=== PATIENT | female | born 1945 | race Caucasian/White ===

== ENCOUNTER → 2017-07-20 11:52 | Outpatient (CLI) | payer MEDICARE, SELFPAY ==
[2017-07-20 14:17] LABS: Absolute Lymphocyte Count 2.44 X10^3/ul (0.83-4.51); Absolute Neutrophil Count 7.2 X10^3/uL (2.0-7.7); Basophil# 0.03 X10^3/uL; Basophil% 0.3 % (0-1); Eosinophils% 1.8 % (0-5); Lymphocyte # 2.44 X10^3/ul (4.0); Lymphocyte % 22.1 % (19-41); Mean Corp Hgb Conc 33.3 g/gl (32-36); Mean Corpuscular Hgb 33.7 pg (27.0-32.0); Mean Platelet Vol. 9.3 fl (6.2-12.0); Monocyte# 1.17 X10^3/uL; Monocyte% 10.6 % (0-10); Neutrophil # 7.17 X10^3/uL (2.7-7.7); Neutrophil % 64.9 % (47-70); Platelet Count 340 K/mm3 (150-450); RBC Distribution Width CV 14.1 % (11.6-14.6); RBC Distribution Width SD 50.7 fl (35.1-43.9); Red Blood Count 4.16 M/mm3 (4.2-5.4)
[2017-07-20 14:18] LABS: POSITIVE COUNT NO; POSITIVE DIFFERENTIAL NO; POSITIVE MORPHOLOGY NO
[2017-07-20 14:22] LABS: ALB/GLOB Ratio 1.3 RATIO (0.9-2.4); AST(SGOT) 29 U/L (15-37); Alanine Aminotransfer ALT/SGPT 26 U/L (13-56); Albumin, Serum 4.5 g/dL (3.2-5.0); Alkaline Phosphatase 77 U/L (45-117); Anion Gap 8 (5-15); BUN 22 mg/dL (7-18); BUN/Creat Ratio 15.8 RATIO (10-20); Calcium,Total 9.9 mg/dL (8.5-10.1); Chloride 102 mmol/L (98-107); Creatinine, Serum 1.39 mg/dL (0.55-1.02); EST Glomerular Filtration Rate 40 mL/min (>60); Est Glom Filt Rate - Afr Amer 48 mL/min (>60); Globulin 3.5 g/dL (2.2-4.2); Glucose 67 mg/dL (74-106); Potassium 3.9 mmol/L (3.5-5.1); Sodium Level 139 mmol/L (136-145)
== END ==
PROVIDERS: Family Provider Family Medicine; PCP Family Medicine; Visit Provider Internal Medicine Rheumatology
DX: M06.032 Rheumatoid arthritis without rheumatoid factor, left wrist (principal); M79.7 Fibromyalgia; M16.0 Bilateral primary osteoarthritis of hip; M50.30 Other cervical disc degeneration, unspecified cervical region; M96.1 Postlaminectomy syndrome, not elsewhere classified; E03.9 Hypothyroidism, unspecified; Z79.899 Other long term (current) drug therapy
CPT/HCPCS: 36415; 80053; 85025

== ENCOUNTER → 2017-11-22 09:48 | Outpatient (CLI) | payer MEDICARE, SELFPAY | PROVIDERS: Family Provider Family Medicine; PCP Family Medicine; Visit Provider Family Medicine | DX: Z12.31 Encounter for screening mammogram for malignant neoplasm of breast (principal) | CPT/HCPCS: 77063; 77067 ==

== ENCOUNTER → 2017-12-19 13:14 | Outpatient (CLI) | payer MEDICARE, SELFPAY ==
--- NOTE | 2017-12-19 13:20 | CDU_ITS ---
Reason For Study: PVD Rt. Velocities/BP Lt. Velocities/BP Prox CCA 65/16 cm/sec. Prox CCA 89/23 cm/sec. Mid CCA 65/26 cm/sec. Mid CCA 83/29 cm/sec. Dist CCA 64/24 cm/sec. Dist CCA 77/29 cm/sec. Prox ICA 57/22 cm/sec. Prox ICA 41/12 cm/sec. Mid ICA 77/33 cm/sec. Mid ICA 59/23 cm/sec. Dist ICA 103/48 cm/sec. Dist ICA 138/62 cm/sec. Rt. ICA/CCA = 1.18. Lt. ICA/CCA = .7. Prox ECA 56/10 cm/sec. Prox ECA 63/19 cm/sec. Rt. Vert. 36/14 cm/sec. Lt. Vert. 57/17 cm/sec. Right Extracranial There is homogeneous, smooth atherosclerotic plaque noted in the right common carotid artery. There is heterogeneous, smooth atherosclerotic plaque noted in the right internal carotid artery. There is heterogeneous, irregular atherosclerotic plaque noted in the right external carotid artery. Antegrade flow is noted in the right vertebral artery. Left Extracranial There is homogeneous, smooth atherosclerotic plaque noted in the left common carotid artery. There is no significant atherosclerotic plaque noted in the left internal carotid artery. There is homogeneous, smooth atherosclerotic plaque noted in the left external carotid artery. Antegrade flow is noted in the left vertebral artery. Procedure Carotid Duplex 31994. Exam performed in department. Interpretation Summary Minimal smooth plague within the right internal carotid with <50% stenosis. No significant plague within the left internal carotid with <50% stenosis Normal flow bilateral external carotids Patent and antegrade vertebrals bilaterally Ordering Physician: Rex Garcia Referring Physician: TYE ODOM Performed By: Lara German, PHANI, RVT
--- NOTE | 2017-12-19 13:20 | ECHOD_ITS ---
Reason For Study: PHTN Procedure This was a 2D Doppler, Color Flow transthoracic echocardiogram. Exam performed in department. Left Ventricle Normal size and thickness. The estimated ejection fraction is 65 %. Stage 1 diastolic dysfunction. No regional wall motion abnormalities noted. Right Ventricle Normal size and thickness. A moderator band is seen in the right ventricle. Normal systolic function. Atria Normal left atrium. Normal right atrium. Normal atrial septum. Mitral Valve The mitral valve is structurally normal. No prolapse or stenosis seen. Trivial mitral valve insufficiency. Tricuspid Valve Normal tricuspid valve. Mild (1+) tricuspid valve insufficiency. Right ventricular systolic pressure estimated to be 41 mmHg. Mild pulmonary hypertension. Aortic Valve Normal aortic valve. Trisinus/trileaflet aortic valve. Pulmonic Valve Normal pulmonic valve. Great Vessels Normal aortic root. Normal arch. Normal inferior vena cava. Inferior vena cava collapse with sniff. Pericardium/Pleural No pericardial effusion. MMode/2D Measurements & Calculations LVIDd: 4.1 cm IVSd: 1.1 cm Ao root diam: 3.4 cm LVIDs: 2.5 cm LVPWd: 1.00 cm LA dimension: 3.0 cm RVDd: 3.1 cm FS: 38.9 % LAV(MOD-bp): 53.7 ml LA A4 area: 19.3 cm2 RA A4 area: 25.3 cm2 LAV(MOD-bp) Indexed: 30.6 ml/m2 LAV(MOD-sp2): 63.4 ml LAV(MOD-sp4): 46.9 ml Doppler Measurements & Calculations MV E max segun: 53.6 cm/sec Lat Peak E' Segun: 7.7 cm/sec Med Peak E' Segun: 12.8 cm/sec MV A max segun: 87.9 cm/sec E/E' lat: 6.9 E/E' med: 4.2 MV E/A: 0.61 Ao V2 max: 131.6 cm/sec LV V1 max: 98.8 cm/sec PA V2 max: 99.0 cm/sec Ao max P.9 mmHg LV V1 max P.9 mmHg TR max segun: 284.4 cm/sec TR max P.4 mmHg Interpretation Summary The estimated ejection fraction is 65 %. Stage 1 diastolic dysfunction. Trivial mitral valve insufficiency. Mild (1+) tricuspid valve insufficiency. Right ventricular systolic pressure estimated to be 41 mmHg. Mild pulmonary hypertension. Compared to echo report dated 07/06/2016, no appreciable changes noted. Ordering Physician: Rex Garcia Referring Physician: Stalin Wang Performed By: Melissa Duarte RDCS, RVT
== END ==
PROVIDERS: Family Provider Family Medicine; PCP Family Medicine; Visit Provider Internal Medicine Cardiovascular Disease
DX: I65.23 Occlusion and stenosis of bilateral carotid arteries (principal); I27.21 Secondary pulmonary arterial hypertension
CPT/HCPCS: 93306; 93880

== ENCOUNTER → 2017-12-20 12:22 | Outpatient (CLI) | payer MEDICARE, SELFPAY ==
--- NOTE | 2017-12-20 12:25 | STE_ITS ---
Reason For Study: Pre-Op Stress Results Protocol: Dobutamine Stress Echo Maximum Predicted HR: 150 bpm Target HR: 128 bpm% Maximum Pre dicted HR: 86 % DurationHeart Rate Stage (mm:ss) (bpm) BPComm ent Baseline 81 134/92 No Chest Pain DSE 10 MCG 3:13 85 143/104No Chest Pain DSE 20 MCG 3:00 10 6 144/94 No Chest Pain DSE 30 MCG 3:04 12 1 125/75 No Chest Pain DSE 40 MCG 2:55 12 9 107/68 No Chest Pain Recovery 89 123/85 No Chest Pain Stress Duration: 12:12 mm:ss Maximum Stress HR: 129 bpmME TS: 1 Baseline Echocardiogram Findings The estimated ejection fraction is 65 %. Stress Echo Wall motion Data Resting WMIntermediate WMStress WM Resting Wall Motion Wall Motion Stress No regional wall motion No regional wall motion abnormalities noted. abnormalities noted. EKG Data The baseline ECG demonstrates normal sinus rhythm with at rate of _ beats per minute. The patient was titrated from 10 mcg to a maximum of 40 mcg of dobutamine during the stress. The maximum heart rate attained was 133 beats per minute. This was 88% of maximum predicted heart rate. During dobutamine infusion, there were no ST or T wave changes noted to suggest ischemia. No clinical angina was noted. Interpretation Summary The estimated ejection fraction is 65 %. Normal, adequate, dobutamine echocardiogram. Negative for ischemia by EKG and echocardiographic criteria. No anginal symptoms noted. Rare PACs noted. Appropriate blood pressure response to dobutamine. Final LVEF is 75%. Test terminated due to the attainment of target heart rate. Ordering Physician: Rex Garcia Referring Physician: Rex Garcia Performed By: Kalyani Rossi RDCS
== END ==
PROVIDERS: Family Provider Family Medicine; PCP Family Medicine; Visit Provider Internal Medicine Cardiovascular Disease
DX: I36.1 Nonrheumatic tricuspid (valve) insufficiency (principal); R06.00 Dyspnea, unspecified; I10 Essential (primary) hypertension; I27.21 Secondary pulmonary arterial hypertension
CPT/HCPCS: 93017; 93350; J7030; A4216

== ENCOUNTER → 2018-05-17 13:10 | Outpatient (CLI) | payer MEDICARE, SELFPAY ==
[2018-03-04 13:21] VITALS: BMI 30.2
[2018-05-17 15:36] LABS: Absolute Lymphocyte Count 1.62 X10^3/ul (0.83-4.51); Absolute Neutrophil Count 2.2 X10^3/uL (2.0-7.7); Basophil# 0.02 X10^3/uL; Basophil% 0.4 % (0-1); Eosinophils% 4.3 % (0-5); Hematocrit 41.6 % (37-47); Hemoglobin 13.3 g/dl (12.0-15.0); Lymphocyte # 1.62 X10^3/ul (4.0); Lymphocyte % 35.1 % (19-41); Mean Corpuscular Hgb 31.1 pg (27.0-32.0); Mean Corpuscular Volume 97.4 fL (81-99); Mean Platelet Vol. 9.7 fl (6.2-12.0); Monocyte# 0.54 X10^3/uL; Monocyte% 11.7 % (0-10); Neutrophil # 2.22 X10^3/uL (2.7-7.7); Neutrophil % 48.3 % (47-70); Platelet Count 291 K/mm3 (150-450); RBC Distribution Width CV 12.8 % (11.6-14.6); RBC Distribution Width SD 45.3 fl (35.1-43.9); Red Blood Count 4.27 M/mm3 (4.2-5.4); White Blood Count 4.6 K/mm3 (4.4-11.0)
[2018-05-17 15:38] LABS: POSITIVE COUNT NO; POSITIVE DIFFERENTIAL NO; POSITIVE MORPHOLOGY NO
[2018-05-17 16:07] LABS: T4 Free Direct 1.01 ng/dL (0.76-1.46); Thyroid Stim Hormone (TSH) 1.22 uIU/mL (0.358-3.74)
== END ==
PROVIDERS: Family Provider Family Medicine; PCP Family Medicine; Visit Provider Family Medicine
DX: R53.83 Other fatigue (principal)
CPT/HCPCS: 36415; 84439; 84443; 85025

== ENCOUNTER → 2018-09-11 10:35 | Outpatient (CLI) | payer MEDICARE, SELFPAY ==
[2018-06-10 08:46] VITALS: BMI 29.2
[2018-09-11 12:23] LABS: Absolute Lymphocyte Count 1.01 X10^3/ul (0.83-4.51); Basophil# 0.01 X10^3/uL; Basophil% 0.2 % (0-1); Eosinophil# 0.02 X10^3/uL; Eosinophils% 0.4 % (0-5); Hematocrit 39.8 % (37-47); Hemoglobin 12.9 g/dl (12.0-15.0); Lymphocyte # 1.01 X10^3/ul (4.0); Lymphocyte % 18.7 % (19-41); Mean Corp Hgb Conc 32.4 g/gl (32-36); Mean Corpuscular Hgb 31.4 pg (27.0-32.0); Mean Corpuscular Volume 96.8 fL (81-99); Mean Platelet Vol. 9.1 fl (6.2-12.0); Monocyte# 0.41 X10^3/uL; Monocyte% 7.6 % (0-10); Neutrophil # 3.95 X10^3/uL (2.7-7.7); Neutrophil % 72.9 % (47-70); Platelet Count 329 K/mm3 (150-450); RBC Distribution Width CV 13.9 % (11.6-14.6); RBC Distribution Width SD 48.1 fl (35.1-43.9); Red Blood Count 4.11 M/mm3 (4.2-5.4); White Blood Count 5.4 K/mm3 (4.4-11.0)
[2018-09-11 12:24] LABS: POSITIVE COUNT NO; POSITIVE DIFFERENTIAL NO; POSITIVE MORPHOLOGY NO
[2018-09-11 12:57] LABS: ALB/GLOB Ratio 0.9 RATIO (0.9-2.4); AST(SGOT) 29 U/L (15-37); Alanine Aminotransfer ALT/SGPT 29 U/L (13-56); Albumin, Serum 3.6 g/dL (3.2-5.0); Alkaline Phosphatase 71 U/L (45-117); Anion Gap 10 (5-15); BUN 22 mg/dL (7-18); Calcium,Total 9.7 mg/dL (8.5-10.1); Chloride 104 mmol/L (98-107); EST Glomerular Filtration Rate 52 mL/min (>60); Est Glom Filt Rate - Afr Amer 63 mL/min (>60); Globulin 3.9 g/dL (2.2-4.2); Glucose 120 mg/dL (74-106); Potassium 4.2 mmol/L (3.5-5.1); Protein, Total 7.5 g/dL (6.4-8.2); Sodium Level 140 mmol/L (136-145); Thyroid Stim Hormone (TSH) 2.18 uIU/mL (0.358-3.74)
== END ==
PROVIDERS: Family Provider Family Medicine; PCP Family Medicine; Visit Provider Internal Medicine Rheumatology
DX: M06.00 Rheumatoid arthritis without rheumatoid factor, unspecified site (principal); M16.0 Bilateral primary osteoarthritis of hip; M50.30 Other cervical disc degeneration, unspecified cervical region; M96.1 Postlaminectomy syndrome, not elsewhere classified; M79.7 Fibromyalgia; E03.9 Hypothyroidism, unspecified; Z79.899 Other long term (current) drug therapy
CPT/HCPCS: 36415; 80053; 84439; 84443; 85025

== ENCOUNTER → 2018-11-25 11:54 | Outpatient (CLI) | payer MEDICARE, SELFPAY ==
[2018-06-10 08:46] VITALS: BMI 29.2
--- NOTE | 2018-11-25 11:56 | BI_ITS ---
MAMMOGRAPHY - BILATERAL SCREENING 3-D TOMOSYNTHESIS REASON FOR EXAM: Female, 73 years old. Bilateral Screening 3-D tomosynthesis PERTINENT HISTORY: Sister with breast cancer.. TECHNIQUE: 2-D mammograms and 3-D Tomosynthesis of the breast (s) were performed. CAD was performed. COMPARISON: 11/22/2017, 06/23/2016. FINDINGS: The breast composition is composed of scattered fibroglandular density. Small 4.5 mm smooth margined nodule along the right upper-outer quadrant, stable since prior Scattered benign calcifications are seen. No dense spiculated masses or suspicious microcalcifications are identified. No architectural distortion is identified. There is no skin thickening or retraction. There has been no significant change since the prior study. BI/SCREEN MAMM (CAD) W/YUMIKO BILAT IMPRESSION: No mammographic signs of malignancy. Routine yearly mammograms recommended. ASSESSMENT CATEGORY: BIRADS Category 2: Benign. A letter regarding these results will be sent to the patient by the facility within 30 days. FOLLOW UP RECOMMENDATION: Yearly follow up mammogram recommended. (A) Approximately 10% of breast cancers are not detected by mammography. A normal mammogram should not delay biopsy of a clinically suspicious abnormality. Electronically Signed: Jaspal Ramirez MD at 10:55 EDT Tel [phone], Service support ,
== END ==
PROVIDERS: Family Provider Family Medicine; PCP Family Medicine; Referring Provider Family Medicine; Visit Provider Family Medicine
DX: Z12.31 Encounter for screening mammogram for malignant neoplasm of breast (principal)
CPT/HCPCS: 77063; 77067

== ENCOUNTER → 2019-01-07 09:17 | Outpatient (CLI) | payer MEDICARE, SELFPAY ==
[2018-06-10 08:46] VITALS: BMI 29.2
[2019-01-07 12:34] LABS: Absolute Lymphocyte Count 1.97 X10^3/uL (0.83-4.51); Absolute Neutrophil Count 4.3 X10^3/uL (2.0-7.7); Basophil# 0.02 X10^3/uL; Basophil% 0.3 % (0-1); Eosinophil# 0.12 X10^3/uL; Eosinophils% 1.7 % (0-5); Hematocrit 44.4 % (37-47); Hemoglobin 14.1 g/dL (12.0-15.0); Lymphocyte # 1.97 X10^3/ul (4.0); Lymphocyte % 27.5 % (19-41); Mean Corp Hgb Conc 31.8 g/dL (32-36); Mean Corpuscular Hgb 30.9 pg (27.0-32.0); Mean Corpuscular Volume 97.4 fL (81-99); Mean Platelet Vol. 9.7 fl (6.2-12.0); Monocyte# 0.72 X10^3/uL; Monocyte% 10.1 % (0-10); NRBC Flagged by Analyzer 0 % (0-5); Platelet Count 295 K/mm3 (150-450); RBC Distribution Width CV 12.9 % (11.6-14.6); RBC Distribution Width SD 46.3 fl (35.1-43.9); Red Blood Count 4.56 M/mm3 (4.2-5.4); White Blood Count 7.2 K/mm3 (4.4-11.0)
[2019-01-07 13:06] LABS: Anion Gap 9 (5-15); BUN 27 mg/dL (7-18); BUN/Creat Ratio 22.9 RATIO (10-20); Calcium,Total 8.9 mg/dL (8.5-10.1); Chloride 103 mmol/L (98-107); Creatinine, Serum 1.18 mg/dL (0.55-1.02); EST Glomerular Filtration Rate 48 mL/min (>60); Est Glom Filt Rate - Afr Amer 58 mL/min (>60); Glucose 96 mg/dL (74-106); Sodium Level 142 mmol/L (136-145); Thyroid Stim Hormone (TSH) 0.39 uIU/mL (0.358-3.74)
== END ==
PROVIDERS: Family Provider Family Medicine; PCP Family Medicine; Visit Provider Family Medicine
DX: R53.83 Other fatigue (principal); R42 Dizziness and giddiness; E03.9 Hypothyroidism, unspecified
CPT/HCPCS: 36415; 80048; 84439; 84443; 85025

== ENCOUNTER → 2019-01-25 10:14 | Outpatient (CLI) | payer MEDICARE, SELFPAY ==
[2019-01-23 11:24] VITALS: BMI 29.8
[2019-01-25 11:22] LABS: AST(SGOT) 32 U/L (15-37); Alanine Aminotransfer ALT/SGPT 21 U/L (13-56); Alkaline Phosphatase 82 U/L (45-117); Bilirubin, Direct 0.11 mg/dL (0.00-0.30); Cholesterol 179 mg/dL (200); Globulin 3.8 g/dL (2.2-4.2); High Density Lipoprotein 70 mg/dL; Protein, Total 7.8 g/dL (6.4-8.2); Triglycerides 59 mg/dL; Very Low Density Lipoprotein 12 mg/dL (5-40)
== END ==
PROVIDERS: Family Provider Family Medicine; PCP Family Medicine; Referring Provider Internal Medicine Cardiovascular Disease; Visit Provider Internal Medicine Cardiovascular Disease
DX: E78.00 Pure hypercholesterolemia, unspecified (principal)
CPT/HCPCS: 36415; 80061; 80076

== ENCOUNTER → 2019-02-06 09:15 | Outpatient (CLI) | payer MEDICARE, SELFPAY ==
[2019-01-23 11:24] VITALS: BMI 29.8
--- NOTE | 2019-02-06 09:17 | ECHOD_ITS ---
Reason For Study: PRE OP EXAM Procedure This was a 2D Doppler, Color Flow transthoracic echocardiogram. Exam performed in department. Left Ventricle Normal size and thickness. The estimated ejection fraction is 65 %. Stage 1 diastolic dysfunction. No regional wall motion abnormalities noted. Right Ventricle Normal size and thickness. A moderator band is seen in the right ventricle. Normal systolic function. Atria Normal left atrium. The right atrium is moderately enlarged. Normal atrial septum. Bubble contrast study negative for right to left interatrial shunt. Mitral Valve The mitral valve is structurally normal. No prolapse or stenosis seen. Trivial mitral valve insufficiency. Tricuspid Valve Normal tricuspid valve. Mild to moderate (1-2+) tricuspid valve insufficiency. Right ventricular systolic pressure estimated to be 31 mmHg. Aortic Valve Normal aortic valve. Trisinus/trileaflet aortic valve. Pulmonic Valve Normal pulmonic valve. Trivial pulmonic valve insufficiency. Great Vessels Normal aortic root. Normal arch. Normal inferior vena cava. Inferior vena cava collapse with sniff. Pericardium/Pleural No pericardial effusion. MMode/2D Measurements & Calculations LVIDd: 4.9 cm IVSd: 0.99 cm Ao root diam: 3.2 cm LVIDs: 2.9 cm LVPWd: 0.89 cm RVDd: 3.5 cm FS: 41.9 % LAV(MOD-bp): 45.0 ml LA A4 area: 17.6 cm2 LA dimension(2D): 3.5 cm LAV(MOD-bp) Indexed: 25.6 ml/m2 LAV(MOD-sp2): 47.5 ml LAV(MOD-sp4): 42.4 ml RA A4 area: 27.6 cm2 Time Measurements MV dec time: 0.22 sec Doppler Measurements & Calculations MV E max segun: 52.9 cm/sec Lat Peak E' Segun: 6.9 cm/sec Med Peak E' Segun: 9.0 cm/sec MV A max segun: 83.3 cm/sec E/E' lat: 7.7 E/E' med: 5.9 MV E/A: 0.64 Ao V2 max: 146.7 cm/sec LV V1 max: 88.8 cm/sec PA V2 max: 94.5 cm/sec Ao max P.6 mmHg LV V1 max P.2 mmHg TR max segun: 252.0 cm/sec TR max P.4 mmHg Interpretation Summary The estimated ejection fraction is 65 %. Stage 1 diastolic dysfunction. The right atrium is moderately enlarged. Bubble contrast study negative for right to left interatrial shunt. Trivial mitral valve insufficiency. Mild to moderate (1-2+) tricuspid valve insufficiency. Right ventricular systolic pressure estimated to be 31 mmHg. Compared to echo report dated 12/19/2017, LV Function has remained the same and RVSP has improved from 41 to 31 mm Hg. Ordering Physician: Rex Garcia Referring Physician: Stalin Wang Performed By: Melissa Duarte, PHANI, RVT
== END ==
PROVIDERS: Family Provider Family Medicine; PCP Family Medicine; Referring Provider Internal Medicine Cardiovascular Disease; Visit Provider Internal Medicine Cardiovascular Disease
DX: Z01.810 Encounter for preprocedural cardiovascular examination (principal)
CPT/HCPCS: 93306; A4216

== ENCOUNTER → 2019-02-13 12:34 | Outpatient (CLI) | payer MEDICARE, SELFPAY ==
[2019-01-23 11:24] VITALS: BMI 29.8
[2019-02-06 09:44] VITALS: BMI 29.8
--- NOTE | 2019-02-13 12:35 | STE_ITS ---
Reason For Study: PRE-OP, HTN Stress Results Protocol: Dobutatmine Stress Echo Maximum Predicted HR: 149 bpm Target HR: 127 bpm % Maximum Predicted HR: 87 % DurationHeart Rate Stage (mm:ss) (bpm) BP Dose Comment BASELINE 83 157/92 DSE- 10 MCG 3:54 86 171/61427.00NO SX DSE- 20 MCG 3:15 118 151/9020.00NO SX DSE- 30 MCG 2:29 129 130/9030.00NO SX RECOVERY 96 129/86 DENIES COMPLAINT Stress Duration: 9:38 mm:ss Maximum Stress HR: 129 bpm Baseline Echocardiogram Findings The estimated ejection fraction is 65 %. Stress Echo Wall motion Data Resting WM Intermediate WM Stress WM Resting Wall Motion Wall Motion Stress No regional wall motion No regional wall motion abnormalities noted. abnormalities noted. EKG Data Normal intervals are noted. The patient was titrated from 10 mcg to a maximun of 30 mcg of dobutamine during the stress. The maximum heart rate attained was 142 beats per minute. This was 95% of maximum predicted heart rate. During dobutamine infusion, there were no ST or T wave changes noted to suggest ischemia. No clinical angina was noted. No arrhythmias noted. Interpretation Summary The estimated ejection fraction is 65 %. Normal, adequate, dobutamine echocardiogram. Negative for ischemia by EKG and echocardiographic criteria. No anginal symptoms noted. No arrhythmias noted. Hypertensive blood pressure response to dobutamine. Final LVEF is 75%. Test terminated due to target heart rate achieved. No complications. Ordering Physician: Rex Garcia Referring Physician: Rex Garcia Performed By: Kalyani Rossi RDCS
== END ==
PROVIDERS: Family Provider Family Medicine; PCP Family Medicine; Referring Provider Internal Medicine Cardiovascular Disease; Visit Provider Internal Medicine Cardiovascular Disease
DX: Z01.810 Encounter for preprocedural cardiovascular examination (principal); I10 Essential (primary) hypertension; I27.21 Secondary pulmonary arterial hypertension; I36.1 Nonrheumatic tricuspid (valve) insufficiency; Z79.899 Other long term (current) drug therapy
CPT/HCPCS: 93017; 93350; J7040; A4216

== ENCOUNTER 2019-03-26 08:28 | Inpatient (IN) | payer MEDICARE, SELFPAY ==
[2018-06-10 08:46] VITALS: BMI 29.2
[2019-02-06 09:44] VITALS: BMI 29.8
[2019-03-12 11:17] VITALS: BP 139/93; PULSE 67; RESP 17; TEMP 37.2; O2SAT 99; BMI 31.6
[2019-03-12 12:54] LABS: Absolute Lymphocyte Count 2.35 X10^3/uL (0.83-4.51); Absolute Neutrophil Count 4.2 X10^3/uL (2.0-7.7); Basophil# 0.02 X10^3/uL; Basophil% 0.3 % (0-1); Eosinophil# 0.07 X10^3/uL; Hematocrit 41.4 % (37-47); Hemoglobin 13.5 g/dL (12.0-15.0); Lymphocyte # 2.35 X10^3/ul (4.0); Lymphocyte % 32.3 % (19-41); Mean Corp Hgb Conc 32.6 g/dL (32-36); Mean Corpuscular Hgb 31.2 pg (27.0-32.0); Mean Corpuscular Volume 95.6 fL (81-99); Mean Platelet Vol. 9.1 fl (6.2-12.0); Monocyte% 8.2 % (0-10); NRBC Flagged by Analyzer 0 % (0-5); Neutrophil # 4.23 X10^3/uL (2.7-7.7); Neutrophil % 58.1 % (47-70); Platelet Count 280 K/mm3 (150-450); RBC Distribution Width CV 13.6 % (11.6-14.6); RBC Distribution Width SD 47.8 fl (35.1-43.9); Red Blood Count 4.33 M/mm3 (4.2-5.4); White Blood Count 7.3 K/mm3 (4.4-11.0)
[2019-03-12 13:07] LABS: International Normalized Ratio 1.1; Prothrombin Time (Protime)PT. 13.6 SECONDS (11.7-14.9)
[2019-03-12 13:08] LABS: Partial Thromboplast Time 35.2 Seconds (24.1-36.2)
[2019-03-12 13:16] LABS: ALB/GLOB Ratio 1.1 RATIO (0.9-2.4); AST(SGOT) 32 U/L (15-37); Alanine Aminotransfer ALT/SGPT 25 U/L (13-56); Albumin, Serum 4.2 g/dL (3.2-5.0); Alkaline Phosphatase 76 U/L (45-117); Anion Gap 6 (5-15); BUN 18 mg/dL (7-18); BUN/Creat Ratio 16.5 RATIO (10-20); Bilirubin, Direct 0.13 mg/dL (0.00-0.30); Calcium,Total 9.8 mg/dL (8.5-10.1); Chloride 102 mmol/L (98-107); Creatinine, Serum 1.09 mg/dL (0.55-1.02); EST Glomerular Filtration Rate 53 mL/min (>60); Est Glom Filt Rate - Afr Amer 64 mL/min (>60); Estimated Creatinine Clearance 37.44 ml/min; Globulin 3.8 g/dL (2.2-4.2); Glucose 71 mg/dL (74-106); Potassium 3.8 mmol/L (3.5-5.1); Sodium Level 139 mmol/L (136-145)
--- NOTE | 2019-03-13 10:54 | PCM.HP.BLA ---
History and Physical History and Physical Patient Name: Meredith Nogueira : 1945 From: ZACHARY RAMIREZ PA-C DATE OF SURGERY: 03/26/2019 SCHEDULED PROCEDURE: revision right total knee arthroplasty HISTORY OF PRESENT ILLNESS: Preoperative history and physical exam was performed on March 12, 2019. This is a 73-year-old female who is been having ongoing pain in her right knee. Patient has had a previous right total knee arthroplasty by Dr. Jad Her on March 27, 2011. Patient has been having increased pain as well as instability in her right knee. She has required the use of her brace. She also has been using a cane for ambulatory assistance. Patient canceled her previous surgery due to her passing away. Patient states her pain is intermittent. She has increased pain going up and down stairs and sitting. She has difficult time with activities of daily living including housework and cleaning as well as leisure activities such as hiking. She has had falls as well as tripped/stumbled due to the right knee pain. Patient has tried rest, ice, heat, elevation with minimal relief. She has been through formal physical therapy without relief. She has continued to work on home exercises. Patient's pain can reach as high as a 5/10. Patient has a medical history of hypertension, intermittent palpitations, secondary pulmonary arterial hypertension, tricuspid valve insufficiency, fibromyalgia, gastroesophageal reflux disease, and rheumatoid arthritis. Patient currently takes Humira, prednisone, plaquenil, and methotrexate. She is also on gabapentin and Zanaflex. Patient does see a cot assembler. Patient has already stopped her Humira anticipating surgery. She denies any current fevers, chills, recent infections. There's been no chest pain or shortness of breath. We have obtain surgical clearance from patient's animal pathology teacher Dr. Garcia. After failing conservative measures and discussing treatment options of Dr. Samson Pink, the patient would like to proceed with a revision right total knee arthroplasty. REVIEW OF SYSTEMS: ROS: Const: Denies anorexia, anxiety, change in appetite, fever, difficulty sleeping and weight change. CV: Reports heart murmur, but denies chest pain, irregular heartbeat and peripheral vascular disease. Resp: Denies asthma, cough, pneumonia, sleep apnea, shortness of breath, tuberculosis and wheezing. GI: Reports constipation, but denies diarrhea, heartburn, nausea, rectal itching, bloody stools and vomiting. : Denies incontinence. Musculo: Reports leg swelling, pain and trouble walking, but denies weakness. Skin: Denies Raynaud's, history of shingles and tattoo. Neuro: Denies ambulatory dysfunction, dizziness, numbness/tingling and tremor. Psych: Denies anxiety, depression, insomnia, mental illness and stress. Thomas/Lymph: Denies anemia, bleeding/bruising tendency and past transfusion. Reviewed, no changes. PAST MEDICAL HISTORY: Advance Care Plan: No Advance Directives Effective Date: 02/13/2017 PMH: Medical Problems: Arthritis, Thyroid Disease, Fibromyalgia, Lupus Accidents: Fracture - L Elbow 2001 RT Shoulder Injury - (10/19/2014) FALL Surgical Hx: Hernia Repair - 2007 [facility] Hysterectomy - 1984 [facility] Tonsillectomy - 1956 [place], [place] Tubal Ligation - 1981 [facility] Arthroscopy - Torn Meniscus 2001 [facility] C Section 79,82 Knee Replacement - L TKR 02/13/08 [facility] Carpal Tunnel Release LT - [facility] 01/2010 Carpal Tunnel Release RT - [facility] 08/2010 RT Foot Surgery - 2009 Back Surgery - 03/14/2010-DR GAMBOA L2-3-4-5 FUSION RT TKR - 03/27/11 MARCELO @ [facility] LT Index Finger Synovectomy Of Metacarpophalangeal - (09/07/2011) MELO @ [facility] Julio Eye Lens Replacements RT Reverse Shoulder Replacement - (2015) [facility] RT Wrist - (2015) [facility] LT Hammer Toe - (2016) Anesthesia Complications: None Assistive Devices: Glasses, Dentures, Brace, Cane Reviewed and updated. 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 Personal Habits: Smoking: Patient has never smoked.Cigarette Use: Never.Alcohol: Denies use.Drug Use: Denies Use.Enjoy Exercising: Daily. Reviewed and updated. VITALS: Ht: 62 Wt: 173lb Wt k.473 BMI: 31.6 BP: 148/92 Pulse: 76 Resp: 14 T: 97.8 T: 36.6C ALLERGIES: PCN - Rash Pain Killers Unknown - (Prescription Only)Nausea Aspirin MEDICATIONS: Folic Acid 1 mg 2 po qdAY, Selenium 200 mcg 1po qday, Iron 65 mg 1po qday, Levothyroxine Sodium 112 mcg 1 by mouth every day, Pantoprazole Sodium 40 mg 1 by mouth every day, Venlafaxine HCL 75 mg one PO daily, Hydroxychloroquine Sulfate 200 mg 2 by mouth every day, Gabapentin 300 mg 1 by mouth three times a day, Tizanidine HCL 4 mg 1 by mouth at three times a day, Excedrin Migraine 250-250-65 mg prn for migraines, Humira Pen 40 mg/0.4ml uad, Prednisone 10 mg tad prn, Flonase Allergy Relief 50 mcg/Act 2 sprays each nostril daily, Mucinex D 60-600 mg 1 tab PO bid, Multi Vitamin Daily 1 tab PO daily, Vitamin C 500 mg 2 tabs PO daily, Magnesium 250 mg 2 tabs PO daily, Potassium Gluconate 595 (99 k) mg 1 tab PO daily, Vitamin B12 500 mcg 2 tabs PO daily, Calcium 1 tab PO daily, Vitamin D3 50 mcg (2000 Ut) 1 by mouth every day, Ensure Max Protein 1 drink daily PRE-OP EXAM: General appearance:NORMAL Other: Eyes: Conjunctivae and lids: NORMAL Pupils: ERR Ears, Nose, Mouth, and Throat: NORMAL Other: Inspection of lips, teeth and gums: NORMAL Other: Neck: Examination of neck: no masses noted. Respiratory: Assessment of respiratory effort: NORMAL Other: Auscultation of lungs: clear to auscultation no wheezes, rhonchi or rales. Cardiovascular: Auscultation of heart: regular rate and rhythm, no murmurs, gallops or rubs. Gastrointestinal: Exam of abdomen: soft, nontender, nondistended bowel sounds present. PHYSICAL EXAMINATION: Patient does walk without any antalgic gait. She does use a cane. Right knee previous incision is well healed without erythema or signs of infection. Patient has tenderness to palpation along the pes anserine. Range of motion: Right knee 5 hyperextension to 130 flexion. Patient has 4 anterior translation with anterior drawer exam, 7 valgus. At 30 correctable valgus alignment with 3 mm opening laterally, 2 mm medially. Sensation intact to light touch. Neurovascularly intact. IMAGING STUDIES: Previous x-rays of the right knee show progressive valgus alignment of the knee. It appears metal on metal contact consistent with fracturing of the polyethylene component. IMPRESSION: 1. Painful right total knee arthroplasty with instability 2. Hypertension 3. Secondary pulmonary arterial hypertension 4. Tricuspid valve insufficiency 5. Intermittent palpitations 6. Fibromyalgia 7. Gastroesophageal reflux disease 8. Rheumatoid arthritis PLAN: Dr. Samson Pink did discuss and review with the patient all treatment options including surgical versus nonsurgical options. Patient does wish to proceed with the above-stated procedure. Potential risks, benefits, and complications of the procedure were discussed in detail including but not limited to , infection, nerve and blood vessel damage, persistent pain, numbness, tingling, paresthesias, blood clot, pulmonary embolism, and requirement for possible further surgery. The patient expressed full understanding and has no further questions for the doctor. Patient does agree to proceed with the above-stated procedure and has signed the surgery consent form. This dictation was created using voice recognition software. Phonetic and/or grammatical errors may exist. ___ I have re-examined the patient. There are no clinical changes since date of exam. ___ See progress notes for changes. ___ Dictated on admission Date: Time: Signature:
[2019-03-26] VITALS (13 sets, daily range): BP systolic 103–138; BP diastolic 61–95; PULSE 75–102; RESP 16–18; TEMP 36.2–37.2; O2SAT 92–100; BMI 31.6
[2019-03-26] MEDS: Magnesium Sulfate 4gm/100mL 4 GM/100 ML IV.SOLN. IV (07:00)
[2019-03-26 09:21] LABS: Bedside Glucose 107 mg/dL (70-110)
[2019-03-26] MEDS: Gabapentin 600 MG Tablet PO (09:42)
[2019-03-26] MEDS: Acetaminophen 500 MG Tablet 1000 MG PO ×2 (09:43→22:09)
[2019-03-26] MEDS: Lactated Ringers 1,000 ML 125 ML IV ×3 (10:00→22:10)
[2019-03-26] MEDS: Cefazolin 2 GM in 0.9% Normal Saline 100 ML IV (10:40)
--- NOTE | 2019-03-26 12:22 | PCM.OPRPT ---
Report of Operation Date of Procedure: 03/26/19 Pre-Operative Diagnosis: Failed right total knee replacement, gross instability Post-Operative Diagnosis: Failed right total knee replacement, gross instability. Posterior lateral polyethylene fracture Surgery/Procedure Performed:: Complete revision right total knee replacement, entire femur and tibia Description of Surgical Findings:: Patient was grossly unstable intraoperatively with posterior lateral polyethylene fracture. Due to her previous cruciate retaining total knee replacement associated instability we needed to revise to a constrained implant. flatwork finisher: Nyla Salazar Type of Anesthesia:: Spinal Anesthesiologist: Kirby Steel Special Medications: 2 g Ancef, 1 g TXA at incision, 1 g TXA closure, 10 mg Decadron, joint cocktail (5 mg Duramorph, 30 mL of 0.5% Ropivicaine, 1000 units of epinephrine, 30 mg of Toradol) Estimated Blood Loss (mL): 75 Fluids Replaced: 1100 mL crystalloid Description of Procedure: Implants used: Femur: 4 TS Irish femur with 10 mm distal medial and lateral and lateral augments, 15 x 100 mm cemented stem Tibia: 5 universal tibial baseplate with 15 x 50 mm cemented stem. Size C tibial cone Poly: Size 5, 16 mm TS X3 polyethylene Brief history operative indications: 73-year-old female with total knee replacement in 2010. Patient demonstrated gross instability in the office with posterior lateral catching. After ruling out infection we agreed to proceed with revision total knee replacement which had risks which include but not limited to blood loss, DVTs, PEs, nervous damage, infection, the risk of anesthesia. Patient demonstrate understanding was able to sign informed consent. Medical clearance was obtained. Procedure: On the date of procedure patient's right lower extremity was marked in the preoperative area. The patient was then taken back to the operating room where the patient was placed on the table in the supine position. All bony prominences were identified a well-padded. Anesthesia assumed control of the C-spine and airway and remained controlled throughout the remainder of the procedure. A tourniquet was placed on the right upper thigh and the leg was prepped in a sterile fashion. The surgeon then scrubbed at this time. Upon reentering the room right lower extremity was draped in a standard orthopedic fashion. A timeout was then called and everyone agreed upon the side, the site, the procedure to be performed, patient's identity and antibiotics given. An Esmarch bandage was used to exsanguinate the extremity and the tourniquet was placed up to 250 mmHg with the knee in flexion. A midline skin incision was made using the previous incision and extending it proximally and distally to identify normal tissue planes. Medial and lateral flaps were developed appropriate releases. The standard medial parapatellar arthrotomy was made and the patella was subluxed laterally. At this time an aggressive synovectomy was performed re-creating the medial gutter first, then the suprapatellar pouch than the lateral gutter. Once this was completed the knee was flexed up an osteotome was used to remove the tibial polyethylene. The remainder of the synovium was debrided. The standard deep MCL release was done and the patella scar pad was resected and lateral releases were performed. Next our attention was directed to the femur. Wear flexible osteotomes and TPS saw were used to break up the implant cement interface. This was done both medially and laterally. After this is adequately lucent bone tamp was used to remove the femur component from the end of the bone. This was done with minimal bone loss. At this time attention was now directed towards the proximal tibia. Possible osteotome and TPS saw were then used to break up the proximal tibia implant interface and stacked osteotomes were used to remove the tibial implant. This was done with minimal bone loss. Our attention was then turned to the tibia where the intramedullary canal was reamed to 16 and a size C tibial cone was reamed. We then made a cleanup cut on the tibia, A drop kinza was then used to verify the cut. A size 5 tibial base plate was selected. the knee was flexed and the tibial component was pinned into place and the boss reamer was used to ream the proximal medullary canal. The trial implant was impacted in its prepared position. Our attention was then turned back to the femur or the femur intramedullary canal was reamed to 18 mm using the previous implants a size 4 TC G cutting guide with a 18 x 100 mm stem was put into place. The medial epicondyle was used to set the joint line. With this TC G cutting guide we used a 16 mm polyethylene trial in order to help balance the gaps. Once the gaps were appropriately balanced the guide was firmly pinned into place. Distal cuts were made with 10 mm augments medially and laterally. Posterior cuts were made with 0 augments medially and laterally. Using the guide the box cut was made using a reciprocating saw. The appropriate trials were then placed on the femur and tibia. A trial polyethylene was trialed to ensure proper balancing and stability of the knee. Patella tracking, was then verified and corrected appropriately as needed. Our attention was then directed to the patella. Patella remained intact and appropriate. Based on x-rays it was firmly fixed. Patellar tracking was again checked and deemed appropriate. Final components were verified and opened, 6 liters of normal saline were irrigated throughout the joint under low-pressure lavage. Then the cement was mixed in a vacuum. [employer] Simplex cement with tobramycin was used. The wound was copiously irrigated with normal saline. When the cement was ready cement plugs were placed in the tibial cone was placed the components were cemented into place starting with the tibia, femur. The trial poly component was placed and the knee was placed in full extension. All excess cement was removed in the process. Once the cement had cured the tracking, alignment and balance were verified and a size 16 TS polyethylene component was placed. Once the final components were placed a chlorhexidine lavage was used and the wound was copiously irrigated with normal saline solution and the remainder of the periarticular injection was given. The wound was closed in a layer starr fashion using #1 vicryl interrupted sutures for the arthrotomy, 2-0 interrupted Vicryl for the subcuticular layer and opal for final skin closure. A sterile compressive dressing was then placed. The patient was then awakened from anesthesia, transferred to the [facility] and transferred to the PACU for recovery. Post op plan DVT ppx: ASA 81mg BID, thigh high compression stockings Follow up: in office in 2 weeks for wound check PT: to start POD #0 at hospital, outpatient PT should be arranged. My physician professional nursing assistant was a vital part of this case. He was important in appropriate retraction during the case, and protection of soft tissues during bony cuts. His intimate knowledge of the case and my steps aided in safe and expedient completion of the procedure as well as appropriate position of the leg during the case. He was also vital in assisting with closure under my direct supervision. - Complications No intraoperative complications - Admit VTE Documentation VTE Present on Admission: No VTE Mechan Device Prophylaxis: SCD's, Thigh High PRIYA Hose VTE Pharm Prophylaxis ordered?: Yes
--- NOTE | 2019-03-26 13:28 | RAD_ITS ---
STUDY: X-RAY - RIGHT KNEE REASON FOR EXAM: Female, 73 years old. A 4 and a TECHNIQUE: 2 view(s) of the knee. COMPARISON: None. FINDINGS: Status post total knee arthroplasty. Alignment is anatomic. Hardware intact. Postsurgical changes within the soft tissues. RAD/Knee 1 or 2 Views IMPRESSION: Status post total right knee arthroplasty. Electronically Signed: Robe Delcid, at 17:47 EST Tel , Service support ,
[2019-03-26] MEDS: Senna/Docusate Sodium 1 Tablet 2 TABLET PO ×2 (15:58→22:09)
[2019-03-26] MEDS: Ensure Surgery 237 ML LIQUID PO ×2 (15:58→17:53)
[2019-03-26] MEDS: Pantoprazole Sodium 40 MG Tablet PO (15:59)
[2019-03-26] MEDS: Aspirin 81 MG TAB.CHEW PO (16:00)
[2019-03-26] MEDS: Hydroxychloroquine 200 MG Tablet PO (16:03)
--- NOTE | 2019-03-26 16:48 | PN_ITS ---
<Buck Multani - Last Filed: 03/26/19 16:48> Reason for Visit: right total knee revision Subjective: This is a 73 year old female with pmhx of RA/Lupus, pulmonary htn, HTN, fibromyalgia, tricuspic insufficiency, who underwent a right total knee revision today with Dr. Pink. Post op she is doing well. She has no pain in the knee at rest. She ambulated after surgery with mild knee right distal thigh pain near the knee. No nausea or vomiting. Tolerating PO intake. No SOB/cough. No fevers/chills. With regards to her RA - she states she has RA with evidence of also having lupus tho it is not definitive. She take humira every 2 weeks, and has been instructed by Dr. Albarado (rheumatology) to not take it for 6 weeks. She also uses prednisone PRN when she has flares of pain. When she has a flare she will take 3-5 days then stop. She uses plaquenil daily. She was on MTX however was taken off of it this year because she states it was not doing anything to help. Currently no flare. Vitals/I&O's: Vital Signs Temp Pulse Resp BP Pulse Ox 98.3 F 84 16 138/81 H 92 03/26/19 15:19 03/26/19 15:19 03/26/19 15:19 03/26/19 15:19 03/26/19 15:19 Oxygen Flow Rate (L/min) 6 Oxygen Delivery Method Room Air Weight: 173 lb 1.006 oz Body Mass Index (BMI) 31.6 Intake and Output for Last 24 Hours 03/24/19 03/25/19 03/26/19 23:59 23:59 23:59 Intake Total 1330 / 1330 Balance 1330 / 1330 General: Alert, Oriented x3, Cooperative HEENT: Atraumatic, PERRLA, EOMI, Normocephalic Neck: Supple, No JVD, Negative Carotid Bruits Lungs: Clear to auscultation, Normal air movement Cardiovascular: Regular rate, Murmur - 3/6 sytolic murmur best at RSB position 1 Abdomen: Bowel Sounds Present, Soft, Non Tender Extremities: No edema, Capillary Refill Less than 3 Seconds Skin: No rashes, No breakdown Musculoskeletal: No Tenderness to Palpation of Joints or Extremities Neurological: Cranial nerves II-XII grossly intact Psych/Mental Status: Normal Affect, Appropriate, Alert and oriented to time, place, person, mood and affect Laboratory Results 03/26/19 09:16: POC Glucose 107 Current Medications Acetaminophen (Tylenol) 1,000 mg PO Q8 [facility] Ascorbic Acid (Vitamin C) [facility] Aspirin (Aspirin, Baby) [facility] Last Admin: 03/26/19 16:00 Dose: 81 mg Documented by: Calcium Carbonate (Tums) 1,[facility] Carvedilol (Coreg) 3.125 mg PO BID [facility] Cholecalciferol (Vitamin D) 2,000 [facility] Doxycycline Monohydrate (Doxycycline) 100 mg PO BID [facility] Stop: 04/02/19 22:01 Enteral Nutritional Formula (Ensure Surgery) 237 ml PO TIDCM [facility] Last Admin: 03/26/19 15:58 Dose: 237 ml Documented by: Famotidine (Pepcid) 20 mg PO DAILY [facility] Folic Acid (Folic Acid) 1 mg PO DAILY@0800 [facility] Gabapentin (Neurontin) 300 mg PO Q8H [facility] Hydroxychloroquine Sulfate (Plaquenil) [facility] Last Admin: 03/26/19 16:03 Dose: 200 mg Documented by: Lactated Ringer's () 1,000 mls @ 125 mls/hr IV .Q8H [facility] Last Admin: 03/26/19 12:15 Dose: 125 mls/hr Documented by: Cefazolin Sodium () 1 gm in 50 mls @ 150 mls/hr IV Q8H [facility] Stop: 03/27/19 03:19 Insulin Human Lispro (Humalog Kwikpen (Bkc)) 1 - 6 unit SC Q4H PRN PRN; Protocol PRN Reason: BG>/= 180, SEE PROTOCOL Ketorolac Tromethamine (Toradol) 15 mg IV Q6H PRN PRN PRN Reason: Pain Score 1-5/10 Stop: 03/28/19 07:00 Levothyroxine Sodium (Synthroid) 112 mcg PO DAILY@0600 [facility] Meloxicam (Mobic) 7.5 mg PO BID [facility] Morphine Sulfate () 2 - 4 mg IV Q2H PRN PRN PRN Reason: Pain Score 6-10/10 Morphine Sulfate () 2 - 4 mg IV Q2H PRN PRN PRN Reason: Pain Score 6-10/10 Ondansetron HCl (Zofran) 4 mg IV Q8H PRN PRN PRN Reason: NAUSEA Oxycodone HCl (Oxyir) 5 - 10 mg PO Q4H PRN PRN PRN Reason: Pain Score 4-10/10 Pantoprazole Sodium (Protonix) 40 mg PO DAILY [facility] Last Admin: 03/26/19 15:59 Dose: 40 mg Documented by: Prednisone () 10 mg PO DAILY PRN PRN Reason: flare ups RA Promethazine HCl (Phenergan) 12.5 mg IM Q6H PRN PRN; Protocol PRN Reason: NAUSEA/VOMITING Senna/Docusate Sodium (Senokot-S, Fern-Colace) 2 tablet PO BID [facility] Last Admin: 03/26/19 15:58 Dose: 2 tablet Documented by: Sodium Chloride () 10 - 40 ml IV UD PRN PRN Reason: SALINE FLUSH Venlafaxine HCl (Effexor Xr) 75 mg PO QHS [facility] STROKE Vital Signs/Narrative: Vital Signs Temp Pulse Resp BP Pulse Ox 03/26/19 15:19 98.3 F 84 16 138/81 H 92 03/26/19 14:47 97.2 F L 80 16 131/72 H 100 03/26/19 14:45 80 18 111/61 100 03/26/19 14:30 80 18 125/75 H 100 03/26/19 14:15 79 18 126/67 H 100 03/26/19 14:00 79 18 124/76 H 100 03/26/19 13:45 78 18 130/65 H 100 03/26/19 13:30 75 18 129/70 H 100 03/26/19 13:21 97.3 F L 81 18 111/95 H 94 Medical Necessity - Tobacco Use Smoking Status: Never smoker Tobacco Use: Non-smoker Assessment/Plan All Active Problems (Last Reviewed 01/23/19 @ 11:36 by Sharon Briceno) Preop cardiovascular exam (Acute) 1. Right total knee revision POD#0 - doing well. Care per ortho. Already ambulating. Minimal pain. Compliant with spirometer so far. Received fern op cefazolin and now on PO doxy - as below high infection risk with RA/lupus and associated prednisone and humira. 2. RA/Lupus - prn prednisone - advised pt to use with caution and have close and open dialogue with both her surgeon and senior mechanical engineer when to use this as it raises her infection risk. She also states she is supposed to be off humira for six weeks due to infection risk. She is at high risk of infection with both of these medications. Continue daily plaquenil. 3. Pulmonary HTN, Tricuspid insufficiency, HTN - follows Dr. Garcia. Currently no SOB. Continue IS. Continue Coreg 4. GERD - PPI 5. Fibromyalgia - venlafaxine qhs, gabapentin 6. hypothyroidism - continue synthroid. DVT ppx: per ortho. on asa 81 bid. Thank you for the opportunity to participate in the care of this patient This patient was seen by Buck Multani PA-C under the supervision of Dr. Chong. <Servando Chong - Last Filed: 03/26/19 20:55> Subjective: 72-year-old female with multiple comorbidities including lupus, RA, fibromyalgia, hypertension is admitted after elective right total knee revision by Dr. Pink on 03/26/2019. She denies any chest pain, shortness of breath, respiratory distress. As per the patient, she had some mild staining on the dressing but no major bleeding. Currently ice pack and dressing is intact. Vitals/I&O's: Vital Signs Temp Pulse Resp BP Pulse Ox 98.2 F 79 18 132/74 H 95 03/26/19 20:37 03/26/19 20:37 03/26/19 20:37 03/26/19 20:37 03/26/19 20:37 Oxygen Flow Rate (L/min) 6 Oxygen Delivery Method Room Air Weight: 173 lb 1.006 oz Body Mass Index (BMI) 31.6 Intake and Output for Last 24 Hours 03/24/19 03/25/19 03/26/19 23:59 23:59 23:59 Intake Total 2571.67 / 2571.67 Balance 2571.67 / 2571.67 General: Alert, Oriented x3, Cooperative HEENT: Atraumatic, PERRLA, EOMI, Normocephalic Neck: Supple, No JVD, Negative Carotid Bruits Lungs: Clear to auscultation, Normal air movement, No rhonchi, No wheeze, No rales Cardiovascular: Regular rate, Regular Rhythm, Normal S1, Normal S2, Murmur - 3/6 sytolic murmur best at RSB position 1 Systolic murmur grade 3/6 at left lower sternal border. Abdomen: Bowel Sounds Present, Soft, Non Tender, Non-Distended Extremities: No edema, Capillary Refill Less than 3 Seconds Skin: No rashes, No breakdown Musculoskeletal: No Tenderness to Palpation of Joints or Extremities, Arthritic Changes, - - Right TKR. Neurological: Cranial nerves II-XII grossly intact Psych/Mental Status: Normal Affect, Appropriate Laboratory Results 03/26/19 09:16: POC Glucose 107 Current Medications Acetaminophen (Tylenol) 1,000 mg PO Q8 [facility] Ascorbic Acid (Vitamin C) 500 [facility] Aspirin (Aspirin, Baby) 81 [facility] Last Admin: 03/26/19 16:00 Dose: 81 mg Documented by: Calcium Carbonate (Tums) 1,000 mg PO [facility] Carvedilol (Coreg) 3.125 mg PO BID [facility] Cholecalciferol (Vitamin D) 2,000 unit [facility] Doxycycline Monohydrate (Doxycycline) 100 mg PO BID [facility] Stop: 04/02/19 22:01 Enteral Nutritional Formula (Ensure Surgery) 237 ml PO TIDCM [facility] Last Admin: 03/26/19 17:53 Dose: 237 ml Documented by: Famotidine (Pepcid) 20 mg PO DAILY [facility] Folic Acid (Folic Acid) 1 mg PO DAILY@0800 [facility] Gabapentin (Neurontin) 300 mg PO Q8H [facility] Hydroxychloroquine Sulfate (Plaquenil) [facility] Last Admin: 03/26/19 16:03 Dose: 200 mg Documented by: Lactated Ringer's () 1,000 mls @ 125 mls/hr IV .Q8H [facility] Last Infusion: 03/26/19 18:55 Dose: 125 mls/hr Documented by: Cefazolin Sodium () 1 gm in 50 mls @ 150 mls/hr IV Q8H [facility] Stop: 03/27/19 03:19 Last Infusion: 03/26/19 18:55 Dose: Infused Documented by: Insulin Human Lispro (Humalog Kwikpen (Bkc)) 1 - 6 unit SC Q4H PRN PRN; Protocol PRN Reason: BG>/= 180, SEE PROTOCOL Ketorolac Tromethamine (Toradol) 15 mg IV Q6H PRN PRN PRN Reason: Pain Score 1-5/10 Stop: 03/28/19 07:00 Levothyroxine Sodium (Synthroid) 112 mcg PO DAILY@0600 [facility] Meloxicam (Mobic) 7.5 mg PO BID [facility] Morphine Sulfate () 2 - 4 mg IV Q2H PRN PRN PRN Reason: Pain Score 6-10/10 Morphine Sulfate () 2 - 4 mg IV Q2H PRN PRN PRN Reason: Pain Score 6-10/10 Ondansetron HCl (Zofran) 4 mg IV Q8H PRN PRN PRN Reason: NAUSEA Oxycodone HCl (Oxyir) 5 - 10 mg PO Q4H PRN PRN PRN Reason: Pain Score 4-10/10 Pantoprazole Sodium (Protonix) 40 mg PO DAILY [facility] Last Admin: 03/26/19 15:59 Dose: 40 mg Documented by: Prednisone () 10 mg PO DAILY PRN PRN Reason: flare ups RA Promethazine HCl (Phenergan) 12.5 mg IM Q6H PRN PRN; Protocol PRN Reason: NAUSEA/VOMITING Senna/Docusate Sodium (Senokot-S, Fern-Colace) 2 tablet PO BID [facility] Last Admin: 03/26/19 15:58 Dose: 2 tablet Documented by: Sodium Chloride () 10 - 40 ml IV UD PRN PRN Reason: SALINE FLUSH Venlafaxine HCl (Effexor Xr) 75 mg PO QHS [facility] STROKE Vital Signs/Narrative: Vital Signs Temp Pulse Resp BP Pulse Ox 03/26/19 20:37 98.2 F 79 18 132/74 H 95 03/26/19 18:37 97.8 F 102 H 16 117/72 92 03/26/19 17:18 98 F 100 16 134/74 H 94 Assessment/Plan This patient was seen in conjunction with Buck NIELSEN. I have independently interviewed and examined the patient and reviewed pertinent history, examination findings, laboratory and plan of management. I have reviewed the note and agree with the documented findings with the few additional points. In brief, patient is admitted for elective right total knee revision. As per the patient, mild sternal dressing but no major bleeding. She also has history of tricuspid deficiency hypertension pulmonary hypertension. She had preop stress echo 02/2019 reported as estimated EF 65% a nd normal adequate dobutamine echocardiogram. Negative for ischemia by EKG and echocardiographic criteria. She had echo on 02/06/2019 and reported as the estimated ejection fraction is 65 %.Stage 1 diastolic dysfunction. The right atrium is moderately enlarged. Bubble contrast study negative for right to left interatrial shunt. Trivial mitral valve insufficiency. Mild to moderate (1-2+) tricuspid valve insufficiency.Right ventricular systolic pressure estimated to be 31 mmHg. Compared to echo report dated 12/19/2017, LV Function has remained the same and RVSP has improved from 41 to 31 mm Hg. Home medication reconciliation done. CBC ordered for now. Labs reviewed. Labs ordered for tomorrow morning. I have discussed my assessment with Buck NIELSEN and orders have been reviewed. Code Visit Inpatient E&M: 36363 Init Hosp L2
[2019-03-26] MEDS: Cefazolin 1 GM/50 ML BAG IV (18:35)
[2019-03-26] MEDS: Venlafaxine XR 75 MG Capsule PO (22:09)
[2019-03-26] MEDS: Carvedilol 3.125 MG TABLET PO (22:09)
[2019-03-26] MEDS: Gabapentin 300 MG Capsule PO (22:09)
[2019-03-26] MEDS: Doxycycline 100 MG CAPSULE PO (22:09)
[2019-03-26 22:23] LABS: Absolute Lymphocyte Count 0.83 X10^3/uL (0.83-4.51); Absolute Neutrophil Count 11.1 X10^3/uL (2.0-7.7); Basophil# 0.01 X10^3/uL; Basophil% 0.1 % (0-1); Hematocrit 33.7 % (37-47); Hemoglobin 10.9 g/dL (12.0-15.0); Lymphocyte # 0.83 X10^3/ul (4.0); Lymphocyte % 6.5 % (19-41); Mean Corp Hgb Conc 32.3 g/dL (32-36); Mean Corpuscular Hgb 31.3 pg (27.0-32.0); Mean Corpuscular Volume 96.8 fL (81-99); Mean Platelet Vol. 8.7 fl (6.2-12.0); Monocyte# 0.77 X10^3/uL; NRBC Flagged by Analyzer 0 % (0-5); Neutrophil # 11.09 X10^3/uL (2.7-7.7); Platelet Count 231 K/mm3 (150-450); RBC Distribution Width CV 13.8 % (11.6-14.6); RBC Distribution Width SD 49.1 fl (35.1-43.9); Red Blood Count 3.48 M/mm3 (4.2-5.4); White Blood Count 12.8 K/mm3 (4.4-11.0)
[2019-03-27 02:40] VITALS: BP 122/78; PULSE 76; RESP 16; TEMP 37; O2SAT 96
[2019-03-27] MEDS: Cefazolin 1 GM/50 ML BAG IV (02:41)
[2019-03-27 05:34] LABS: Hematocrit 31.9 % (37-47); Hemoglobin 10.6 g/dL (12.0-15.0); Mean Corp Hgb Conc 33.2 g/dL (32-36); Mean Corpuscular Hgb 31.5 pg (27.0-32.0); Mean Corpuscular Volume 94.9 fL (81-99); Mean Platelet Vol. 8.8 fl (6.2-12.0); Platelet Count 200 K/mm3 (150-450); Red Blood Count 3.36 M/mm3 (4.2-5.4); White Blood Count 11.9 K/mm3 (4.4-11.0)
[2019-03-27] MEDS: Acetaminophen 500 MG Tablet 1000 MG PO ×3 (05:53→21:15)
[2019-03-27] MEDS: oxyCODONE 5 MG Tablet PO ×2 (05:53→19:06)
[2019-03-27] MEDS: Gabapentin 300 MG Capsule PO ×3 (05:53→21:15)
[2019-03-27] MEDS: Levothyroxine 112 MCG Tablet PO (05:53)
[2019-03-27 06:15] LABS: Anion Gap 5 (5-15); BUN 24 mg/dL (7-18); BUN/Creat Ratio 29.9 RATIO (10-20); Calcium,Total 8.1 mg/dL (8.5-10.1); Chloride 108 mmol/L (98-107); EST Glomerular Filtration Rate 75 mL/min (>60); Est Glom Filt Rate - Afr Amer 91 mL/min (>60); Estimated Creatinine Clearance 51.01 ml/min; Glucose 99 mg/dL (74-106); Potassium 4.7 mmol/L (3.5-5.1); Sodium Level 138 mmol/L (136-145)
--- NOTE | 2019-03-27 08:02 | PCM.PN.HOSP ---
Reason for Visit: Follow-up right total knee revision Subjective: Patient is a 73-year-old lady who underwent right total knee revision on 03/26/2019. Hospitalist service consulted for management of patient medical comorbidities Objective: GENERAL: cooperative HEENT: Atraumatic; EYES; Anicteric, Normal Conjunctiva NECK; supple, normal thyroid, RESPIRATORY: Diminished to auscultation CARDIOVASCULAR: Regular S1 S2, GI: soft, normoactive bowel sounds, : No Renal angle tenderness; EXTREMITIES: No edema, no clubbing, MUSCULOSKELETAL: Right knee in surgical dressing NEURO: Awake; no lateralizing signs. SKIN: No Rash PSYCH; Flat affect Vitals/I&O's: Vital Signs Temp Pulse Resp BP Pulse Ox 98.6 F 76 16 122/78 H 96 03/27/19 02:40 03/27/19 02:40 03/27/19 02:40 03/27/19 02:40 03/27/19 02:40 Oxygen Flow Rate (L/min) 6 Oxygen Delivery Method Room Air Weight: 78.5 kg Body Mass Index (BMI) 31.6 Intake and Output for Last 24 Hours 03/25/19 03/26/19 03/27/19 23:59 23:59 23:59 Intake Total 2780.00 / 2780.00 614.58 / 614.58 Output Total 400 / 400 Balance 2780.00 / 2780.00 214.58 / 214.58 Laboratory Results 03/26/19 09:16: POC Glucose 107 03/26/19 22:15: WBC 12.8 H, RBC 3.48 L, Hgb 10.9 L, Hct 33.7 L, MCV 96.8, MCH 31.3, MCHC 32.3, RDW Std Deviation 49.1 H, RDW Coeff of Cody 13.8, Plt Count 231, MPV 8.7, Immature Gran % (Auto) 0.400, Neut % (Auto) 87.0 H, Lymph % (Auto) 6.5 L, [place] % (Auto) 6.0, Eos % (Auto) 0.0, Baso % (Auto) 0.1, Absolute Neuts (auto) 11.1 H, Absolute Lymphs (auto) 0.83, Nucleated RBC % 0 03/27/19 05:24: WBC 11.9 H, RBC 3.36 L, Hgb 10.6 L, Hct 31.9 L, MCV 94.9, MCH 31.5, MCHC 33.2, RDW Std Deviation 48.0 H, RDW Coeff of Cody 14.0, Plt Count 200, MPV 8.8 03/27/19 05:24: Sodium 138, Potassium 4.7, Chloride 108 H, Carbon Dioxide 25.0, Anion Gap 5, BUN 24 H, Creatinine 0.80, Estim Creat Clear Calc 51.01, Est GFR (MDRD) Af Amer 91, Est GFR (MDRD) Non-Af 75, BUN/Creatinine Ratio 29.9 H, Glucose 99, Calcium 8.1 L Current Medications Acetaminophen (Tylenol) 1,000 mg PO Q8 [facility] Last Admin: 03/27/19 05:53 Dose: 1,000 mg Documented by: Ascorbic [facility]itamin C) [facility] Aspirin (Aspirin, Baby) [facility] Last Admin: 03/26/19 16:00 Dose: 81 mg Documented by: Calcium Carbonate (Tums) 1,[facility] Carvedilol (Coreg) 3.125 mg PO BID [facility] Last Admin: 03/26/19 22:09 Dose: 3.125 mg Documented by: Cholecalciferol (Vitamin D) 2,000 [facility] Doxycycline Monohydrate (Doxycycline) 100 mg PO BID [facility] Stop: 04/02/19 22:01 Last Admin: 03/26/19 22:09 Dose: 100 mg Documented by: Enteral Nutritional Formula (Ensure Surgery) 237 ml PO TIDCM [facility] Last Admin: 03/26/19 17:53 Dose: 237 ml Documented by: Famotidine (Pepcid) 20 mg PO DAILY [facility] Folic Acid (Folic Acid) 1 mg PO DAILY@0800 [facility] Gabapentin (Neurontin) 300 mg PO Q8H [facility] Last Admin: 03/27/19 05:53 Dose: 300 mg Documented by: Hydroxychloroquine Sulfate ([facility]aquenil) [facility] Last Admin: 03/26/19 16:03 Dose: 200 mg Documented by: Insulin Human Lispro (Humalog Kwikpen (Bkc)) 1 - 6 unit SC Q4H PRN PRN; Protocol PRN Reason: BG>/= 180, SEE PROTOCOL Ketorolac Tromethamine (Toradol) 15 mg IV Q6H PRN PRN PRN Reason: Pain Score 1-5/10 Stop: 03/28/19 07:00 Levothyroxine Sodium (Synthroid) 112 mcg PO DAILY@0600 [facility] Last Admin: 03/27/19 05:53 Dose: 112 mcg Documented by: Meloxicam (Mobic) 7.5 mg PO BID [facility] Morphine Sulfate () 2 - 4 mg IV Q2H PRN PRN PRN Reason: Pain Score 6-10/10 Morphine Sulfate () 2 - 4 mg IV Q2H PRN PRN PRN Reason: Pain Score 6-10/10 Ondansetron HCl (Zofran) 4 mg IV Q8H PRN PRN PRN Reason: NAUSEA Oxycodone HCl (Oxyir) 5 - 10 mg PO Q4H PRN PRN PRN Reason: Pain Score 4-10/10 Last Admin: 03/27/19 05:53 Dose: 5 mg Documented by: Pantoprazole Sodium (Protonix) 40 mg PO DAILY [facility] Last Admin: 03/26/19 15:59 Dose: 40 mg Documented by: Prednisone () 10 mg PO DAILY PRN PRN Reason: flare ups RA Promethazine HCl (Phenergan) 12.5 mg IM Q6H PRN PRN; Protocol PRN Reason: NAUSEA/VOMITING Senna/Docusate Sodium (Senokot-S, Fern-Colace) 2 tablet PO BID [facility] Last Admin: 03/26/19 22:09 Dose: 2 tablet Documented by: Sodium Chloride () 10 - 40 ml IV UD PRN PRN Reason: SALINE FLUSH Venlafaxine HCl (Effexor Xr) 75 mg PO QHS [facility] Last Admin: 03/26/19 22:09 Dose: 75 mg Documented by: Medical Necessity - Tobacco Use Smoking Status: Never smoker Tobacco Use: Non-smoker Assessment/Plan All Active Problems (Last Reviewed 01/23/19 @ 11:36 by Sharon Briceno) Preop cardiovascular exam (Acute) Patient is a 73-year-old lady who underwent right total knee revision on 03/26/2019. Hospitalist service consulted for management of patient medical comorbidities 1. 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 Rheumatoid arthritis ~Patient was on Humira which has been of for the surgery 3. Systemic lupus ~patient is on Plaquenil continued 4. Pulmonary hypertension ?Patient did not present with shortness of breath is apparently followed by cardiology as outpatient 5. GERD ~Patient is on PPI 6. Hypothyroidism ~patient is on levothyroxine home dose continued 7. Fibromyalgia ~patient is on SNRI as well as gabapentin 8. DVT prophylaxis As addressed by orthopedic service?aspirin 81 mg p.o. twice daily Active Medications Acetaminophen (Tylenol) 1,000 mg PO Q8 [facility] Last Admin: 03/27/19 05:53 Dose: 1,000 mg Documented by: Ascorbic Acid (Vitamin C) [facility] Aspirin (Aspirin, Baby) [facility] Last Admin: 03/26/19 16:00 Dose: 81 mg Documented by: Calcium Carbonate (Tums) 1,000 [facility] Carvedilol (Coreg) 3.125 mg PO BID [facility] Last Admin: 03/26/19 22:09 Dose: 3.125 mg Documented by: Cholecalciferol (Vitamin D) 2,000 [facility] Doxycycline Monohydrate (Doxycycline) 100 mg PO BID [facility] Stop: 04/02/19 22:01 Last Admin: 03/26/19 22:09 Dose: 100 mg Documented by: Enteral Nutritional Formula (Ensure Surgery) 237 ml PO TIDCM [facility] Last Admin: 03/26/19 17:53 Dose: 237 ml Documented by: Famotidine (Pepcid) 20 mg PO DAILY [facility] Folic Acid (Folic Acid) 1 mg PO DAILY@0800 [facility] Gabapentin (Neurontin) 300 mg PO Q8H [facility] Last Admin: 03/27/19 05:53 Dose: 300 mg Documented by: Hydroxychloroquine Sulfate (Plaquenil) [facility] Last Admin: 03/26/19 16:03 Dose: 200 mg Documented by: Insulin Human Lispro (Humalog Kwikpen (Bkc)) 1 - 6 unit SC Q4H PRN PRN; Protocol PRN Reason: BG>/= 180, SEE PROTOCOL Ketorolac Tromethamine (Toradol) 15 mg IV Q6H PRN PRN PRN Reason: Pain Score 1-5/10 Stop: 03/28/19 07:00 Levothyroxine Sodium (Synthroid) 112 mcg PO DAILY@0600 [facility] Last Admin: 03/27/19 05:53 Dose: 112 mcg Documented by: Meloxicam (Mobic) 7.5 mg PO BID [facility] Morphine Sulfate () 2 - 4 mg IV Q2H PRN PRN PRN Reason: Pain Score 6-10/10 Morphine Sulfate () 2 - 4 mg IV Q2H PRN PRN PRN Reason: Pain Score 6-10/10 Ondansetron HCl (Zofran) 4 mg IV Q8H PRN PRN PRN Reason: NAUSEA Oxycodone HCl (Oxyir) 5 - 10 mg PO Q4H PRN PRN PRN Reason: Pain Score 4-10/10 Last Admin: 03/27/19 05:53 Dose: 5 mg Documented by: Pantoprazole Sodium (Protonix) 40 mg PO DAILY [facility] Last Admin: 03/26/19 15:59 Dose: 40 mg Documented by: Prednisone () 10 mg PO DAILY PRN PRN Reason: flare ups RA Promethazine HCl (Phenergan) 12.5 mg IM Q6H PRN PRN; Protocol PRN Reason: NAUSEA/VOMITING Senna/Docusate Sodium (Senokot-S, Fern-Colace) 2 tablet PO BID [facility] Last Admin: 03/26/19 22:09 Dose: 2 tablet Documented by: Sodium Chloride () 10 - 40 ml IV UD PRN PRN Reason: SALINE FLUSH Venlafaxine HCl (Effexor Xr) 75 mg PO QHS [facility] Last Admin: 03/26/19 22:09 Dose: 75 mg Documented by: Code Visit Inpatient E&M: 24188 Subs Hosp L2
[2019-03-27 08:03] VITALS: BP 153/83; PULSE 80; RESP 18; TEMP 36.9; O2SAT 96
[2019-03-27] MEDS: Folic Acid 1 MG Tablet PO (08:09)
[2019-03-27] MEDS: Carvedilol 3.125 MG TABLET PO ×2 (08:10→21:16)
[2019-03-27] MEDS: Hydroxychloroquine 200 MG Tablet PO ×2 (08:10→16:55)
[2019-03-27] MEDS: Calcium Carbonate 500 MG Tablet 1000 MG PO (08:10)
[2019-03-27] MEDS: Famotidine 20 MG Tablet PO (08:10)
[2019-03-27] MEDS: Aspirin 81 MG TAB.CHEW PO ×2 (08:11→16:55)
[2019-03-27] MEDS: Senna/Docusate Sodium 1 Tablet 2 TABLET PO ×2 (08:11→21:15)
[2019-03-27] MEDS: Pantoprazole Sodium 40 MG Tablet PO (08:12)
[2019-03-27] MEDS: Ascorbic Acid 500 MG Tablet PO (08:12)
--- NOTE | 2019-03-27 09:23 | PN.ORTHO_ITS ---
Subjective: The patient was sitting in bed upon examination. Patient denies any chest pain, shortness of breath, dizziness, lightheadedness, nausea or vomiting, or calf pain. Pain is controlled on medications. No adverse overnight events. Overall patient is doing well but has had drainage over the middle one third of the dressing. Patient has been up with physical therapy already. Objective: Vital signs stable and afebrile. Patient is able to plantarflex and dorsiflex actively. Sensation is intact to light touch to saphenous, sural, superficial and deep peroneal, and tibial distribution. Dressing is saturation over the middle one third contacting both borders and Mepilex dressing not intact to skin. Dressing was removed and patient does have some drainage between opal over the middle one third. Compressive dressing involving ABDs and Andrea wrap was placed. We will continue with this over the next 24 hours. Plan will be for placement of Mepilex dressing prior to discharge tomorrow. Negative Homans bilaterally, negative signs and symptoms of DVT. - Physical Exam Vitals/I&O's: Vital Signs Temp Pulse Resp BP Pulse Ox 98.4 F 80 18 153/83 H 96 03/27/19 08:03 03/27/19 08:03 03/27/19 08:03 03/27/19 08:03 03/27/19 08:03 Oxygen Flow Rate (L/min) 6 Oxygen Delivery Method Room Air Weight: 78.5 kg Body Mass Index (BMI) 31.6 Intake and Output for Last 24 Hours 03/25/19 03/26/19 03/27/19 23:59 23:59 23:59 Intake Total 2780.00 / 2780.00 614.58 / 614.58 Output Total 400 / 400 Balance 2780.00 / 2780.00 214.58 / 214.58 General: Alert, Oriented x3, Cooperative, No apparent distress Laboratory Results 03/26/19 22:15: WBC 12.8 H, RBC 3.48 L, Hgb 10.9 L, Hct 33.7 L, MCV 96.8, MCH 31.3, MCHC 32.3, RDW Std Deviation 49.1 H, RDW Coeff of Cody 13.8, Plt Count 231, MPV 8.7, Immature Gran % (Auto) 0.400, Neut % (Auto) 87.0 H, Lymph % (Auto) 6.5 L, [place] % (Auto) 6.0, Eos % (Auto) 0.0, Baso % (Auto) 0.1, Absolute Neuts (auto) 11.1 H, Absolute Lymphs (auto) 0.83, Nucleated RBC % 0 03/27/19 05:24: WBC 11.9 H, RBC 3.36 L, Hgb 10.6 L, Hct 31.9 L, MCV 94.9, MCH 31.5, MCHC 33.2, RDW Std Deviation 48.0 H, RDW Coeff of Cody 14.0, Plt Count 200, MPV 8.8 03/27/19 05:24: Sodium 138, Potassium 4.7, Chloride 108 H, Carbon Dioxide 25.0, Anion Gap 5, BUN 24 H, Creatinine 0.80, Estim Creat Clear Calc 51.01, Est GFR (MDRD) Af Amer 91, Est GFR (MDRD) Non-Af 75, BUN/Creatinine Ratio 29.9 H, Glucose 99, Calcium 8.1 L Current Medications Acetaminophen (Tylenol) 1,000 mg PO Q8 [facility] Last Admin: 03/27/19 05:53 Dose: 1,000 mg Documented by: Ascorbic Acid (Vitamin C) [facility] Last Admin: 03/27/19 08:12 Dose: 500 mg Documented by: Aspirin ([facility]in, Baby) [facility] Last Admin: 03/27/19 08:11 Dose: 81 mg Documented by: Calcium Carbonate (Tums) 1,[facility] Last Admin: 03/27/19 08:10 Dose: 1,000 mg Documented by: Carvedilol (Coreg) 3.125 mg PO BID [facility] Last Admin: 03/27/19 08:10 Dose: 3.125 mg Documented by: Cholecalciferol (Vitamin D) 2,[facility] Last Admin: 03/27/19 08:10 Dose: 2,000 unit Documented by: Doxycycline Monohydrate (Doxycycline) 100 mg PO BID [facility] Stop: 04/02/19 22:01 Last Admin: 03/26/19 22:09 Dose: 100 mg Documented by: Enteral Nutritional Formula (Ensure Surgery) 237 ml PO TIDCM [facility] Last Admin: 03/26/19 17:53 Dose: 237 ml Documented by: Famotidine (Pepcid) 20 mg PO DAILY [facility] Last Admin: 03/27/19 08:10 Dose: 20 mg Documented by: Folic Acid (Folic Acid) 1 mg PO DAILY@0800 [facility] Last Admin: 03/27/19 08:09 Dose: 1 mg Documented by: Gabapentin (Neurontin) 300 mg PO Q8H [facility] Last Admin: 03/27/19 05:53 Dose: 300 mg Documented by: Hydroxychloroquine [facility] ([facility]aquenil) [facility] Last Admin: 03/27/19 08:10 Dose: 200 mg Documented by: Insulin Human Lispro (Humalog Kwikpen (Bkc)) 1 - 6 unit SC Q4H PRN PRN; Protocol PRN Reason: BG>/= 180, SEE PROTOCOL Ketorolac Tromethamine (Toradol) 15 mg IV Q6H PRN PRN PRN Reason: Pain Score 1-5/10 Stop: 03/28/19 07:00 Levothyroxine Sodium (Synthroid) 112 mcg PO DAILY@0600 [facility] Last Admin: 03/27/19 05:53 Dose: 112 mcg Documented by: Meloxicam (Mobic) 7.5 mg PO BID [facility] Morphine Sulfate () 2 - 4 mg IV Q2H PRN PRN PRN Reason: Pain Score 6-10/10 Morphine Sulfate () 2 - 4 mg IV Q2H PRN PRN PRN Reason: Pain Score 6-10/10 Ondansetron HCl (Zofran) 4 mg IV Q8H PRN PRN PRN Reason: NAUSEA Oxycodone HCl (Oxyir) 5 - 10 mg PO Q4H PRN PRN PRN Reason: Pain Score 4-10/10 Last Admin: 03/27/19 05:53 Dose: 5 mg Documented by: Pantoprazole Sodium (Protonix) 40 mg PO DAILY [facility] Last Admin: 03/27/19 08:12 Dose: 40 mg Documented by: Prednisone () 10 mg PO DAILY PRN PRN Reason: flare ups RA Promethazine HCl (Phenergan) 12.5 mg IM Q6H PRN PRN; Protocol PRN Reason: NAUSEA/VOMITING Senna/Docusate Sodium (Senokot-S, Fern-Colace) 2 tablet PO BID [facility] Last Admin: 03/27/19 08:11 Dose: 2 tablet Documented by: Sodium Chloride () 10 - 40 ml IV UD PRN PRN Reason: SALINE FLUSH Venlafaxine HCl (Effexor Xr) 75 mg PO QHS [facility] Last Admin: 03/26/19 22:09 Dose: 75 mg Documented by: Medical Necessity - Tobacco Use Smoking Status: Never smoker Tobacco Use: Non-smoker Assessment/Plan All Active Problems (Last Reviewed 01/23/19 @ 11:36 by Sharon Briceno) Preop cardiovascular exam (Acute) 1. S/P revision right total knee arthroplasty POD #1 2. Continue Pain Medications: Tylenol and oxycodone 3. DVT Prophylaxis: Aspirin 81 mg twice daily for DVT prophylaxis for 4 weeks postoperatively 4. PT/OT: Weightbearing as tolerated with walker 5. H & H: 10.6/31.9, asymptomatic 6. Reactive leukocytosis: Currently 11.9, afebrile. Patient did receive Decadron intraoperatively 7. Continue postoperative medical management per medicine: Appreciate consult and input for postoperative care 8. Continue antibiotics while following cultures: Patient is currently on doxycycline 1 week postoperatively. Cultures are pending 9. Encouraged Incentive Spirometry 10. Postoperative drainage right knee: Patient has had drainage from the knee and the Mepilex dressing needed to be removed. Compressive dressing was placed and patient will require additional stay due to the drainage. Plan will be for Mepilex Ag placement tomorrow prior to discharge. Okay to continue with formal physical therapy unless we get increased drainage. 11. Disposition: Plan will be for discharge home with home health possibly to [facility]. Case management involved with setting up home health physical therapy.
--- NOTE | 2019-03-27 09:29 | PCM.DC.TKR ---
Discharge Diet: No Restrictions Discharge Activity: May Not Drive May shower in (days): 1 - Dressing must be intact to skin, turn dressing away from water Ice area for (Minutes): 20 - every hour while awake. Weight Bearing Status: Weight bearing as tolerated Elevate: Operative Extremity Additional Activity Instructions:: Wear elastic stockings for 2 weeks after your surgery. Call your doctor if your incision/area has: Continuous Slow Oozing, Sudden Increased Bleeding, Increased Pain/ Swelling, Increased Redness, Foul Smelling Discharge Call your doctor if you observe: Fever of 101 or Higher, Coldness, Increased Pain, Numbness or Tingling, Change in Color, Calf discomfort, Uncontrolled pain Remove Dressing in (days):: 4 - Okay to remove dressing on April 01, 2019 Additional Instructions: Follow orthopedic postop instructions Do not take tizanidine and famotidine together. This was discussed at the hospital and you will hold off of the tizanidine while using the famotidine over the next 30 days due to the potential side effect of mixing these 2 medications together. Allergies/Adverse Reactions: Allergies Penicillins [PCN] Allergy (Verified 03/26/19 09:27) Rash Medications to take at Discharge ascorbic acid (vitamin C) 500 mg capsule 500 mg PO QDAY ea 04/14/17 calcium carbonate 600 mg calcium (1,500 mg) tablet 1,200 mg PO QDAY tab 04/14/17 gabapentin 300 mg capsule 300 mg PO Q8H 30 Days #90 cap 04/14/17 multivitamin,[id number] 1 tab PO QDAY 04/14/17 potassium gluconate 595 mg (99 mg) tablet 595 mg PO QDAY tab 04/14/17 selenium 200 mcg capsule 200 mcg PO QDAY 04/14/17 pantoprazole 40 mg tablet,delayed release 40 mg PO DAILY 12/07/17 venlafaxine 75 mg capsule,extended release 24 hr 75 mg PO QHS 12/07/17 prednisone 10 mg tablet 10 mg PO DAILY PRN 30 Days tab 03/04/18 cholecalciferol (vitamin D3) 2,000 unit tablet 2,000 unit PO DAILY 01/23/19 folic acid 800 mcg tablet 800 mcg PO DAILY 01/23/19 food supplemt, lactose-reduced 1 ea PO DAILY ml 01/23/19 hydroxychloroquine 200 mg tablet 200 mg PO BID 01/23/19 levothyroxine 112 mcg tablet 112 mcg PO DAILY 01/23/19 magnesium 200 mg tablet 600 mg PO DAILY tab 01/23/19 mecobalamin (vitamin B12) 1,000 mcg disintegrating tablet,sublingual 1,000 mcg SUBLINGUAL DAILY 01/23/19 Carvedilol 3.125 mg PO BID 03/12/19 Acetaminophen [Tylenol] 1,000 mg PO Q8 #100 tab 03/28/19 Aspirin [Aspirin, Baby] 81 mg PO BIDCM #60 tab 03/28/19 Doxycycline 100 mg PO BID #10 cap 03/28/19 Famotidine [Pepcid] 20 mg PO DAILY #28 tab 03/28/19 Meloxicam [Mobic] 7.5 mg PO BID #60 tab 03/28/19 Oxycodone [Oxyir] 5 - 10 mg PO Q4H PRN PRN 5 Days #60 tablet 03/28/19 Senna/Docusate Sodium [Senokot-S] 2 tab PO BID #10 tab 03/28/19 The following prescriptions were given: Aspirin [Aspirin, Baby] 81 mg PO BIDCM #60 tab Transmission Status: Pending to [facility] Doxycycline 100 mg PO BID #10 cap Transmission Status: Pending to [facility] Meloxicam [Mobic] 7.5 mg PO BID #60 tab Transmission Status: Pending to [facility] Oxycodone [Oxyir] 5 - 10 mg PO Q4H PRN PRN 5 Days #60 tablet PRN Reason: Pain Score 4-10/10 Transmission Status: Sent to [facility] Famotidine [Pepcid] 20 mg PO DAILY #28 tab Transmission Status: Pending to [facility] Senna/Docusate Sodium [Senokot-S] 2 tab PO BID #10 tab Transmission Status: Pending to [facility] Acetaminophen [Tylenol] 1,000 mg PO Q8 #100 tab Transmission Status: Pending to [facility] Primary Care Physician: Stalin Wang MD [Primary Care Provider] - Test Results: Test results from this visit will be discussed in further detail at your follow-up appointment, if applicable. Please Follow Up With: Home Health Physical Therapy Please Follow Up With: Bay Luz PA-C When: 04/10/19 @ 2:00 pm
--- NOTE | 2019-03-27 09:45 | CASEMGMT ---
RN CHERIE Face to Face with patient for initial transition planning/care coordination assessment. RN CHERIE introduced self and role at [facility]. Patient sitting in chair, alert and oriented. Patient willing to participate in assessment and is able to answer all questions appropriately. Care providers, pharmacy, and demographics verified. Patient wishes to discharge home and would like HH therapy with [facility]. Patient states she has no further needs or concerns at this time. CM to follow for discharge planning needs that may arise. PCP: Kathleen Specialists: Papi Mcgill Pharmacy: [facility] retail Insurance: [employer] Prescription Benefit: yes Living Will/HPOA: None LNOK: daughter Living Arrangements: Patient lives alone in split level home. 6 steps with railing to enter the home. Transportation: [facility]/family DME/HHC: Patient has shower chair, raised toilet, cane, grab bars, walker. Patient want [facility]. Disposition Plan: Patient to discharge with HH therapy, family support, and follow-up plans in place. Mariana SANTILLAN, RN, CM
[2019-03-27] MEDS: Doxycycline 100 MG CAPSULE PO ×2 (10:37→21:16)
[2019-03-27 10:38] VITALS: PULSE 100
--- NOTE | 2019-03-27 13:12 | CHAPLAIN ---
Type of Pastoral Visit _x__ Initial Visit ___ Follow-up Visit ___ On-call Visit ___ General Patient Visit ___ Spiritual Assessment ___ Family Conference ___ Bereavement ___ Rapid Response ___ Code Blue ___ Other (describe below) Pastoral Care Referral From _x__ Patient ___ Family ___ Nurse ___ Physician ___ Sales And Marketing Manager ___ Bitumastic Applier ___ Other (describe below) Sacrament/Intervention _x__ Active listening ___ Anointing ___ Baptist ___ Bereavement ___ Communion ___ [place] exploration ___ _x__ Life review _x__ Prayer ___ Reconciliation ___ Sacrament of Sick _x__ Supportive presence ___ Wedding ___ Other (describe below) Pastoral Comments patient talked much about losing her in early 2018 and how she is doing since
[2019-03-27 13:46] VITALS: BP 133/87; PULSE 79; RESP 18; TEMP 37.2; O2SAT 98
[2019-03-27 15:00] VITALS: PULSE 90
[2019-03-27 21:11] VITALS: BP 152/78; PULSE 88; RESP 18; TEMP 37.2; O2SAT 98
[2019-03-27] MEDS: Meloxicam 7.5 MG Tablet PO (21:15)
[2019-03-27] MEDS: Venlafaxine XR 75 MG Capsule PO (21:16)
[2019-03-27] MEDS: 0.9% Saline Lock 10 ML Syringe IV (21:29)
[2019-03-28 04:46] VITALS: BP 134/83; PULSE 80; RESP 16; TEMP 36.8; O2SAT 95
[2019-03-28] MEDS: oxyCODONE 5 MG Tablet PO (04:50)
[2019-03-28 05:47] LABS: Hematocrit 34.1 % (37-47); Hemoglobin 11.2 g/dL (12.0-15.0); Mean Corp Hgb Conc 32.8 g/dL (32-36); Mean Corpuscular Hgb 31.6 pg (27.0-32.0); Mean Corpuscular Volume 96.3 fL (81-99); Platelet Count 196 K/mm3 (150-450); RBC Distribution Width CV 13.9 % (11.6-14.6); RBC Distribution Width SD 49.4 fl (35.1-43.9); Red Blood Count 3.54 M/mm3 (4.2-5.4); White Blood Count 11.1 K/mm3 (4.4-11.0)
[2019-03-28] MEDS: Levothyroxine 112 MCG Tablet PO (06:17)
[2019-03-28] MEDS: Gabapentin 300 MG Capsule PO (06:17)
[2019-03-28] MEDS: Acetaminophen 500 MG Tablet 1000 MG PO (06:17)
--- NOTE | 2019-03-28 07:06 | PN.ORTHO_ITS ---
Subjective: The patient was sitting in bed upon examination. Patient denies any chest pain, shortness of breath, dizziness, lightheadedness, nausea or vomiting, or calf pain. Pain is controlled on medications. No adverse overnight events. Overall patient has done well since yesterday. There is been no breakthrough bleeding from the drainage. Patient has tolerated physical therapy. She is ready for discharge home. Objective: Vital signs stable and afebrile. Patient is able to plantarflex and dorsiflex actively. Sensation is intact to light touch to saphenous, sural, superficial and deep peroneal, and tibial distribution. Compressive dressing was without any breakthrough bleeding. This was removed and there was no active drainage from the incision. A new Mepilex dressing was placed. Negative Homans bilaterally, negative signs and symptoms of DVT. - Physical Exam Vitals/I&O's: Vital Signs Temp Pulse Resp BP Pulse Ox 98.2 F 80 16 134/83 H 95 03/28/19 04:46 03/28/19 04:46 03/28/19 04:46 03/28/19 04:46 03/28/19 04:46 Oxygen Flow Rate (L/min) 6 Oxygen Delivery Method Room Air Weight: 78.5 kg Body Mass Index (BMI) 31.6 Intake and Output for Last 24 Hours 03/26/19 03/27/19 03/28/19 23:59 23:59 23:59 Intake Total 2780.00 / 2780.00 914.58 / 914.58 200 / 200 Output Total 400 / 400 Balance 2780.00 / 2780.00 514.58 / 514.58 200 / 200 General: Alert, Oriented x3, Cooperative, No apparent distress Microbiology Past 72 Hours 03/26/19 11:00 Tissue - Other Gram Stain - Final 03/26/19 11:00 Tissue - Other Wound Culture - Preliminary No growth-Final to follow 03/26/19 11:00 Tissue - Other Gram Stain - Final 03/26/19 11:00 Tissue - Other Wound Culture - Preliminary No growth-Final to follow 03/26/19 11:00 Tissue - Other Gram Stain - Final 03/26/19 11:00 Tissue - Other Wound Culture - Preliminary No growth-Final to follow Laboratory Results 03/28/19 05:22: WBC 11.1 H, RBC 3.54 L, Hgb 11.2 L, Hct 34.1 L, MCV 96.3, MCH 31.6, MCHC 32.8, RDW Std Deviation 49.4 H, RDW Coeff of Cody 13.9, Plt Count 196, MPV 9.0 Current Medications Acetaminophen (Tylenol) 1,000 mg PO Q8 [facility] Last Admin: 03/28/19 06:17 Dose: 1,000 mg Documented by: [facility] Admin: 03/27/19 08:12 Dose: 500 mg Documented by: Aspirin ([facility]in, Baby) [facility] Last Admin: 03/27/19 16:55 Dose: 81 mg Documented by: Calcium Carbonate (Tums) [facility] Last Admin: 03/27/19 08:10 Dose: 1,000 mg Documented by: Carvedilol (Coreg) 3.125 mg PO BID [facility] Last Admin: 03/27/19 21:16 Dose: 3.125 mg Documented by: Cholecalciferol ([facility]itamin D) [facility] Last Admin: 03/27/19 08:10 Dose: 2,000 unit Documented by: Doxycycline Monohydrate (Doxycycline) 100 mg PO BID [facility] Stop: 04/02/19 22:01 Last Admin: 03/27/19 21:16 Dose: 100 mg Documented by: Enteral Nutritional Formula (Ensure Surgery) 237 ml PO TIDCM [facility] Last Admin: 03/27/19 16:54 Dose: Not Given Documented by: Famotidine (Pepcid) 20 mg PO DAILY [facility] Last Admin: 03/27/19 08:10 Dose: 20 mg Documented by: Folic Acid (Folic Acid) 1 mg PO DAILY@0800 [facility] Last Admin: 03/27/19 08:09 Dose: 1 mg Documented by: Gabapentin (Neurontin) 300 mg PO Q8H [facility] Last Admin: 03/28/19 06:17 Dose: 300 mg Documented by: Hydroxychloroquine [facility] ([facility]il) [facility] Last Admin: 03/27/19 16:55 Dose: 200 mg Documented by: Insulin Human Lispro (Humalog Kwikpen (Bkc)) 1 - 6 unit SC Q4H PRN PRN; Protocol PRN Reason: BG>/= 180, SEE PROTOCOL Levothyroxine Sodium (Synthroid) 112 mcg PO DAILY@0600 [facility] Last Admin: 03/28/19 06:17 Dose: 112 mcg Documented by: Meloxicam (Mobic) 7.5 mg PO BID [facility] Last Admin: 03/27/19 21:15 Dose: 7.5 mg Documented by: Morphine Sulfate () 2 - 4 mg IV Q2H PRN PRN PRN Reason: Pain Score 6-10/10 Morphine Sulfate () 2 - 4 mg IV Q2H PRN PRN PRN Reason: Pain Score 6-10/10 Ondansetron HCl (Zofran) 4 mg IV Q8H PRN PRN PRN Reason: NAUSEA Oxycodone HCl (Oxyir) 5 - 10 mg PO Q4H PRN PRN PRN Reason: Pain Score 4-10/10 Last Admin: 03/28/19 04:50 Dose: 5 mg Documented by: Pantoprazole Sodium (Protonix) 40 mg PO DAILY [facility] Last Admin: 03/27/19 08:12 Dose: 40 mg Documented by: Prednisone () 10 mg PO DAILY PRN PRN Reason: flare ups RA Promethazine HCl (Phenergan) 12.5 mg IM Q6H PRN PRN; Protocol PRN Reason: NAUSEA/VOMITING Senna/Docusate Sodium (Senokot-S, Fern-Colace) 2 tablet PO BID [facility] Last Admin: 03/27/19 21:15 Dose: 2 tablet Documented by: Sodium Chloride () 10 - 40 ml IV UD PRN PRN Reason: SALINE FLUSH Last Admin: 03/27/19 21:29 Dose: 10 ml Documented by: Venlafaxine HCl (Effexor Xr) 75 mg PO QHS [facility] Last Admin: 03/27/19 21:16 Dose: 75 mg Documented by: Medical Necessity - Tobacco Use Smoking Status: Never smoker Tobacco Use: Non-smoker Assessment/Plan All Active Problems (Last Reviewed 01/23/19 @ 11:36 by Sharon Briceno) Preop cardiovascular exam (Acute) 1. S/P revision right total knee arthroplasty POD #2 2. Continue Pain Medications: Tylenol and oxycodone 3. DVT Prophylaxis: Aspirin 81 mg twice daily for DVT prophylaxis for 4 weeks postoperatively 4. PT/OT: Weightbearing as tolerated with walker 5. H & H: 11.2/34.1, asymptomatic 6. Reactive leukocytosis: Currently 11.1 trending down, afebrile. Patient did receive Decadron intraoperatively 7. Continue postoperative medical management per medicine: Appreciate consult and input for postoperative care 8. Continue antibiotics while following cultures: Patient is currently on doxycycline 1 week postoperatively. Cultures are pending 9. Encouraged Incentive Spirometry 10. Postoperative drainage right knee: There is been no breakthrough bleeding and no active drainage upon removal of the dressing. A new Mepilex dressing was placed. 11. Disposition: Patient is doing well and orthopedically stable. She will get physical therapy this morning and from orthopedic standpoint okay for discharge this afternoon. If patient is medically stable patient can be discharged today. Prescriptions will be E scribed to [facility]. Patient will follow-up per postop instructions. Patient has been set up with home health physical therapy. I have reviewed the [place] Automated Rx Reporting System ([place]ARRS) report for this patient for refill pattern and other prescriber involvement as part of the appropriate surveillance for the provision of acute and chronic controlled medications. The report was requested and reviewed on the date of this entry and was considered in the prescribing process.
[2019-03-28] MEDS: Folic Acid 1 MG Tablet PO (07:38)
[2019-03-28] MEDS: Calcium Carbonate 500 MG Tablet 1000 MG PO (07:38)
[2019-03-28] MEDS: Ascorbic Acid 500 MG Tablet PO (07:38)
[2019-03-28] MEDS: Aspirin 81 MG TAB.CHEW PO (07:38)
[2019-03-28] MEDS: Hydroxychloroquine 200 MG Tablet PO (07:38)
[2019-03-28] MEDS: Carvedilol 3.125 MG TABLET PO (07:39)
[2019-03-28] MEDS: Pantoprazole Sodium 40 MG Tablet PO (07:39)
[2019-03-28] MEDS: Senna/Docusate Sodium 1 Tablet 2 TABLET PO (07:39)
[2019-03-28] MEDS: Famotidine 20 MG Tablet PO (07:39)
[2019-03-28] MEDS: Meloxicam 7.5 MG Tablet PO (07:40)
[2019-03-28] MEDS: Doxycycline 100 MG CAPSULE PO (09:32)
[2019-03-28 09:33] VITALS: BP 138/93; PULSE 80; PULSE 93; RESP 16; TEMP 36.8; O2SAT 93
--- NOTE | 2019-03-28 10:40 | PN_ITS ---
Reason for Visit: Follow-up for right TKR. Objective: Heart rate and blood pressure are controlled. Patient is being discharged. Vitals/I&O's: Vital Signs Temp Pulse Resp BP Pulse Ox 98.2 F 93 16 138/93 H 93 03/28/19 09:33 03/28/19 09:33 03/28/19 09:33 03/28/19 09:33 03/28/19 09:33 Oxygen Flow Rate (L/min) 6 Oxygen Delivery Method Room Air Weight: 173 lb 1.006 oz Body Mass Index (BMI) 31.6 Intake and Output for Last 24 Hours 03/26/19 03/27/19 03/28/19 23:59 23:59 23:59 Intake Total 2780.00 / 2780.00 914.58 / 914.58 200 / 200 Output Total 400 / 400 Balance 2780.00 / 2780.00 514.58 / 514.58 200 / 200 General: Alert, Oriented x3, Cooperative HEENT: Atraumatic, PERRLA, EOMI, Normocephalic Neck: Supple, No JVD, Negative Carotid Bruits Lungs: Clear to auscultation, Normal air movement, No rhonchi, No wheeze, No rales Cardiovascular: Regular rate, Regular Rhythm, Normal S1, Normal S2, No murmurs Abdomen: Bowel Sounds Present, Soft, Non Tender Extremities: No edema, Capillary Refill Less than 3 Seconds Skin: No rashes, No breakdown Musculoskeletal: No Tenderness to Palpation of Joints or Extremities, Arthritic Changes - Status post right TKR. Dressing is dry Neurological: Cranial nerves II-XII grossly intact Psych/Mental Status: Normal Affect, Appropriate Microbiology Past 72 Hours 03/26/19 11:00 Tissue - Other Gram Stain - Final 03/26/19 11:00 Tissue - Other Wound Culture - Preliminary No growth-Final to follow 03/26/19 11:00 Tissue - Other Anaerobic Culture - Preliminary No growth in 48 hours. 03/26/19 11:00 Tissue - Other Gram Stain - Final 03/26/19 11:00 Tissue - Other Wound Culture - Preliminary No growth-Final to follow 03/26/19 11:00 Tissue - Other Anaerobic Culture - Preliminary No growth in 48 hours. 03/26/19 11:00 Tissue - Other Gram Stain - Final 03/26/19 11:00 Tissue - Other Wound Culture - Preliminary No growth-Final to follow 03/26/19 11:00 Tissue - Other Anaerobic Culture - Preliminary No growth in 48 hours. Laboratory Results 03/28/19 05:22: WBC 11.1 H, RBC 3.54 L, Hgb 11.2 L, Hct 34.1 L, MCV 96.3, MCH 31.6, MCHC 32.8, RDW Std Deviation 49.4 H, RDW Coeff of Cody 13.9, Plt Count 196, MPV 9.0 Current Medications Acetaminophen (Tylenol) 1,000 mg PO Q8 [facility] Last Admin: 03/28/19 06:17 Dose: 1,000 mg Documented by: Ascorbic [facility] ([facility]itamin C) [facility] Last Admin: 03/28/19 07:38 Dose: 500 mg Documented by: Aspirin (Aspirin, Baby) [facility] Last Admin: 03/28/19 07:38 Dose: 81 mg Documented by: Calcium Carbonate (Tums) [facility] Last Admin: 03/28/19 07:38 Dose: 1,000 mg Documented by: Carvedilol (Coreg) 3.125 mg PO BID [facility] Last Admin: 03/28/19 07:39 Dose: 3.125 mg Documented by: Cholecalciferol (Vitamin D) 2,[facility] Last Admin: 03/28/19 07:38 Dose: 2,000 unit Documented by: Doxycycline Monohydrate (Doxycycline) 100 mg PO BID [facility] Stop: 04/02/19 22:01 Last Admin: 03/28/19 09:32 Dose: 100 mg Documented by: Enteral Nutritional Formula (Ensure Surgery) 237 ml PO TIDCM [facility] Last Admin: 03/28/19 07:37 Dose: Not Given Documented by: Famotidine (Pepcid) 20 mg PO DAILY [facility] Last Admin: 03/28/19 07:39 Dose: 20 mg Documented by: Folic Acid (Folic Acid) 1 mg PO DAILY@0800 [facility] Last Admin: 03/28/19 07:38 Dose: 1 mg Documented by: Gabapentin (Neurontin) 300 mg PO Q8H [facility] Last Admin: 03/28/19 06:17 Dose: 300 mg Documented by: Hydroxychloroquine Sulfate ([facility]aquenil) [facility] Last Admin: 03/28/19 07:38 Dose: 200 mg Documented by: Insulin Human Lispro (Humalog Kwikpen (Bkc)) 1 - 6 unit SC Q4H PRN PRN; Protocol PRN Reason: BG>/= 180, SEE PROTOCOL Levothyroxine Sodium (Synthroid) 112 mcg PO DAILY@0600 [facility] Last Admin: 03/28/19 06:17 Dose: 112 mcg Documented by: Meloxicam (Mobic) 7.5 mg PO BID [facility] Last Admin: 03/28/19 07:40 Dose: 7.5 mg Documented by: Morphine Sulfate () 2 - 4 mg IV Q2H PRN PRN PRN Reason: Pain Score 6-10/10 Morphine Sulfate () 2 - 4 mg IV Q2H PRN PRN PRN Reason: Pain Score 6-10/10 Ondansetron HCl (Zofran) 4 mg IV Q8H PRN PRN PRN Reason: NAUSEA Oxycodone HCl (Oxyir) 5 - 10 mg PO Q4H PRN PRN PRN Reason: Pain Score 4-10/10 Last Admin: 03/28/19 04:50 Dose: 5 mg Documented by: Pantoprazole Sodium (Protonix) 40 mg PO DAILY [facility] Last Admin: 03/28/19 07:39 Dose: 40 mg Documented by: Prednisone () 10 mg PO DAILY PRN PRN Reason: flare ups RA Promethazine HCl (Phenergan) 12.5 mg IM Q6H PRN PRN; Protocol PRN Reason: NAUSEA/VOMITING Senna/Docusate Sodium (Senokot-S, Fern-Colace) 2 tablet PO BID [facility] Last Admin: 03/28/19 07:39 Dose: 2 tablet Documented by: Sodium Chloride () 10 - 40 ml IV UD PRN PRN Reason: SALINE FLUSH Last Admin: 03/27/19 21:29 Dose: 10 ml Documented by: Venlafaxine HCl (Effexor Xr) 75 mg PO QHS [facility] Last Admin: 03/27/19 21:16 Dose: 75 mg Documented by: STROKE Vital Signs/Narrative: Vital Signs Temp Pulse Resp BP Pulse Ox 03/28/19 09:33 98.2 F 93 16 138/93 H 93 Medical Necessity - Tobacco Use Smoking Status: Never smoker Tobacco Use: Non-smoker Assessment/Plan All Active Problems (Last Reviewed 01/23/19 @ 11:36 by Sharon Briceno) Preop cardiovascular exam (Acute) This is a 73-year-old female with history of rheumatoid arthritis, systemic l upus and fibromyalgia was admitted for elective right total knee revision. She also has history of tricuspid insufficiency, pulmonary hypertension. She had preop stress echo 02/2019 reported as estimated EF 65% and normal adequate dobutamine echocardiogram. Negative for ischemia by EKG and echocardiographic criteria. She had echo on 02/06/2019 and reported as the estimated ejection fraction is 65 %.Stage 1 diastolic dysfunction. The right atrium is moderately enlarged. Trivial mitral valve insufficiency. Mild to moderate (1-2+) tricuspid valve insufficiency.Right ventricular systolic pressure estimated to be 31 mmHg. Overall management during hospital course as follows 1. Status post right total knee revision on 03/26/2019 ~Patient postoperative orders regarding pain management PT OT. ON ASPIRIN 81 MG TWICE DAILY PER ORTHOPEDIC SURGEON FOR DVT PROPHYLAXIS. 2. Rheumatoid arthritis ~Patient was on Humira which has been of for the surgery 3. Systemic lupus ~patient is on Plaquenil continued 4. Pulmonary hypertension ?Patient did not present with shortness of breath is apparently followed by cardiology as outpatient 5. GERD ~Patient is on PPI 6. Hypothyroidism ~patient is on levothyroxine home dose continued 7. Fibromyalgia ~patient is on SNRI, venlafaxine as well as gabapentin 8. DVT prophylaxis As addressed by orthopedic service?aspirin 81 mg p.o. twice daily Patient is hemodynamically stable. Patient discharged home with follow-up orthopedic surgeon. Discharge summary from primary orthopedic service Code Visit Inpatient E&M: 96646 Subs Hosp L2
[2019-03-28 12:54] VITALS: BP 150/95; PULSE 89; RESP 16; TEMP 36.9; O2SAT 98
--- NOTE | 2019-03-28 13:00 | CASEMGMT ---
RN CM called and confirmed acceptance with [facility]. [facility] accepted patient with start of care for 03/31/19. RN CHERIE updated that patient.
== END 2019-03-28 13:50 | disposition home health service (06) | DRG 467 ==
LOC: ACINP 08:28 → MS3 09:20
PROVIDERS: Admitting Provider Specialist; Family Provider Family Medicine; PCP Family Medicine; Referring Provider Specialist; Visit Provider Internal Medicine
PROC: 0SPC0JZ Removal of Synthetic Substitute from Right Knee Joint, Open Approach (ICD-10-PCS; principal; 2019-03-26 10:40)
DX: T84.012A Broken internal right knee prosthesis, initial encounter (principal); D62 Acute posthemorrhagic anemia; T84.022A Instability of internal right knee prosthesis, initial encounter; M32.9 Systemic lupus erythematosus, unspecified; M79.7 Fibromyalgia; Z96.651 Presence of right artificial knee joint; M06.9 Rheumatoid arthritis, unspecified; I10 Essential (primary) hypertension; I07.1 Rheumatic tricuspid insufficiency; E03.9 Hypothyroidism, unspecified; I27.21 Secondary pulmonary arterial hypertension; K21.9 Gastro-esophageal reflux disease without esophagitis
CPT/HCPCS: 36415; 73560; 80048; 80053; 82248; 82962; 85025; 85027; 85610; 85730; 87015; 87070; 87075; 87081; 87102; 87116; 87176; 87205; 87206; 97110; 97162; 97166; 97530; 97535; 99251; C1776; J7120; A4216; G0463; J2405

== ENCOUNTER → 2019-09-19 07:11 | Outpatient (CLI) | payer MEDICARE, SELFPAY ==
[2019-03-26 15:08] VITALS: BMI 31.6
--- NOTE | 2019-09-19 07:39 | MRI_ITS ---
STUDY: MRI LUMBAR SPINE WITHOUT CONTRAST REASON FOR EXAM: Female, 73 years old. Low back pain TECHNIQUE: Standardized fat and water weighted pulse sequences were obtained in the sagittal and axial planes. COMPARISON: 07 July 2016 FINDINGS: There is severe levoscoliosis of the lumbar spine. Anterior-posterior plane alignment is preserved. There is dorsal hardware fusion with pedicular screws at L3, L4 and L5. Paraspinous soft tissues are normal. SI joints are intact. Conus medullaris terminates at L1. Cauda equina is normal. Thecal sac is widely patent at all levels. Foramina are patent at all levels. Appearance is stable since prior. MRI/Spine Lumbar (Routine) IMPRESSION: 1. No change since prior. 2. Scoliosis, dorsal hardware fusion of L3-L5. 3. The thecal sac, no neural compression. Electronically Signed: Jeremias Toure, at 17:27 EDT Tel , Service support ,
== END ==
PROVIDERS: PCP Family Medicine; Referring Provider Anesthesiology Pain Medicine; Visit Provider Anesthesiology Pain Medicine
DX: M51.37 Other intervertebral disc degeneration, lumbosacral region (principal); M54.17 Radiculopathy, lumbosacral region
CPT/HCPCS: 72148

== ENCOUNTER → 2019-10-30 10:23 | Outpatient (CLI) | payer MEDICARE, SELFPAY ==
[2019-10-13 15:08] VITALS: BMI 26.9
--- NOTE | 2019-10-30 10:23 | STE_ITS ---
Reason For Study: Chest Pain Stress Results Protocol: Dobutatmine Stress Echo Maximum Predicted HR: 149 bpm Target HR: 127 bpm % Maximum Predicted HR: 90 % DurationHeart Rate Stage (mm:ss) (bpm) BP Dose Comment BASELINE 72 152/88 DSE- 10 MCG 3:05 80 165/19825.00NO SX DSE- 20 MCG 4:16 134 145/96664.00NO SX RECOVERY 71 144/94 DENIES COMPLAINT Stress Duration: 7:21 mm:ss Maximum Stress HR: 134 bpm Baseline Echocardiogram Findings The estimated ejection fraction is 65 %. Stress Echo Wall motion Data Resting WM Intermediate WM Stress WM Resting Wall Motion Wall Motion Stress No regional wall motion No regional wall motion abnormalities noted. abnormalities noted. EKG Data The baseline ECG displays normal sinus rhythm. The patient was titrated from 10 mcg to a maximum of 20 mcg of dobutamine during the stress. The maximum heart rate attained was 134 beats per minute. This was 89% of maximum predicted heart rate. During dobutamine infusion, there were no ST or T wave changes noted to suggest ischemia. No arrhythmias noted. No clinical angina was noted. Doppler Measurements & Calculations TR max jennifer: 277.1 cm/sec TR max P.7 mmHg Interpretation Summary The estimated ejection fraction is 65 %. Normal, adequate, dobutamine echocardiogram. Negative for ischemia by EKG and echocardiographic criteria. No anginal symptoms noted. No arrhythmias noted. Hypertensive blood pressure response to dobutamine. Test terminated with attainment target heart rate. Final LVEF is 75%. Patient Toller procedure well. No complications. Ordering Physician: Rex Garcia Referring Physician: Rex Garcia Performed By: Melissa Duarte, TEOFILOCS, RVT
== END ==
PROVIDERS: PCP Family Medicine; Referring Provider Internal Medicine Cardiovascular Disease; Visit Provider Internal Medicine Cardiovascular Disease
DX: R07.9 Chest pain, unspecified (principal); I27.21 Secondary pulmonary arterial hypertension; R00.2 Palpitations; R06.00 Dyspnea, unspecified
CPT/HCPCS: 93017; 93350; J7040; A4216

== ENCOUNTER → 2019-11-28 09:52 | Outpatient (CLI) | payer MEDICARE, SELFPAY ==
[2019-10-13 15:08] VITALS: BMI 26.9
--- NOTE | 2019-11-28 10:09 | BI_ITS ---
MAMMOGRAPHY - BILATERAL SCREENING REASON FOR EXAM: Female, 74 years old. Routine annual screening examination. PERTINENT HISTORY: Non-contributory. TECHNIQUE: Digital bilateral breast yumiok (3D mammographic acquisition) in the CC and MLO projections. 2-D mediolateral oblique (MLO) and craniocaudad (CC) views of both breasts were obtained. CAD: Full Field Digital Mammography with Computer Added Detection was performed. COMPARISON: 11/25/2018 and 11/22/2017 FINDINGS: Breast Composition: The breasts are almost entirely fatty. There are no dominant masses or suspicious calcifications. No other significant abnormalities are identified. BI/SCREEN MAMM (CAD) W/YUMIKO BILAT IMPRESSION: Stable bilateral screening mammogram. Yearly follow-up mammogram recommended. (A) ASSESSMENT CATEGORY: BIRADS Category 2: Benign. A letter regarding these results will be sent to the patient by the facility within 30 days. Approximately 10% of breast cancers are not detected by mammography. A normal mammogram should not delay biopsy of a clinically suspicious abnormality. [id number] Electronically Signed: Clinton Mcadams, at 11:03 EDT Tel , Service support ,
== END ==
PROVIDERS: PCP Family Medicine; Referring Provider Family Medicine; Visit Provider Family Medicine
DX: Z12.31 Encounter for screening mammogram for malignant neoplasm of breast (principal)
CPT/HCPCS: 77063; 77067

== ENCOUNTER → 2020-05-03 11:31 | Outpatient (CLI) | payer MEDICARE, SELFPAY ==
[2019-10-13 15:08] VITALS: BMI 26.9
[2020-05-03 15:12] LABS: Absolute Lymphocyte Count 2.58 X10^3/uL (0.83-4.51); Absolute Neutrophil Count 3.1 X10^3/uL (2.0-7.7); Basophil# 0.03 X10^3/uL; Basophil% 0.5 % (0-1); Eosinophil# 0.26 X10^3/uL; Hematocrit 43.2 % (37-47); Hemoglobin 14.2 g/dL (12.0-15.0); Lymphocyte # 2.58 X10^3/ul (4.0); Lymphocyte % 39.3 % (19-41); Mean Corp Hgb Conc 32.9 g/dL (32-36); Mean Corpuscular Hgb 31.1 pg (27.0-32.0); Mean Corpuscular Volume 94.5 fL (81-99); Mean Platelet Vol. 9.1 fl (6.2-12.0); Monocyte# 0.62 X10^3/uL; Monocyte% 9.4 % (0-10); NRBC Flagged by Analyzer 0 % (0-5); Neutrophil # 3.07 X10^3/uL (2.7-7.7); Neutrophil % 46.6 % (47-70); Platelet Count 318 K/mm3 (150-450); RBC Distribution Width CV 12.7 % (11.6-14.6); RBC Distribution Width SD 44.4 fl (35.1-43.9); Red Blood Count 4.57 M/mm3 (4.2-5.4); White Blood Count 6.6 K/mm3 (4.4-11.0)
[2020-05-03 15:44] LABS: Vitamin B12 852 pg/mL (211-911)
[2020-05-03 16:24] LABS: ALB/GLOB Ratio 1.1 RATIO (0.9-2.4); AST(SGOT) 24 U/L (15-37); Alanine Aminotransfer ALT/SGPT 19 U/L (13-56); Albumin, Serum 3.9 g/dL (3.2-5.0); Alkaline Phosphatase 76 U/L (45-117); Anion Gap 8 (5-15); BUN 31 mg/dL (7-18); BUN/Creat Ratio 31.4 RATIO (10-20); Calcium,Total 9.6 mg/dL (8.5-10.1); Chloride 105 mmol/L (98-107); Creatinine, Serum 0.99 mg/dL (0.55-1.02); EST Glomerular Filtration Rate 59 mL/min (>60); Est Glom Filt Rate - Afr Amer 71 mL/min (>60); Globulin 3.6 g/dL (2.2-4.2); Glucose 79 mg/dL (74-106); Protein, Total 7.5 g/dL (6.4-8.2); Sodium Level 140 mmol/L (136-145)
== END ==
PROVIDERS: PCP Family Medicine; Referring Provider Internal Medicine Rheumatology; Visit Provider Internal Medicine Rheumatology
DX: M06.00 Rheumatoid arthritis without rheumatoid factor, unspecified site (principal); Z79.899 Other long term (current) drug therapy; M79.7 Fibromyalgia; M15.9 Polyosteoarthritis, unspecified; M16.0 Bilateral primary osteoarthritis of hip; M50.30 Other cervical disc degeneration, unspecified cervical region; M96.1 Postlaminectomy syndrome, not elsewhere classified; E03.9 Hypothyroidism, unspecified
CPT/HCPCS: 36415; 80053; 82607; 82746; 85025

== ENCOUNTER → 2020-05-14 13:30 | Outpatient (CLI) | payer MEDICARE, SELFPAY ==
[2019-03-26 15:08] VITALS: BMI 31.6
[2019-10-13 15:08] VITALS: BMI 26.9
[2020-05-14 18:01] LABS: Vitamin D,25 Hydroxy 37.7 ng/mL
[2020-05-14 18:06] LABS: Cholesterol 172 mg/dL (200); Ferritin 35 ng/mL (8-252); High Density Lipoprotein 65 mg/dL; Iron 63 ug/dL (50-170); T4 Free Direct 1.12 ng/dL (0.76-1.46); Thyroid Stim Hormone (TSH) 2.21 uIU/mL (0.358-3.74); Triglycerides 78 mg/dL; Very Low Density Lipoprotein 16 mg/dL (5-40)
== END ==
PROVIDERS: PCP Family Medicine; Visit Provider Family Medicine
DX: E03.9 Hypothyroidism, unspecified (principal); I10 Essential (primary) hypertension; I65.29 Occlusion and stenosis of unspecified carotid artery; D50.9 Iron deficiency anemia, unspecified; M06.9 Rheumatoid arthritis, unspecified
CPT/HCPCS: 36415; 80061; 82306; 82728; 83540; 84439; 84443

== ENCOUNTER → 2020-07-06 09:04 | Outpatient (CLI) | payer MEDICARE, SELFPAY ==
[2020-05-19 15:03] VITALS: BMI 28.5
--- NOTE | 2020-07-06 09:11 | BD_ITS ---
STUDY: DUAL ENERGY X-RAY ABSORPTIOMETRY / DXA REASON FOR EXAM: Female, 74 years old. Z79.52 the patient is postmenopausal. Steroid use. Loss of height. TECHNIQUE: Bone Mineral Density (BMD) measurements of lumbar spine and bilateral hips were obtained. COMPARISON: Comparison is made with prior study dated 06/15/2015. FINDINGS: Lumbar Spine (L1-L4): g/cm2 (1.215) / T-score (0.4) / Z-score (2.1) Findings are suggestive of normal bone density with a low fracture risk. Left Femur Total: g/cm2 (0.768) / T-score (-1.9) / Z-score (-0.3) Left Femoral Neck: g/cm2 (0.804) / T-score (-1.7) / Z-score (0.1) Right Femur Total: g/cm2 (0.703) / T-score (-2.4) / Z-score (-0.8) Right Femoral Neck: g/cm2 (0.824) / T-score (-1.5) / Z-score (0.3) The T-Scores on the most recent prior examination were: Lumbar Spine (L1-L4): There has been improvement of bone density since the previous examination. Left Femur Total: which represents a worsening of 8.5%. Right Femur Total: which represents a worsening of 13.1%. BD/Dexa Bone Density Study IMPRESSION: The patient is considered osteopenic as outlined below according to World [employer] Organization (WHO) criteria with a moderate fracture risk. There has been worsening of bone density since the previous examination. Reference Information: The T-score is the number of standard deviations above or below the standard which is normal for young adults at their peak bone mineral density. The World Health Organization (WHO) interprets the T-scores as follows: Above -1 Normal bone density Between -1 and -2.5 Osteopenia Equal to / or below -2.5 Osteoporosis As a practical clinical guideline, osteopenia may be graded as follows: Mild -1 through -1.5 Moderate -1.6 through -2.0 Severe -2.1 through -2.4 The Z-score is the number of standard deviations above or below age-matched controls. A Z-score of less than -1.5 would be considered abnormal. References: 1. NIH Osteoporosis and Related Bone Diseases www osteo.org 2. International Society for Clinical Densitometry www iscd.org 3. National Osteoporosis Foundation www nof.org Electronically Signed: Thanh Baugh MD at 15:39 EDT , Service support ,
== END ==
PROVIDERS: PCP Family Medicine; Referring Provider Family Medicine; Visit Provider Family Medicine
DX: M06.9 Rheumatoid arthritis, unspecified (principal); M41.9 Scoliosis, unspecified; Z91.81 History of falling; Z78.0 Asymptomatic menopausal state
CPT/HCPCS: 77080

== ENCOUNTER → 2020-09-30 10:05 | Outpatient (CLI) | payer MEDICARE, SELFPAY ==
[2020-05-19 15:03] VITALS: BMI 28.5
--- NOTE | 2020-09-30 10:08 | RAD_ITS ---
STUDY: X-RAY - PELVIS AND RIGHT HIP REASON FOR EXAM: Female, 74 years old. Right hip pain. TECHNIQUE: 3 views of the pelvis and hip. COMPARISON: None. FINDINGS: There is a non-specific bowel gas pattern. Vascular calcification. Generalized osteopenia. Normal bilateral iliac wings, sacroiliac joints and visualized sacrum. Normal bilateral superior and inferior pubic rami. Normal pubic symphysis. Normal bilateral ischial tuberosities. Extensive fusion of the lower lumbar spine with laminectomies. Sclerosis and lucency of the right tibia which may represent avascular necrosis. No loss of substance of the femoral head at this time. Mild medial arthrosis of both hips. 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 Mild arthrosis of both hips. No other abnormality. Electronically Signed: Graham Brewer MD at 11:01 EDT , Service support ,
== END ==
PROVIDERS: PCP Family Medicine; Referring Provider Nurse Practitioner Family; Visit Provider Nurse Practitioner Family
DX: M25.551 Pain in right hip (principal)
CPT/HCPCS: 73502

== ENCOUNTER → 2020-11-06 07:44 | Outpatient (CLI) | payer MEDICARE, SELFPAY ==
[2020-10-13 10:02] VITALS: BMI 28.1
--- NOTE | 2020-11-06 08:30 | MRI_ITS ---
STUDY: MRI RIGHT HIP REASON FOR EXAM: Female, 74 years old. RIGHT hip AVN, pain TECHNIQUE: Standardized fat and water weighted pulse sequences were obtained in all 3 orthogonal planes. Images of the pelvis are included on several sequences. COMPARISON: Pelvic x-ray dated SEPTEMBER 30, 2020 FINDINGS: Minimal sclerosis in the proximal aspect of the right femoral head but no serpiginous signal or subchondral collapse or edema is present. No fractures seen. No right hip joint effusion. A small left hip joint effusion is present. There is no evidence of avascular necrosis of the left femoral head. Moderate-sized tears of the right gluteus medius and zackary tendons are present at the greater trochanteric site with a small amount of associated bursal fluid. The hip joint spaces are preserved. Normal acetabulum. Normal labrum. Normal femoral head. Normal femoral neck and intratrochanteric region. Normal left gluteus minimus, medius and iliopsoas tendons and distal insertions. There is mild to moderate fatty atrophy of the bilateral gluteal muscles. There is no iliopsoas or iliopectineal bursitis. Normal superior and inferior pubic rami. Normal pubic symphysis. Normal ischial tuberosity. Normal origin of the hamstring tendons. Normal visualized iliac wing, sacroiliac joint, and sacral ala. Significant rectosigmoid diverticulosis noted. The remaining visualized intrapelvic structures are unremarkable. Lumbar spine hardware and chronic postoperative changes noted. MRI/Lower Ext Joint Only (Routine) IMPRESSION: 1. Moderate-sized tears of the right gluteus medius and zackary tendons are present at the greater trochanteric site with a small amount of associated bursal fluid. 2. Minimal sclerosis in the proximal aspect of the right femoral head but no serpiginous signal or subchondral collapse or edema is present. No MR evidence of avascular necrosis. 3. No fractures seen. No right hip joint effusion. 4. A small left hip joint effusion is present. There is no evidence of avascular necrosis of the left femoral head. Electronically Signed: Marek Tinsley MD at 23:54 EDT , Service support ,
== END ==
PROVIDERS: PCP Family Medicine; Referring Provider Anesthesiology Pain Medicine; Visit Provider Anesthesiology Pain Medicine
DX: M16.11 Unilateral primary osteoarthritis, right hip (principal)
CPT/HCPCS: 73721

== ENCOUNTER 2021-08-22 18:07 | Inpatient (IN) | payer MEDICARE, SELFPAY ==
[2021-08-22 18:18] VITALS: BP 130/76; PULSE 89; RESP 18; TEMP 36.4; O2SAT 95
--- NOTE | 2021-08-22 19:45 | PCM.HP.STD ---
HPI - General General Date of Admission: 08/22/21 HPI Narrative YAHAIRA LISA, is a 75 Female who presents with followin08/15/2021 [facility] Neurosurgery. Removal of hardware, T10 to pelvis instrumented fusion, L1-L3 decompression, primary repair of durotomy. 08/18/2021 No acute overnight events. Birmingham, Tamsulosin for urinary retention. Birmingham discontinued. PT/OT for debility. Medical records incomplete. 08/22/2021 Admit to TCU with debility, here for rehabilitation, strengthening, prior to discharge home alone. [facility] Medical History (Updated 08/22/21 @ 19:[address] Yusef Alcantara MD) Chronic pain syndrome Essential hypertension Fibromyalgia GERD (gastroesophageal reflux disease) Intermittent palpitations Non-rheumatic tricuspid valve insufficiency Preop cardiovascular exam Rheumatoid arthritis Secondary pulmonary arterial hypertension Home Medications ascorbic acid (vitamin C) 500 mg capsule 500 mg PO QDAY ea 04/14/17 [History Last Taken Unknown] gabapentin 300 mg capsule 300 mg PO Q8H 30 Days #90 cap 04/14/17 [History Last Taken Unknown] multivitamin,em-lmvt-suyopmnn 1 tab PO QDAY 04/14/17 [History Last Taken Unknown] potassium gluconate 595 mg (99 mg) tablet 595 mg PO QDAY tab 04/14/17 [History Last Taken Unknown] selenium 200 mcg capsule 200 mcg PO QDAY 04/14/17 [History Last Taken Unknown] pantoprazole 40 mg tablet,delayed release 40 mg PO DAILY 12/07/17 [History Last Taken Unknown] prednisone 10 mg tablet 10 mg PO DAILY PRN PRN 30 Days tab 03/04/18 [History Last Taken Unknown] hydroxychloroquine 200 mg tablet 200 mg PO BID 01/23/19 [History Last Taken Unknown] levothyroxine 112 mcg tablet 112 mcg PO DAILY 01/23/19 [History Last Taken 03/26/19 06:00] magnesium 200 mg tablet 400 mg PO DAILY tab 01/23/19 [History Last Taken Unknown] mecobalamin (vitamin B12) 1,000 mcg disintegrating tablet,sublingual 1,000 mcg SUBLINGUAL DAILY 01/23/19 [History Last Taken Unknown] meloxicam 7.5 mg PO BID #60 tab 03/28/19 [Rx Last Taken Unknown] carvedilol 3.125 mg tablet 3.125 mg PO BID #180 tab 10/13/20 [Rx Last Taken Unknown] acetaminophen 650 mg PO Q4H PRN 08/22/21 [History Last Taken Unknown] adalimumab [Humira] 40 mg SUBCUT QWEEK 08/22/21 [History Last Taken Unknown] alendronate 35 mg PO QWEEK 08/22/21 [History Last Taken Unknown] bisacodyl [Dulcolax (bisacodyl)] 10 mg MI DAILY PRN PRN 08/22/21 [History Last Taken Unknown] docusate sodium [Colace] 100 mg PO BID 08/22/21 [History Last Taken Unknown] ferrous sulfate 325 mg PO DAILY 08/22/21 [History Last Taken Unknown] fluticasone propionate [Flonase] 2 spray INTRANASAL DAILY 08/22/21 [History Last Taken Unknown] heparin (porcine) 5,000 unit SUBCUT Q8H 08/22/21 [History Last Taken Unknown] lidocaine [Lidoderm] 1 patch TOPICAL DAILY 08/22/21 [History Last Taken Unknown] magnesium hydroxide 30 ml PO Q8H PRN 08/22/21 [History Last Taken Unknown] magnesium oxide 400 mg PO BID 08/22/21 [History Last Taken Unknown] oxycodone [OxyIR] 5 mg PO Q6H PRN PRN 08/22/21 [History Last Taken Unknown] sennosides [senna] 8.6 mg PO QHS 08/22/21 [History Last Taken Unknown] tamsulosin [Flomax] 0.4 mg PO DAILY 08/22/21 [History Last Taken Unknown] tizanidine [Zanaflex] 2 mg PO Q8H PRN 08/22/21 [History Last Taken Unknown] Allergy/AdvReac Type Severity Reaction Status Date / Time Penicillins [PCN] Allergy Rash Verified 10/13/20 10:02 Family History Father CAD (coronary artery disease) Brother CAD (coronary artery disease) Surgical History bilateral hand surgery H/O laminectomy (~2009) History of bilateral knee replacement History of History of hysterectomy with unilateral oophorectomy History of right shoulder replacement History of tonsillectomy Status post bilateral foot surgery Social History (Updated 08/22/21 @ 19:[address] Yusef Alcantara MD) household members: none Smoking Status: Never smoker alcohol intake: never substance use type: does not use caffeine: Yes Type: coffee Number of servings: 1 ROS Constitutional Constitutional: Denies chills, fever(s) or weight gain ENT HEENT: Denies headache(s), nasal congestion or nasal discharge Cardiovascular Cardiovascular: Denies chest pain or palpitations Respiratory/Chest Respiratory/Chest: Denies cough, excessive phlegm production or shortness of breath with exertion Gastrointestinal Gastrointestinal: Denies abdominal pain, nausea or vomiting Genitourinary Genitourinary: Denies dysuria Musculoskeletal Musculoskeletal: Denies joint pain or joint swelling Integumentary Integumentary: Denies rash or wounds Neurologic Neurologic: Denies focal weakness, numbness or tingling Psychiatric Psychiatric: Denies anxiety, auditory hallucinations, depression, homicidal ideation or suicidal ideation Vital Signs Vital Signs Vital Signs: 08/22/21 18:18 Temperature 97.6 F L Temperature Source Temporal Pulse Rate 89 Respiratory Rate 18 Blood Pressure 130/76 H Blood Pressure Mean 94 Blood Pressure Source Monitor Blood Pressure Position Semi-Fowlers Blood Pressure Location Left Arm Pulse Ox 95 Oxygen Delivery Method Room Air Physical Exam Const alert General Appearance: cooperative HEENT normocephalic Eyes PERRL and EOMs intact bilaterally Neck supple, no JVD and no carotid bruits Resp normal respiratory effort, normal air movement and clear to auscultation bilaterally Cardio regular rate and regular rhythm GI normal to inspection, nondistended, normoactive bowel sounds, non-tender and non-distended Extremity normal capillary refill General Extremity: Negative for edema Skin no rashes or lesions noted General Skin Exam: no breakdown Psych affect normal Appearance: appropriate Results Lab / Micro Data Result Diagrams: 08/23/21 05:14 08/23/21 05:14 Assessment & Plan Assessment/Plan (1) Debility: (2) Lumbar spinal stenosis: (3) Rheumatoid arthritis: (4) Gastroesophageal reflux disease: (5) Fibromyalgia: (6) Hyperlipidemia: (7) Low back pain: (8) Chronic pain: (9) Hypertension: PLAN: 75 year old female with below past medical history underwent removal of hardware, T10 to pelvis instrumented fusion, L1-L3 decompression, primary repair of durotomy 08/15/2021 per [facility] Neurosurgery, admitted to TCU with debility, here for rehabilitation, strengthening, prior to discharge home alone. Debility - PT/OT. Pain - Tylenol 1000mg q6h prn pain (1-3), Tramadol 50mg q6h prn pain (4-5), Oxycodone 5mg q4h prn pain (6-10), Lidoderm 1 patch td daily. Bowel - Senna/colace 2 tablets bid, Dulcolax 10mg pr daily prn. Adult immunization - Administer pneumonia vaccine, flu vaccine, covid19 vaccine as appropriate. DVT prophylaxis - HAS-BLED score 1 intermediate risk of bleeding, Edilia score 7 high risk of blood clots, overall risk high, Rx Xarelto 10mg daily x 30 days. Hold Xarelto due to anemia. Rheumatoid arthritis - Humira 40mg sc qweek, Plaquenil 200mg bidcm, Prednisone 10mg daily prn. Osteoporosis - Alendronate 35mg qweek. Vitamin C deficiency - Vitamin C 500mg daily. Hypertension - Coreg 3.125mg bid. Iron deficiency anemia - Ferrous sulfate 325mg daily. Allergic rhinitis - Flonase 2 spray nasal daily. Neuropathic pain - Gabapentin 300mg q8h. Hypothyroidism - Levothyroxine 112mcg daily. Hypomagnesemia - Magnesium oxide 400mg bid. GERD - Pantoprazole 40mg daily. Hypokalemia - KCL 595mg daily. Urinary retention - Tamsulosin 0.4mg daily. Muscle spasm - Tizanidine 2mg q8h prn. Acute anemia - Hemoglobin 7.4, transfuse 2 units PRBC.
[2021-08-22 21:50] VITALS: PULSE 78; RESP 18; O2SAT 91
[2021-08-22] MEDS: Acetaminophen 500 MG Tablet 1000 MG PO (22:07)
[2021-08-22] MEDS: Carvedilol 3.125 MG TABLET PO (22:08)
[2021-08-22] MEDS: Gabapentin 300 MG Capsule PO (22:12)
[2021-08-22] MEDS: Senna/Docusate Sodium 1 Tablet 2 TABLET PO (22:12)
[2021-08-23] MEDS: oxyCODONE 5 MG Tablet PO ×2 (01:12→23:14)
[2021-08-23] MEDS: Pantoprazole Sodium 40 MG Tablet PO (04:33)
[2021-08-23] MEDS: Magnesium Chloride 64 MG Delay Rel.Tablet 128 MG PO ×2 (04:33→17:16)
[2021-08-23] MEDS: Ascorbic Acid 500 MG Tablet PO (04:33)
[2021-08-23] MEDS: Tamsulosin HCl 0.4 MG Capsule PO (04:33)
[2021-08-23] MEDS: Levothyroxine 112 MCG Tablet PO (04:33)
[2021-08-23] MEDS: Lidocaine 5% Patch 1 PATCH TOPICAL (04:33)
[2021-08-23] MEDS: Senna/Docusate Sodium 1 Tablet 2 TABLET PO ×2 (04:34→18:40)
[2021-08-23] MEDS: Fluticasone 0.05% 1 SPRAY NASAL.SRY 2 SPRAY NASAL (04:34)
[2021-08-23] MEDS: Gabapentin 300 MG Capsule PO ×3 (04:38→20:47)
[2021-08-23] MEDS: traMADol 50 MG Tablet PO ×2 (04:50→18:45)
[2021-08-23 05:38] LABS: Absolute Lymphocyte Count 1.36 X10^3/uL (0.83-4.51); Absolute Neutrophil Count 4.5 X10^3/uL (2.0-7.7); Basophil# 0.01 X10^3/uL; Basophil% 0.1 % (0-1); Eosinophil# 0.35 X10^3/uL; Eosinophils% 4.8 % (0-5); Hematocrit 22.7 % (37-47); Hemoglobin 7.4 g/dL (12.0-15.0); Lymphocyte # 1.36 X10^3/ul (0.83-4.51); Lymphocyte % 18.6 % (19-41); Mean Corp Hgb Conc 32.6 g/dL (32-36); Mean Corpuscular Hgb 31.6 pg (27.0-32.0); Mean Platelet Vol. 8.3 fl (6.2-12.0); Monocyte# 0.99 X10^3/uL; Monocyte% 13.5 % (0-10); NRBC Flagged by Analyzer 0 % (0-5); Neutrophil # 4.45 X10^3/uL (2.7-7.7); Neutrophil % 60.9 % (47-70); Platelet Count 348 K/mm3 (150-450); RBC Distribution Width CV 13.2 % (11.6-14.6); RBC Distribution Width SD 46.9 fl (35.1-43.9); Red Blood Count 2.34 M/mm3 (4.2-5.4); White Blood Count 7.3 K/mm3 (4.4-11.0)
[2021-08-23 06:07] LABS: Anion Gap 6 (5-15); BUN 11 mg/dL (7-18); BUN/Creat Ratio 20.7 RATIO (10-20); Calcium,Total 7.9 mg/dL (8.5-10.1); Chloride 103 mmol/L (98-107); Creatinine, Serum 0.53 mg/dL (0.55-1.02); EST Glomerular Filtration Rate 119 mL/min (>60); Est Glom Filt Rate - Afr Amer 145 mL/min (>60); Glucose 125 mg/dL (74-106); Potassium 3.4 mmol/L (3.5-5.1); Sodium Level 136 mmol/L (136-145)
[2021-08-23 08:30] VITALS: BP 101/71; PULSE 95
[2021-08-23] MEDS: Hydroxychloroquine 200 MG Tablet PO ×2 (08:38→17:16)
[2021-08-23] MEDS: Potassium Chloride Oral Tablet 20 MEQ PO (09:45)
[2021-08-23] MEDS: Tuberculin,Purif.prot.deriv. 50 TU/ML Vial 0.1 ML ID (09:46)
--- NOTE | 2021-08-23 12:07 | PHA.CONS1_ITS ---
Progress Note - Pharmacy Subjective: TCU Admission Objective: Allergies Penicillins [PCN] Allergy (Verified 10/13/20 10:02) Rash Current Medications Generic Name Dose Route Start Last Admin Trade Name Freq PRN Reason Stop Dose Admin Acetaminophen 1,000 mg 08/22/21 21:20 08/22/21 22:07 Acetaminophen 500 Mg Tablet PO 1,000 mg Q6H PRN PRN Administration Pain Score 1-3 Adalimumab 40 mg 08/24/21 06:00 Adalimumab 40 Mg/0.4 Ml Pen.Ij.Kit SC Q14D [facility] Alendronate Sodium 35 mg 08/27/21 06:00 Alendronate Sodium 70 Mg Tablet PO Sa@0600 KARIE Ascorbic Acid 500 mg 08/23/21 06:00 08/23/21 04:33 Ascorbic Acid 500 Mg Tablet PO 500 mg DAILY KARIE Administration Bisacodyl 10 mg 08/22/21 20:39 Bisacodyl 10 Mg Suppository RC DAILY PRN PRN Constipation Carvedilol 3.125 mg 08/22/21 20:50 08/23/21 08:34 Carvedilol 3.125 Mg Tablet PO Not Given BIDCM KARIE Ferrous Sulfate 325 mg 08/23/21 12:00 Ferrous Sulfate 325 Mg Tablet PO 1200 [facility] Fluticasone Propionate 2 spray 08/23/21 06:00 08/23/21 04:34 Fluticasone 0.05% 1 [place] Nasal.Sry NASAL 2 spray DAILY KARIE Administration Gabapentin 300 mg 08/22/21 22:00 08/23/21 04:38 Gabapentin 300 Mg Capsule PO 300 mg Q8 KARIE Administration Hydroxychloroquine Sulfate 200 mg 08/23/21 08:00 08/23/21 08:38 Hydroxychloroquine 200 Mg Tablet PO 200 mg BIDCM KARIE Administration Levothyroxine Sodium 112 mcg 08/23/21 06:00 08/23/21 04:33 Levothyroxine 112 Mcg Tablet PO 112 mcg DAILY KARIE Administration Lidocaine 1 patch 08/23/21 06:00 08/23/21 04:33 Lidocaine 5% Patch TOPICAL 1 patch DAILY KARIE Administration Protocol Magnesium Chloride 128 mg 08/23/21 06:00 08/23/21 04:33 Magnesium Chloride 64 Mg Delay Rel.Tablet PO 128 mg BID KARIE Administration Oxycodone HCl 5 mg 08/22/21 21:20 08/23/21 01:12 Oxycodone 5 Mg Tablet PO 5 mg Q4H PRN PRN Administration Pain (Scale Score 6-10) Pantoprazole Sodium 40 mg 08/23/21 06:00 08/23/21 04:33 Pantoprazole Sodium 40 Mg Tablet PO 40 mg DAILY KARIE Administration Potassium Chloride 20 meq 08/24/21 08:00 Potassium Chloride Oral Tablet 20 Meq PO DAILYCM KARIE Prednisone 10 mg 08/22/21 20:39 Prednisone 10 Mg Tablet PO DAILY PRN PRN flare ups RA Senna/Docusate Sodium 2 tablet 08/22/21 21:30 08/23/21 04:34 Senna/Docusate Sodium 1 Tablet PO 2 tablet BID KARIE Administration Tamsulosin HCl 0.4 mg 08/23/21 06:00 08/23/21 04:33 Tamsulosin Hcl 0.4 Mg Capsule PO 0.4 mg DAILY KARIE Administration Tizanidine HCl 2 mg 08/22/21 20:39 Tizanidine Hcl 2 Mg Tablet PO Q8H PRN PRN muscle spasms Tramadol HCl 50 mg 08/22/21 21:19 08/23/21 04:50 Tramadol 50 Mg Tablet PO 50 mg Q6H PRN PRN Administration Pain Score 4-5 Tuberculin PPD 0.1 ml 08/30/21 10:00 Tuberculin,Purif.Prot.Deriv. 50 Tu/Ml Vial ID 08/30/21 10:01 X1 ONE Problem List (Last Reviewed 08/22/21 @ 19:[address] Yusef Alcantara MD) Hypertension (Chronic) Chronic pain (Chronic) Low back pain (Acute) Hyperlipidemia (Acute) Fibromyalgia (Acute) Gastroesophageal reflux disease (Acute) Rheumatoid arthritis (Acute) Lumbar spinal stenosis (Acute) Debility (Acute) Vital Signs Temp Pulse Resp BP Pulse Ox 97.6 F L 78 18 130/76 H 91 08/22/21 18:18 08/22/21 21:50 08/22/21 21:50 08/22/21 18:18 08/22/21 21:50 Oxygen Delivery Method Room Air Weight: 70.76 kg Sodium 136 mmol/L (136-145) 08/23/21 05:14 Potassium 3.4 mmol/L (3.5-5.1) L 08/23/21 05:14 Chloride 103 mmol/L (98-107) 08/23/21 05:14 Carbon Dioxide 27.0 mmol/L (21.0-32.0) 08/23/21 05:14 Anion Gap 6 (5-15) 08/23/21 05:14 BUN 11 mg/dL (7-18) 08/23/21 05:14 Creatinine 0.53 mg/dL (0.55-1.02) L 08/23/21 05:14 Est GFR (MDRD) Af Amer 145 mL/min (>60) 08/23/21 05:14 Est GFR (MDRD) Non-Af 119 mL/min (>60) 08/23/21 05:14 BUN/Creatinine Ratio 20.7 RATIO (10-20) H 08/23/21 05:14 Glucose 125 mg/dL (74-106) H 08/23/21 05:14 Assessment/Plan: 1. Pain: acetaminophen 1000mg PO Q6H PRN pain 1-3, tramadol 50mg PO Q6H PRN pain 4-5 and oxycodone 5mg PO Q4H PRN pain 6-10 and lidocaine 5% patch topically daily. Please continue to monitor for S/S of increased pain, PRN usage, constipation, renal function, skin irritation and respiratory depression. 2. Rheumatoid arthritis: Humira 40mg SC weekly, hydroxychloroquine 200mg PO BIDCM and prednisone 10mg PO daily PRN RA flare ups. Please continue to monitor for S/S of RA, infection and PRN usage. 3. Hypertension: carvedilol 3.125mg PO BID. Please continue to monitor HR (last 78) and BP (last 130/76). 4. GERD: pantoprazole 40mg PO daily. Please continue to monitor for S/S of GERD and diarrhea. 5. Osteoporosis: alendronate 35mg PO weekly. Please continue to monitor BMD and for jaw pain. 6. Iron deficiency anemia: ferrous sulfate 325mg PO daily. Please continue to monitor hemoglobin (last 7.4g/dL), constipation and dark stools. 7. Allergic rhinitis: Flonase 2sprays nasal daily. Please continue to monitor for S/S of allergic rhinitis. *8. Hypothyroidism: levothyroxine 112mcg PO daily. Please consider ordering a TSH level (last level from 05/2020) if clinically appropriate. Thanks. Please continue to monitor for S/S of hypo/hyperthyroidism. 9. Neuropathic pain: gabapentin 300mg PO Q8. Please continue to monitor for S/S of neuropathic pain and renal function. 10. Urinary retention: tamsulosin 0.4mg PO daily. Please continue to monitor for S/S of urinary retention and BP. 11. Muscle spams: tizanidine 2mg PO Q8H PRN muscle spams. Please continue to monitor for muscle spasms and PRN usage. (BEERs list medication). *12. Vitamin C deficiency/hypomagnesemia/hypokalemia: ascorbic acid 500mg PO daily, magnesium chloride 128mg PO BID and potassium chloride 20mEQ PO DAILYCM. Please consider ordering a magnesium level. Resident does not have one in the chart. Thanks. Please continue to monitor potassium levels (last 3.4mmol/L). Psychotropic Medications: None Unnecessary Medications: None Bowel Regimen: senna/docusate 2T PO BID and bisacodyl 10 mg RC daily PRN constipation. Please continue to monitor for S/S of constipation and PRN usage. Date of Note:: 08/23/21
[2021-08-23] MEDS: Ferrous Sulfate 325 MG Tablet PO (13:07)
[2021-08-23] MEDS: tiZANidine HCl 2 MG Tablet PO (13:10)
[2021-08-23 16:00] VITALS: BP 107/66; PULSE 79; RESP 18; TEMP 36.6; O2SAT 92
--- NOTE | 2021-08-23 16:35 | CASEMGMT ---
Social Work Multiple attempts to see pt but unavailable. Mirian Juares, COMMERCIAL CORRESPONDENT BEAD WIRE TAPER
[2021-08-23] MEDS: Carvedilol 3.125 MG TABLET PO (17:16)
[2021-08-23 17:19] VITALS: BP 118/71; PULSE 91
[2021-08-23 22:23] VITALS: PULSE 86; RESP 16; O2SAT 95
[2021-08-24] MEDS: Fluticasone 0.05% 1 SPRAY NASAL.SRY 2 SPRAY NASAL (06:00)
[2021-08-24] MEDS: Tamsulosin HCl 0.4 MG Capsule PO (06:00)
[2021-08-24] MEDS: Pantoprazole Sodium 40 MG Tablet PO (06:01)
[2021-08-24] MEDS: Ascorbic Acid 500 MG Tablet PO (06:01)
[2021-08-24] MEDS: Magnesium Chloride 64 MG Delay Rel.Tablet 128 MG PO ×2 (06:01→17:24)
[2021-08-24] MEDS: Gabapentin 300 MG Capsule PO ×3 (06:01→21:09)
[2021-08-24] MEDS: Levothyroxine 112 MCG Tablet PO (06:01)
[2021-08-24] MEDS: Senna/Docusate Sodium 1 Tablet 2 TABLET PO (06:01)
[2021-08-24] MEDS: Acetaminophen 500 MG Tablet 1000 MG PO ×2 (06:01→23:11)
[2021-08-24] MEDS: Lidocaine 5% Patch 1 PATCH TOPICAL (06:03)
[2021-08-24] MEDS: Hydroxychloroquine 200 MG Tablet PO ×2 (08:46→17:24)
[2021-08-24] MEDS: Carvedilol 3.125 MG TABLET PO ×2 (08:46→17:24)
[2021-08-24] MEDS: Potassium Chloride Oral Tablet 20 MEQ PO (08:47)
[2021-08-24] MEDS: oxyCODONE 5 MG Tablet PO ×3 (08:49→21:39)
--- NOTE | 2021-08-24 14:27 | NURSING ---
PHARMACY CALLED REGARDING HUMIRA BECAUSE FAMILY WAS SUPPOSED TO BRING IN TODAY FOR INJECTION TODAY. CALLED R' DAUGHTER, BERNICE. SHE AND R' STATE THAT DR MALIK DOES NOT WANT R' TO RECEIVE FOR AWHILE. WILL UPDATE DR RAPHAEL ON REQUEST TO DC MEDICATION.
[2021-08-24] MEDS: Ferrous Sulfate 325 MG Tablet PO (15:23)
[2021-08-24 16:00] VITALS: BP 118/69; PULSE 83; RESP 14; TEMP 36.4; O2SAT 93
--- NOTE | 2021-08-24 16:36 | CASEMGMT ---
Social Work Attempted to see pt but at blood transfusion. Mirian Juares ,GLASS MECHANIC POLICE SHIFT COMMANDER
[2021-08-24] MEDS: tiZANidine HCl 2 MG Tablet PO (23:54)
[2021-08-25] MEDS: oxyCODONE 5 MG Tablet PO ×3 (04:33→19:15)
[2021-08-25] MEDS: Magnesium Chloride 64 MG Delay Rel.Tablet 128 MG PO ×2 (04:34→17:00)
[2021-08-25] MEDS: Levothyroxine 112 MCG Tablet PO (04:34)
[2021-08-25] MEDS: Tamsulosin HCl 0.4 MG Capsule PO (04:35)
[2021-08-25] MEDS: Pantoprazole Sodium 40 MG Tablet PO (04:35)
[2021-08-25] MEDS: Ascorbic Acid 500 MG Tablet PO (04:35)
[2021-08-25] MEDS: Lidocaine 5% Patch 1 PATCH TOPICAL (04:36)
[2021-08-25] MEDS: Fluticasone 0.05% 1 SPRAY NASAL.SRY 2 SPRAY NASAL (04:37)
[2021-08-25] MEDS: Gabapentin 300 MG Capsule PO ×3 (04:44→20:31)
[2021-08-25 06:23] LABS: Anion Gap 6 (5-15); BUN 10 mg/dL (7-18); Calcium,Total 8.3 mg/dL (8.5-10.1); Chloride 102 mmol/L (98-107); Creatinine, Serum 0.56 mg/dL (0.55-1.02); EST Glomerular Filtration Rate 114 mL/min (>60); Est Glom Filt Rate - Afr Amer 138 mL/min (>60); Estimated Creatinine Clearance 39.63 ml/min; Glucose 130 mg/dL (74-106); Potassium 3.9 mmol/L (3.5-5.1); Sodium Level 135 mmol/L (136-145)
[2021-08-25 07:17] LABS: Hematocrit 32.1 % (37-47)
[2021-08-25] MEDS: Potassium Chloride Oral Tablet 20 MEQ PO (08:38)
[2021-08-25] MEDS: Acetaminophen 500 MG Tablet 1000 MG PO (08:38)
[2021-08-25] MEDS: Hydroxychloroquine 200 MG Tablet PO ×2 (08:38→17:01)
[2021-08-25] MEDS: Carvedilol 3.125 MG TABLET PO ×2 (08:38→17:00)
[2021-08-25 08:41] VITALS: BP 104/69; PULSE 90
[2021-08-25] MEDS: Ferrous Sulfate 325 MG Tablet PO (12:08)
--- NOTE | 2021-08-25 13:51 | CASEMGMT ---
Social Work Met with patient to complete initial assessment. Introduced self and role. Discussed code status and MOLST form. Pt confirms DNR-CC. MOLST communicated to , placed in chart. Explained [facility] insurance with NRD 08/26 and continued stay is not guaranteed. The goal is for pt to return home alone. Discussed pt has 6 steps to enter, but pt can have main floor set up. Pt has WASTEWATER TREATMENT ENGINEER 2x/wk for cleaning. Provided list of WASTEWATER TREATMENT ENGINEER for personal care. Pt's dtr works and unable to assist. Pt has new rylan. SW to follow for DC planning. Mirian Juares, INTERIOR ASSEMBLIES DEVELOPER PROVER WOOD PANEL INSPECTOR
[2021-08-25 15:46] VITALS: BP 94/57; PULSE 65; RESP 18; TEMP 36.3; O2SAT 94
--- NOTE | 2021-08-25 16:16 | NURSING ---
Pt has F/U appt with Dr. Parham pt had cancelled d/t didn't know how she was going to get there. Pt educated on options of transportation. Per Therapy pt will need to go [facility]IA [facility]. [facility] transportation will need set up for 08/31/21 appt is at 11:30 am.
[2021-08-25] MEDS: Bisacodyl 10 MG Suppository RC (16:21)
[2021-08-25 16:55] VITALS: BP 113/70; PULSE 83
[2021-08-25] MEDS: Senna/Docusate Sodium 1 Tablet 2 TABLET PO (17:00)
[2021-08-25] MEDS: tiZANidine HCl 2 MG Tablet PO (20:36)
[2021-08-25 20:45] VITALS: PULSE 58; RESP 16; O2SAT 92
[2021-08-26] MEDS: oxyCODONE 5 MG Tablet PO (00:24)
[2021-08-26] MEDS: Acetaminophen 500 MG Tablet 1000 MG PO ×3 (04:25→20:59)
[2021-08-26] MEDS: Gabapentin 300 MG Capsule PO ×3 (04:25→20:52)
[2021-08-26] MEDS: Fluticasone 0.05% 1 SPRAY NASAL.SRY 2 SPRAY NASAL (04:26)
[2021-08-26] MEDS: Pantoprazole Sodium 40 MG Tablet PO (04:27)
[2021-08-26] MEDS: Ascorbic Acid 500 MG Tablet PO (04:27)
[2021-08-26] MEDS: Tamsulosin HCl 0.4 MG Capsule PO (04:27)
[2021-08-26] MEDS: Senna/Docusate Sodium 1 Tablet 2 TABLET PO (04:27)
[2021-08-26] MEDS: Levothyroxine 112 MCG Tablet PO (04:27)
[2021-08-26] MEDS: Magnesium Chloride 64 MG Delay Rel.Tablet 128 MG PO ×2 (04:27→17:21)
[2021-08-26] MEDS: Lidocaine 5% Patch 1 PATCH TOPICAL (04:31)
[2021-08-26] MEDS: Potassium Chloride Oral Tablet 20 MEQ PO (08:10)
[2021-08-26] MEDS: Carvedilol 3.125 MG TABLET PO ×2 (08:11→17:21)
[2021-08-26] MEDS: Hydroxychloroquine 200 MG Tablet PO ×2 (08:11→17:21)
[2021-08-26 08:12] VITALS: BP 120/83; PULSE 87
--- NOTE | 2021-08-26 10:30 | NURSING ---
[place] removed per order to start voiding trial pt tolerated well. Will bladder scan q8hr.
[2021-08-26 11:50] VITALS: PULSE 84; O2SAT 98
[2021-08-26] MEDS: Ferrous Sulfate 325 MG Tablet PO (11:55)
[2021-08-26] MEDS: Ensure Clear 120 ML Liquid PO ×3 (14:54→20:53)
[2021-08-26 16:00] VITALS: BP 137/74; PULSE 96; RESP 14; TEMP 36.8; O2SAT 94
--- NOTE | 2021-08-26 16:48 | NURSING ---
Pt c/o of bladder feeling full and painful pt bladder scanned for 974ml pt tried to void and was unsuccessful. Dr. Alcantara updated and new order to straight cath and continue voiding trials if pt is >500ml replace fagan cath. Pt straight cath using sterile technique for 975ml of clear yellow and normal odor. Pt tolerated well will continue with voiding trails. Pt voice relief. Call light within reach.
--- NOTE | 2021-08-26 18:01 | NURSING ---
Pt and family notified of staff member and another pt testing positive for covid.
[2021-08-26 18:29] VITALS: BP 122/79; BP 131/91; PULSE 104; PULSE 118
--- NOTE | 2021-08-26 19:29 | NURSING ---
Pt bladder scanned for 650ml. [place] reinserted using sterile technique pt draining clear yellow urine.
[2021-08-27] MEDS: Acetaminophen 500 MG Tablet 1000 MG PO ×3 (01:45→16:59)
[2021-08-27] MEDS: oxyCODONE 5 MG Tablet PO ×3 (01:47→22:16)
[2021-08-27] MEDS: traMADol 50 MG Tablet PO ×2 (04:55→13:16)
[2021-08-27] MEDS: Ascorbic Acid 500 MG Tablet PO (04:55)
[2021-08-27] MEDS: Alendronate Sodium 70 MG Tablet 35 MG PO (04:55)
[2021-08-27] MEDS: Tamsulosin HCl 0.4 MG Capsule PO (04:55)
[2021-08-27] MEDS: Levothyroxine 112 MCG Tablet PO (04:56)
[2021-08-27] MEDS: Senna/Docusate Sodium 1 Tablet 2 TABLET PO ×2 (04:57→17:01)
[2021-08-27] MEDS: Magnesium Chloride 64 MG Delay Rel.Tablet 128 MG PO ×2 (04:57→17:00)
[2021-08-27] MEDS: Pantoprazole Sodium 40 MG Tablet PO (04:57)
[2021-08-27] MEDS: Lidocaine 5% Patch 1 PATCH TOPICAL (05:01)
[2021-08-27] MEDS: Ensure Clear 120 ML Liquid PO ×4 (05:01→22:17)
[2021-08-27] MEDS: Fluticasone 0.05% 1 SPRAY NASAL.SRY 2 SPRAY NASAL (05:02)
[2021-08-27] MEDS: Gabapentin 300 MG Capsule PO ×3 (05:09→22:17)
[2021-08-27 05:11] VITALS: BP 121/74; PULSE 88; RESP 16; TEMP 36.1; O2SAT 95
[2021-08-27] MEDS: Carvedilol 3.125 MG TABLET PO ×2 (07:50→17:00)
[2021-08-27] MEDS: Potassium Chloride Oral Tablet 20 MEQ PO (07:51)
[2021-08-27] MEDS: Hydroxychloroquine 200 MG Tablet PO ×2 (07:51→17:01)
[2021-08-27] MEDS: Ferrous Sulfate 325 MG Tablet PO (11:58)
[2021-08-27 15:44] VITALS: BP 116/63; PULSE 92; RESP 16; TEMP 36.6; O2SAT 94
[2021-08-27 22:00] VITALS: PULSE 84; RESP 16; O2SAT 96
[2021-08-27] MEDS: tiZANidine HCl 2 MG Tablet PO (23:08)
[2021-08-28] MEDS: traMADol 50 MG Tablet PO (01:16)
[2021-08-28] MEDS: oxyCODONE 5 MG Tablet PO ×3 (03:30→22:16)
[2021-08-28] MEDS: Acetaminophen 500 MG Tablet 1000 MG PO ×2 (05:38→17:54)
[2021-08-28] MEDS: Lidocaine 5% Patch 1 PATCH TOPICAL (05:38)
[2021-08-28] MEDS: Gabapentin 300 MG Capsule PO ×3 (05:38→22:16)
[2021-08-28] MEDS: Senna/Docusate Sodium 1 Tablet 2 TABLET PO (05:38)
[2021-08-28] MEDS: Ensure Clear 120 ML Liquid PO ×4 (05:38→22:16)
[2021-08-28] MEDS: Magnesium Chloride 64 MG Delay Rel.Tablet 128 MG PO ×2 (05:38→16:58)
[2021-08-28] MEDS: Fluticasone 0.05% 1 SPRAY NASAL.SRY 2 SPRAY NASAL (05:39)
[2021-08-28] MEDS: Tamsulosin HCl 0.4 MG Capsule PO (05:39)
[2021-08-28] MEDS: Ascorbic Acid 500 MG Tablet PO (05:39)
[2021-08-28] MEDS: Pantoprazole Sodium 40 MG Tablet PO (05:39)
[2021-08-28] MEDS: Levothyroxine 112 MCG Tablet PO (05:39)
[2021-08-28] MEDS: Hydroxychloroquine 200 MG Tablet PO ×2 (07:46→16:58)
[2021-08-28] MEDS: Carvedilol 3.125 MG TABLET PO ×2 (07:46→16:57)
[2021-08-28] MEDS: Potassium Chloride Oral Tablet 20 MEQ PO (07:46)
[2021-08-28 07:48] VITALS: BP 114/70; PULSE 88
[2021-08-28 07:57] VITALS: PULSE 98; RESP 16; O2SAT 92
[2021-08-28] MEDS: Ferrous Sulfate 325 MG Tablet PO (12:26)
[2021-08-28 15:30] VITALS: BP 113/73; PULSE 90; RESP 18; TEMP 36.9; O2SAT 92
--- NOTE | 2021-08-28 17:10 | NURSING ---
pt noted with yellowish, foul smelling liquid stool. dr graham notified, new order cdiff. pt aware. pt placed on special contact isolation
[2021-08-28] MEDS: tiZANidine HCl 2 MG Tablet PO (20:20)
[2021-08-28] MEDS: Menthol/Lanolin/Calamine/Znox 113 GM Tube 1 APPLIC TOPICAL (22:16)
[2021-08-29] MEDS: Magnesium Chloride 64 MG Delay Rel.Tablet 128 MG PO ×2 (04:48→18:22)
[2021-08-29] MEDS: Gabapentin 300 MG Capsule PO ×3 (04:48→21:40)
[2021-08-29] MEDS: Levothyroxine 112 MCG Tablet PO (04:48)
[2021-08-29] MEDS: oxyCODONE 5 MG Tablet PO ×3 (04:48→21:40)
[2021-08-29] MEDS: Pantoprazole Sodium 40 MG Tablet PO (04:49)
[2021-08-29] MEDS: Tamsulosin HCl 0.4 MG Capsule PO (04:49)
[2021-08-29] MEDS: Ensure Clear 120 ML Liquid PO ×4 (04:49→21:40)
[2021-08-29] MEDS: Ascorbic Acid 500 MG Tablet PO (04:49)
[2021-08-29] MEDS: Menthol/Lanolin/Calamine/Znox 113 GM Tube 1 APPLIC TOPICAL ×3 (04:49→21:48)
[2021-08-29] MEDS: Fluticasone 0.05% 1 SPRAY NASAL.SRY 2 SPRAY NASAL (04:50)
[2021-08-29] MEDS: Lidocaine 5% Patch 1 PATCH TOPICAL (04:50)
[2021-08-29] MEDS: Hydroxychloroquine 200 MG Tablet PO ×2 (08:03→18:22)
[2021-08-29] MEDS: Potassium Chloride Oral Tablet 20 MEQ PO (08:03)
[2021-08-29] MEDS: Carvedilol 3.125 MG TABLET PO ×2 (08:03→18:22)
[2021-08-29 08:06] VITALS: BP 113/64; PULSE 96
[2021-08-29] MEDS: Acetaminophen 500 MG Tablet 1000 MG PO (09:03)
--- NOTE | 2021-08-29 09:35 | NURSING ---
Addendum entered by Muriel Her 08/29/21 15:27: Dr. Parham office returned call okay for pt to go to f/u appt. Original Note: Called Dr. Parham office to update on pt's micro results. Left voicemail on Nurse's line awaiting to return call.
--- NOTE | 2021-08-29 11:01 | NURSING ---
Director Of Federal Sales Note: Interview and Section F of MDS complete.
[2021-08-29] MEDS: Ferrous Sulfate 325 MG Tablet PO (11:50)
[2021-08-29] MEDS: Vancomycin 125 MG/5 ML Susp PO.SYRINGE PO ×2 (11:52→18:22)
[2021-08-29 15:50] VITALS: BP 105/67; PULSE 88; RESP 18; TEMP 36.7; O2SAT 95
--- NOTE | 2021-08-29 16:08 | CHAPLAIN ---
Type of Pastoral Visit __x_ Initial Visit ___ Follow-up Visit ___ On-call Visit ___ General Patient Visit ___ Spiritual Assessment ___ Family Conference ___ Bereavement ___ Rapid Response ___ Code Blue ___ Other (describe below) Pastoral Care Referral From _x__ Patient ___ Family ___ Nurse ___ Physician ___ Hand Tire Trimmer ___ Cheese Processor ___ Other (describe below) Sacrament/Intervention _x__ Active listening ___ Anointing ___ Judaism ___ Bereavement ___ Communion ___ Medina exploration ___ _x__ Life review _x__ Prayer ___ Reconciliation ___ Sacrament of Sick _x__ Supportive presence ___ Wedding ___ Other (describe below) Pastoral Comments saty with patient for a time to hear her story of life; pt is now is learning to manage without her spouse; pt reviews her surgery; pt states she does not need anything but does welcome the conversation and a prayer; pt concern is missing her pets
[2021-08-29] MEDS: Senna/Docusate Sodium 1 Tablet 2 TABLET PO (18:22)
[2021-08-29] MEDS: tiZANidine HCl 2 MG Tablet PO (22:44)
[2021-08-29 23:51] VITALS: PULSE 79; RESP 18; O2SAT 97
[2021-08-30] MEDS: traMADol 50 MG Tablet PO ×2 (00:41→18:14)
[2021-08-30] MEDS: Vancomycin 125 MG/5 ML Susp PO.SYRINGE PO ×5 (00:41→22:53)
[2021-08-30] MEDS: oxyCODONE 5 MG Tablet PO ×3 (03:56→14:55)
[2021-08-30 05:58] LABS: Absolute Lymphocyte Count 1.71 X10^3/uL (0.83-4.51); Absolute Neutrophil Count 6.3 X10^3/uL (2.0-7.7); Basophil# 0.05 X10^3/uL; Basophil% 0.5 % (0-1); Eosinophil# 0.47 X10^3/uL; Eosinophils% 4.7 % (0-5); Hematocrit 34.8 % (37-47); Hemoglobin 11.3 g/dL (12.0-15.0); Lymphocyte # 1.71 X10^3/ul (0.83-4.51); Lymphocyte % 17.2 % (19-41); Mean Corp Hgb Conc 32.5 g/dL (32-36); Mean Corpuscular Hgb 30.1 pg (27.0-32.0); Mean Corpuscular Volume 92.8 fL (81-99); Mean Platelet Vol. 8.2 fl (6.2-12.0); Monocyte% 11.1 % (0-10); NRBC Flagged by Analyzer 0 % (0-5); Neutrophil # 6.25 X10^3/uL (2.7-7.7); Neutrophil % 62.9 % (47-70); Platelet Count 413 K/mm3 (150-450); RBC Distribution Width SD 47.5 fl (35.1-43.9); Red Blood Count 3.75 M/mm3 (4.2-5.4); White Blood Count 9.9 K/mm3 (4.4-11.0)
[2021-08-30 06:27] LABS: Anion Gap 7 (5-15); BUN 13 mg/dL (7-18); BUN/Creat Ratio 21.4 RATIO (10-20); Calcium,Total 8.1 mg/dL (8.5-10.1); Chloride 101 mmol/L (98-107); Creatinine, Serum 0.61 mg/dL (0.55-1.02); EST Glomerular Filtration Rate 102 mL/min (>60); Est Glom Filt Rate - Afr Amer 124 mL/min (>60); Estimated Creatinine Clearance 39.63 ml/min; Glucose 124 mg/dL (74-106); Potassium 4.3 mmol/L (3.5-5.1); Sodium Level 133 mmol/L (136-145)
[2021-08-30] MEDS: Levothyroxine 112 MCG Tablet PO (06:55)
[2021-08-30] MEDS: Pantoprazole Sodium 40 MG Tablet PO (06:55)
[2021-08-30] MEDS: Gabapentin 300 MG Capsule PO ×3 (06:55→20:22)
[2021-08-30] MEDS: Ascorbic Acid 500 MG Tablet PO (06:55)
[2021-08-30] MEDS: Magnesium Chloride 64 MG Delay Rel.Tablet 128 MG PO ×2 (06:55→17:24)
[2021-08-30] MEDS: Tamsulosin HCl 0.4 MG Capsule PO (06:55)
[2021-08-30] MEDS: Senna/Docusate Sodium 1 Tablet 2 TABLET PO (06:55)
[2021-08-30] MEDS: Ensure Clear 120 ML Liquid PO (06:56)
[2021-08-30] MEDS: Lidocaine 5% Patch 1 PATCH TOPICAL (06:56)
[2021-08-30] MEDS: Fluticasone 0.05% 1 SPRAY NASAL.SRY 2 SPRAY NASAL (07:00)
[2021-08-30] MEDS: Menthol/Lanolin/Calamine/Znox 113 GM Tube 1 APPLIC TOPICAL ×3 (07:04→20:15)
[2021-08-30] MEDS: Hydroxychloroquine 200 MG Tablet PO ×2 (08:15→17:22)
[2021-08-30] MEDS: Potassium Chloride Oral Tablet 20 MEQ PO (08:15)
[2021-08-30] MEDS: Carvedilol 3.125 MG TABLET PO ×2 (08:15→17:21)
[2021-08-30 08:18] VITALS: BP 104/70; PULSE 102
[2021-08-30 10:00] VITALS: PULSE 96; RESP 18; O2SAT 98
[2021-08-30] MEDS: Ferrous Sulfate 325 MG Tablet PO (12:44)
[2021-08-30] MEDS: Tuberculin,Purif.prot.deriv. 50 TU/ML Vial 0.1 ML ID (12:44)
[2021-08-30 17:30] VITALS: BP 98/67; PULSE 89; RESP 16; TEMP 36.5
[2021-08-30] MEDS: Acetaminophen 500 MG Tablet 1000 MG PO (22:53)
[2021-08-31] MEDS: Levothyroxine 112 MCG Tablet PO (04:48)
[2021-08-31] MEDS: Pantoprazole Sodium 40 MG Tablet PO (04:48)
[2021-08-31] MEDS: Vancomycin 125 MG/5 ML Susp PO.SYRINGE PO ×4 (04:48→23:47)
[2021-08-31] MEDS: Senna/Docusate Sodium 1 Tablet 2 TABLET PO ×2 (04:48→16:49)
[2021-08-31] MEDS: Ascorbic Acid 500 MG Tablet PO (04:48)
[2021-08-31] MEDS: Lidocaine 5% Patch 1 PATCH TOPICAL (04:49)
[2021-08-31] MEDS: Gabapentin 300 MG Capsule PO ×3 (04:49→21:56)
[2021-08-31] MEDS: Acetaminophen 500 MG Tablet 1000 MG PO ×2 (04:49→20:35)
[2021-08-31] MEDS: Tamsulosin HCl 0.4 MG Capsule PO (04:49)
[2021-08-31] MEDS: Magnesium Chloride 64 MG Delay Rel.Tablet 128 MG PO ×2 (04:49→16:59)
[2021-08-31] MEDS: Menthol/Lanolin/Calamine/Znox 113 GM Tube 1 APPLIC TOPICAL ×3 (04:50→22:17)
[2021-08-31] MEDS: Ensure Clear 120 ML Liquid PO ×3 (04:50→21:55)
[2021-08-31] MEDS: Fluticasone 0.05% 1 SPRAY NASAL.SRY 2 SPRAY NASAL (04:51)
[2021-08-31] MEDS: oxyCODONE 5 MG Tablet PO ×3 (06:38→20:33)
--- NOTE | 2021-08-31 08:11 | NURSING ---
ALL CARE GIVEN IN ROOM DUE TO PT IN PRECAUTIONS FOR C-DIFF.
[2021-08-31] MEDS: Hydroxychloroquine 200 MG Tablet PO ×2 (08:15→16:46)
[2021-08-31] MEDS: Carvedilol 3.125 MG TABLET PO ×2 (08:15→16:47)
[2021-08-31] MEDS: Potassium Chloride Oral Tablet 20 MEQ PO (08:15)
[2021-08-31 08:17] VITALS: BP 120/74; PULSE 98
--- NOTE | 2021-08-31 08:46 | CASEMGMT ---
Social Work IDT met with patient and dtr via conference call for care plan meeting. Discussed patient's progress in PT/OT and nursing. Pt making progress. Explained [facility] [place] with [place] 09/02 and continued stay is not guaranteed. Explained and provided insurance care plan with [facility] 09/08. Pt lives in split level home alone with 6 steps to enter the home. Pt uses x2 assist and x1 to move leg forward. Broached topic of having alternative DC plan. Pt/dtr agrees. Discussed SNF and financial liability. Pt prefers [facility]. Pt inquired about [employer] secondary insurance. SW offered to refer to facilities and run benefits, however, [facility] not [facility]. Provided SNF list with quality and resource data - noted [facility] and [facility] network with [facility]. Pt agreeable to [facility] as well. SW to make referrals. Pt is over resources to currently qualify for Medicaid. Pt will discuss with and dtr if she wants to spend money on SNF stay and if not, what would be the plan. SW to continue to follow. Mirian Juares, REPAIRER COMMERCIAL DEVELOPMENT MANAGER
[2021-08-31] MEDS: traMADol 50 MG Tablet PO (10:09)
--- NOTE | 2021-08-31 10:14 | NURSING ---
PT LEFT BY TRANSPORT ON COT TO APPOINTMENT IN [place] AT 1010 AM.
--- NOTE | 2021-08-31 13:31 | NURSING ---
PT RETURNED BY TRANSPORT FROM APPOINTMENT IN [place] BY COT AT 1330.
[2021-08-31] MEDS: Ferrous Sulfate 325 MG Tablet PO (13:54)
--- NOTE | 2021-08-31 13:58 | NURSING ---
Pt returned from appt with Dr. Parham. New Order to apply Betadine to surgical incision twice a day. Okay for pt to shower do not scrub surgical Incision. Pt is to return in 1 week for suture removal. Called Dr. Parham office to see if we would be able to remove sutures here. Spoke with Alexa and she will message Doctor.
[2021-08-31 15:08] VITALS: BP 106/68; PULSE 96; RESP 18; TEMP 36.3; O2SAT 95
[2021-08-31] MEDS: tiZANidine HCl 2 MG Tablet PO (16:46)
[2021-08-31] MEDS: ALPRAZolam 0.25 MG Tablet PO (20:34)
--- NOTE | 2021-08-31 20:34 | NURSING ---
Patient requests melatonin for sleep, notified of request via telephone, new order received for Melatonin 6mg QHS for sleep
[2021-08-31] MEDS: Povidone-Iodine Swabstick 1 PACKET TOPICAL (21:55)
[2021-08-31] MEDS: MELATONIN 3 MG TABLET 6 MG PO (21:56)
[2021-08-31 22:00] VITALS: PULSE 84; RESP 16; O2SAT 94
[2021-09-01] MEDS: oxyCODONE 5 MG Tablet PO ×3 (02:57→22:07)
[2021-09-01] MEDS: Acetaminophen 500 MG Tablet 1000 MG PO ×2 (03:51→18:12)
[2021-09-01] MEDS: tiZANidine HCl 2 MG Tablet PO (03:51)
[2021-09-01] MEDS: traMADol 50 MG Tablet PO (04:27)
[2021-09-01] MEDS: Ensure Clear 120 ML Liquid PO ×4 (05:46→22:08)
[2021-09-01] MEDS: Vancomycin 125 MG/5 ML Susp PO.SYRINGE PO ×3 (05:46→17:39)
[2021-09-01] MEDS: Magnesium Chloride 64 MG Delay Rel.Tablet 128 MG PO ×2 (05:46→17:39)
[2021-09-01] MEDS: Lidocaine 5% Patch 1 PATCH TOPICAL (05:46)
[2021-09-01] MEDS: Gabapentin 300 MG Capsule PO ×3 (05:46→22:07)
[2021-09-01] MEDS: Levothyroxine 112 MCG Tablet PO (05:47)
[2021-09-01] MEDS: Menthol/Lanolin/Calamine/Znox 113 GM Tube 1 APPLIC TOPICAL ×3 (05:47→22:12)
[2021-09-01] MEDS: Pantoprazole Sodium 40 MG Tablet PO (05:47)
[2021-09-01] MEDS: Fluticasone 0.05% 1 SPRAY NASAL.SRY 2 SPRAY NASAL (05:47)
[2021-09-01] MEDS: Tamsulosin HCl 0.4 MG Capsule PO (05:47)
[2021-09-01] MEDS: Ascorbic Acid 500 MG Tablet PO (05:47)
[2021-09-01] MEDS: Senna/Docusate Sodium 1 Tablet 2 TABLET PO (05:48)
[2021-09-01] MEDS: Potassium Chloride Oral Tablet 20 MEQ PO (08:45)
[2021-09-01] MEDS: Carvedilol 3.125 MG TABLET PO ×2 (08:45→17:39)
[2021-09-01] MEDS: Povidone-Iodine Swabstick 1 PACKET TOPICAL ×2 (08:45→22:11)
[2021-09-01] MEDS: Hydroxychloroquine 200 MG Tablet PO ×2 (08:45→17:39)
--- NOTE | 2021-09-01 08:55 | MDS.RN ---
Information for the mds was obtained from review of the clinical record, interview of resident, staff, and direct observation of resident's care.
[2021-09-01 08:57] VITALS: BP 96/69; PULSE 97
[2021-09-01] MEDS: Ferrous Sulfate 325 MG Tablet PO (11:25)
[2021-09-01 11:33] VITALS: PULSE 84; RESP 16; O2SAT 94
--- NOTE | 2021-09-01 13:40 | CASEMGMT ---
Social Work Referrals made to [facility]. Mirian Juares, HOT WOUND SPRING PRODUCTION SUPERVISOR OFFAL ROLLER
[2021-09-01 13:42] VITALS: BP 130/76; PULSE 78; RESP 18; TEMP 36.7; O2SAT 98
[2021-09-01] MEDS: MELATONIN 3 MG TABLET 6 MG PO (22:08)
[2021-09-02] MEDS: traMADol 50 MG Tablet PO (00:03)
[2021-09-02] MEDS: Vancomycin 125 MG/5 ML Susp PO.SYRINGE PO ×4 (00:14→17:16)
[2021-09-02] MEDS: tiZANidine HCl 2 MG Tablet PO ×3 (02:34→23:01)
[2021-09-02] MEDS: oxyCODONE 5 MG Tablet PO ×4 (03:42→22:00)
[2021-09-02] MEDS: Tamsulosin HCl 0.4 MG Capsule PO (06:03)
[2021-09-02] MEDS: Gabapentin 300 MG Capsule PO ×3 (06:03→22:00)
[2021-09-02] MEDS: Ascorbic Acid 500 MG Tablet PO (06:03)
[2021-09-02] MEDS: Lidocaine 5% Patch 1 PATCH TOPICAL (06:03)
[2021-09-02] MEDS: Magnesium Chloride 64 MG Delay Rel.Tablet 128 MG PO ×2 (06:03→17:15)
[2021-09-02] MEDS: Pantoprazole Sodium 40 MG Tablet PO (06:03)
[2021-09-02] MEDS: Fluticasone 0.05% 1 SPRAY NASAL.SRY 2 SPRAY NASAL (06:04)
[2021-09-02] MEDS: Levothyroxine 112 MCG Tablet PO (06:04)
[2021-09-02] MEDS: Menthol/Lanolin/Calamine/Znox 113 GM Tube 1 APPLIC TOPICAL ×3 (06:10→22:01)
[2021-09-02] MEDS: Potassium Chloride Oral Tablet 20 MEQ PO (08:04)
[2021-09-02] MEDS: Hydroxychloroquine 200 MG Tablet PO ×2 (08:04→17:15)
[2021-09-02] MEDS: Acetaminophen 500 MG Tablet 1000 MG PO (08:05)
[2021-09-02 08:07] VITALS: BP 111/68; PULSE 92
[2021-09-02] MEDS: Carvedilol 3.125 MG TABLET PO ×2 (08:59→17:15)
[2021-09-02] MEDS: Povidone-Iodine Swabstick 1 PACKET TOPICAL ×2 (09:28→22:01)
[2021-09-02] MEDS: Ensure Clear 120 ML Liquid PO ×3 (11:13→22:05)
[2021-09-02] MEDS: Ferrous Sulfate 325 MG Tablet PO (11:13)
[2021-09-02 14:10] VITALS: BP 101/65; PULSE 89; RESP 18; TEMP 36.8; O2SAT 91
--- NOTE | 2021-09-02 15:01 | CASEMGMT ---
Social Work Left messages with [facility] on referrals. Will await return phone call. DONNA SanchezW
[2021-09-02 22:00] VITALS: PULSE 75; RESP 14; O2SAT 97
[2021-09-02] MEDS: MELATONIN 3 MG TABLET 6 MG PO (22:03)
[2021-09-03] MEDS: Vancomycin 125 MG/5 ML Susp PO.SYRINGE PO ×4 (00:14→16:54)
[2021-09-03] MEDS: traMADol 50 MG Tablet PO (00:21)
[2021-09-03] MEDS: Alendronate Sodium 70 MG Tablet 35 MG PO (06:04)
[2021-09-03] MEDS: Lidocaine 5% Patch 1 PATCH TOPICAL (06:06)
[2021-09-03] MEDS: Menthol/Lanolin/Calamine/Znox 113 GM Tube 1 APPLIC TOPICAL ×3 (06:43→22:52)
[2021-09-03] MEDS: oxyCODONE 5 MG Tablet PO (06:43)
[2021-09-03] MEDS: Ensure Clear 120 ML Liquid PO ×3 (06:49→16:06)
[2021-09-03] MEDS: Magnesium Chloride 64 MG Delay Rel.Tablet 128 MG PO ×2 (06:50→16:54)
[2021-09-03] MEDS: Pantoprazole Sodium 40 MG Tablet PO (06:50)
[2021-09-03] MEDS: Tamsulosin HCl 0.4 MG Capsule PO (06:50)
[2021-09-03] MEDS: Fluticasone 0.05% 1 SPRAY NASAL.SRY 2 SPRAY NASAL (06:50)
[2021-09-03] MEDS: Gabapentin 300 MG Capsule PO ×3 (06:51→22:51)
[2021-09-03] MEDS: Ascorbic Acid 500 MG Tablet PO (06:51)
[2021-09-03] MEDS: Levothyroxine 112 MCG Tablet PO (06:52)
[2021-09-03] MEDS: Carvedilol 3.125 MG TABLET PO ×2 (08:03→16:56)
[2021-09-03] MEDS: Potassium Chloride Oral Tablet 20 MEQ PO (08:03)
[2021-09-03] MEDS: Hydroxychloroquine 200 MG Tablet PO ×2 (08:03→16:06)
[2021-09-03] MEDS: tiZANidine HCl 2 MG Tablet PO (08:04)
[2021-09-03 10:00] VITALS: O2SAT 96
[2021-09-03] MEDS: Ferrous Sulfate 325 MG Tablet PO (11:11)
[2021-09-03] MEDS: Povidone-Iodine Swabstick 1 PACKET TOPICAL ×2 (11:11→22:51)
[2021-09-03] MEDS: Acetaminophen 500 MG Tablet 1000 MG PO (16:02)
[2021-09-03 16:19] VITALS: BP 91/64; PULSE 94; RESP 18; TEMP 36.7; O2SAT 91
[2021-09-03 17:04] VITALS: BP 120/54; PULSE 97
[2021-09-03] MEDS: MELATONIN 3 MG TABLET 6 MG PO (22:51)
[2021-09-04] MEDS: Vancomycin 125 MG/5 ML Susp PO.SYRINGE PO ×4 (00:55→17:25)
[2021-09-04] MEDS: Acetaminophen 500 MG Tablet 1000 MG PO ×3 (01:01→20:16)
[2021-09-04] MEDS: tiZANidine HCl 2 MG Tablet PO (02:47)
[2021-09-04] MEDS: Menthol/Lanolin/Calamine/Znox 113 GM Tube 1 APPLIC TOPICAL ×3 (05:37→23:00)
[2021-09-04] MEDS: Ensure Clear 120 ML Liquid PO ×4 (05:38→20:15)
[2021-09-04] MEDS: Magnesium Chloride 64 MG Delay Rel.Tablet 128 MG PO ×2 (05:39→17:25)
[2021-09-04] MEDS: Ascorbic Acid 500 MG Tablet PO (05:40)
[2021-09-04] MEDS: Gabapentin 300 MG Capsule PO ×3 (05:40→20:16)
[2021-09-04] MEDS: Tamsulosin HCl 0.4 MG Capsule PO (05:40)
[2021-09-04] MEDS: Levothyroxine 112 MCG Tablet PO (05:40)
[2021-09-04] MEDS: Pantoprazole Sodium 40 MG Tablet PO (05:40)
[2021-09-04] MEDS: Lidocaine 5% Patch 1 PATCH TOPICAL (05:41)
[2021-09-04 05:46] VITALS: BP 109/69; PULSE 88
[2021-09-04] MEDS: Fluticasone 0.05% 1 SPRAY NASAL.SRY 2 SPRAY NASAL (05:47)
[2021-09-04] MEDS: Potassium Chloride Oral Tablet 20 MEQ PO (07:47)
[2021-09-04] MEDS: Hydroxychloroquine 200 MG Tablet PO ×2 (07:47→17:25)
[2021-09-04] MEDS: Carvedilol 3.125 MG TABLET PO ×2 (07:55→17:25)
[2021-09-04] MEDS: oxyCODONE 5 MG Tablet PO (08:00)
[2021-09-04] MEDS: Ferrous Sulfate 325 MG Tablet PO (11:16)
[2021-09-04] MEDS: Povidone-Iodine Swabstick 1 PACKET TOPICAL ×2 (11:18→20:28)
[2021-09-04 16:00] VITALS: BP 104/67; PULSE 93; RESP 16; TEMP 36.5; O2SAT 96
[2021-09-04] MEDS: MELATONIN 3 MG TABLET 6 MG PO (20:16)
[2021-09-04 22:15] VITALS: PULSE 97; RESP 18; O2SAT 95
[2021-09-05] MEDS: Vancomycin 125 MG/5 ML Susp PO.SYRINGE PO ×4 (00:04→17:46)
[2021-09-05] MEDS: oxyCODONE 5 MG Tablet PO ×3 (03:13→21:48)
[2021-09-05] MEDS: Ensure Clear 120 ML Liquid PO ×4 (05:06→21:42)
[2021-09-05] MEDS: Tamsulosin HCl 0.4 MG Capsule PO (05:07)
[2021-09-05] MEDS: Magnesium Chloride 64 MG Delay Rel.Tablet 128 MG PO ×2 (05:07→17:44)
[2021-09-05] MEDS: Pantoprazole Sodium 40 MG Tablet PO (05:07)
[2021-09-05] MEDS: Ascorbic Acid 500 MG Tablet PO (05:07)
[2021-09-05] MEDS: Levothyroxine 112 MCG Tablet PO (05:07)
[2021-09-05] MEDS: Fluticasone 0.05% 1 SPRAY NASAL.SRY 2 SPRAY NASAL (05:10)
[2021-09-05] MEDS: Gabapentin 300 MG Capsule PO ×3 (05:15→21:41)
[2021-09-05] MEDS: Lidocaine 5% Patch 1 PATCH TOPICAL (05:16)
[2021-09-05] MEDS: Menthol/Lanolin/Calamine/Znox 113 GM Tube 1 APPLIC TOPICAL ×3 (05:20→21:56)
[2021-09-05] MEDS: Acetaminophen 500 MG Tablet 1000 MG PO (06:23)
[2021-09-05] MEDS: Hydroxychloroquine 200 MG Tablet PO ×2 (08:11→17:44)
[2021-09-05] MEDS: Carvedilol 3.125 MG TABLET PO ×2 (08:11→17:44)
[2021-09-05] MEDS: Potassium Chloride Oral Tablet 20 MEQ PO (08:11)
[2021-09-05 08:21] VITALS: BP 104/63; PULSE 96
[2021-09-05] MEDS: Ferrous Sulfate 325 MG Tablet PO (11:22)
[2021-09-05] MEDS: Povidone-Iodine Swabstick 1 PACKET TOPICAL ×2 (11:22→21:39)
[2021-09-05 13:45] VITALS: BP 130/71; PULSE 96; RESP 18; TEMP 36.1; O2SAT 96
[2021-09-05 17:54] VITALS: BP 100/69; PULSE 95
[2021-09-05] MEDS: MELATONIN 3 MG TABLET 6 MG PO (21:39)
[2021-09-06] MEDS: traMADol 50 MG Tablet PO ×2 (00:13→12:38)
[2021-09-06] MEDS: Vancomycin 125 MG/5 ML Susp PO.SYRINGE PO ×4 (00:25→17:46)
[2021-09-06] MEDS: Magnesium Chloride 64 MG Delay Rel.Tablet 128 MG PO ×2 (05:09→17:46)
[2021-09-06] MEDS: Tamsulosin HCl 0.4 MG Capsule PO (05:09)
[2021-09-06] MEDS: Gabapentin 300 MG Capsule PO ×3 (05:09→20:50)
[2021-09-06] MEDS: Pantoprazole Sodium 40 MG Tablet PO (05:09)
[2021-09-06] MEDS: Levothyroxine 112 MCG Tablet PO (05:09)
[2021-09-06] MEDS: Ascorbic Acid 500 MG Tablet PO (05:09)
[2021-09-06] MEDS: Lidocaine 5% Patch 1 PATCH TOPICAL (05:09)
[2021-09-06] MEDS: Ensure Clear 120 ML Liquid PO ×4 (05:11→20:48)
[2021-09-06] MEDS: oxyCODONE 5 MG Tablet PO ×3 (05:12→20:51)
[2021-09-06] MEDS: Menthol/Lanolin/Calamine/Znox 113 GM Tube 1 APPLIC TOPICAL ×3 (05:21→20:54)
[2021-09-06] MEDS: Fluticasone 0.05% 1 SPRAY NASAL.SRY 2 SPRAY NASAL (05:24)
[2021-09-06 06:00] LABS: Absolute Lymphocyte Count 1.61 X10^3/uL (0.83-4.51); Absolute Neutrophil Count 3.9 X10^3/uL (2.0-7.7); Basophil# 0.06 X10^3/uL; Basophil% 0.9 % (0-1); Eosinophil# 0.27 X10^3/uL; Hematocrit 35.6 % (37-47); Hemoglobin 11.6 g/dL (12.0-15.0); Lymphocyte # 1.61 X10^3/ul (0.83-4.51); Mean Corp Hgb Conc 32.6 g/dL (32-36); Mean Corpuscular Hgb 30.8 pg (27.0-32.0); Mean Corpuscular Volume 94.4 fL (81-99); Mean Platelet Vol. 8.3 fl (6.2-12.0); Monocyte# 0.82 X10^3/uL; Monocyte% 12.2 % (0-10); NRBC Flagged by Analyzer 0 % (0-5); Neutrophil # 3.87 X10^3/uL (2.7-7.7); Neutrophil % 57.9 % (47-70); Platelet Count 322 K/mm3 (150-450); RBC Distribution Width CV 14.2 % (11.6-14.6); RBC Distribution Width SD 48.8 fl (35.1-43.9); Red Blood Count 3.77 M/mm3 (4.2-5.4); White Blood Count 6.7 K/mm3 (4.4-11.0)
[2021-09-06 06:39] LABS: Anion Gap 5 (5-15); BUN 17 mg/dL (7-18); BUN/Creat Ratio 26.1 RATIO (10-20); Calcium,Total 8.4 mg/dL (8.5-10.1); Chloride 104 mmol/L (98-107); Creatinine, Serum 0.65 mg/dL (0.55-1.02); EST Glomerular Filtration Rate 94 mL/min (>60); Est Glom Filt Rate - Afr Amer 114 mL/min (>60); Estimated Creatinine Clearance 39.63 ml/min; Glucose 97 mg/dL (74-106); Potassium 4.6 mmol/L (3.5-5.1); Sodium Level 136 mmol/L (136-145)
[2021-09-06] MEDS: Carvedilol 3.125 MG TABLET PO ×2 (09:09→17:46)
[2021-09-06] MEDS: Povidone-Iodine Swabstick 1 PACKET TOPICAL ×2 (09:09→20:53)
[2021-09-06] MEDS: Potassium Chloride Oral Tablet 20 MEQ PO (09:09)
[2021-09-06] MEDS: Hydroxychloroquine 200 MG Tablet PO ×2 (09:09→17:46)
[2021-09-06 10:59] VITALS: PULSE 83; RESP 20; TEMP 36.4; O2SAT 92
[2021-09-06] MEDS: Ferrous Sulfate 325 MG Tablet PO (12:24)
[2021-09-06] MEDS: Acetaminophen 500 MG Tablet 1000 MG PO ×2 (12:37→20:52)
[2021-09-06 13:38] VITALS: BP 91/65
--- NOTE | 2021-09-06 14:39 | CASEMGMT ---
Addendum entered by Mirian Juares 09/06/21 16:52: Pt called this worker to inquire about why this worker was speaking with dtr about her insurance. Explained SW attempted to speak with pt today and unsuccessful. Pt had given SW permission to discuss DC plans with dtr; SW was following up with dtr from POC last week. Pt did not recall having POC last week. Explained below information about [facility] not covering room and board, it would be private pay. Revisited financial questions. Pt confirmed she has a life insurance policy that she intends to use on a burial; she has no savings account, and gets SS income and 's pension monthly, but could not recall amount. SW explained pt can make life insurance irrevocable to the home to pay for the burial, and apply for [place] for [place] to cover SNF stay. Pt agrees, but then states this is all too much information; I can't remember all of this; you're going to need to talk to my daughter about this. SW agreed and reminded pt that is why this worker contacted the dtr. Pt repeated that her memory is poor. ST order entered to assess cognition, as pt also could not recall POC meeting and these same conversations with SW and dtr last week. Contacted dtr and updated SW spoke with pt and pt agreeable for dtr assistance. Explained for dtr to contact home of choice and life insurance company to complete the transfer. SW emailed dtr [employer] application to complete. Explained pt may need QIT if over income, but that will be determined by [facility] CM/SNF. Explained pt will need MCDP# to admit to SNF, if SNF accepts MCDP# due to financial liability. Dtr expressed understanding and appreciative of SW assistance. Contacted [facility] to update on finances and if pt can admit with MCDP# - they can accept. SW to continue to follow. Insurance NRD 09/07. Addendum entered by Mirian Juares 09/06/21 15:33: Received return call from dtr. Answered questions for dtr and brother on phone as well. Dtr is unsure of pt's finances. Explained liquidating assets to qualify for [place] and using those funds to pay privately for SNF. Provided dtr with [facility] room rates. Explained insurance update is 09/07 and continued stay is not guaranteed. SW attempted to speak with pt, but unavailable. Dtr and brother are realistic to pt needing SNF as she continues to be x2 assist. SW to continue to follow for DC planning. Original Note: Social Work [place] asking additional questions on referral. Spoke with [facility] and stated VA will not pay for room and board, but can accept if pt can pay privately. Left message with dtr updating. Mirian Juares, MOLD CLOSER HELPER ZIPPER CUTTER
[2021-09-06 20:40] VITALS: BP 101/70; PULSE 77; RESP 16; TEMP 36.2; O2SAT 96
[2021-09-06] MEDS: MELATONIN 3 MG TABLET 6 MG PO (20:49)
[2021-09-06] MEDS: tiZANidine HCl 2 MG Tablet PO (23:19)
[2021-09-07] MEDS: Vancomycin 125 MG/5 ML Susp PO.SYRINGE PO ×4 (00:14→18:26)
[2021-09-07] MEDS: Gabapentin 300 MG Capsule PO ×3 (04:31→21:14)
[2021-09-07] MEDS: Magnesium Chloride 64 MG Delay Rel.Tablet 128 MG PO ×2 (04:31→18:26)
[2021-09-07] MEDS: Levothyroxine 112 MCG Tablet PO (04:31)
[2021-09-07] MEDS: Acetaminophen 500 MG Tablet 1000 MG PO ×2 (04:32→16:03)
[2021-09-07] MEDS: Pantoprazole Sodium 40 MG Tablet PO (04:32)
[2021-09-07] MEDS: Ascorbic Acid 500 MG Tablet PO (04:32)
--- NOTE | 2021-09-07 04:32 | NURSING ---
Addendum entered by Arvind Cedillo 09/07/21 07:33: Deny RN notified of need for f/u appt with Dr. Parham scheduled and notified of surgical incision. Original Note: DATA RECOVERY PLANNER requests this nurse assess back surgical incision, increased redness noted with apparent area of slough to mid surgical site, sutures in place, no heat, no edema, no active drainage. written communication left for Dr. Alcantara regarding change to surgical site and request if would like wound culture obtained. Patient to have f/u with Dr. Parham scheduled this week by community relations liaison. Voicemail left for wound nurse requesting surgical site be assessed until patient can present to Dr. Parham for follow-up appointment. Betadine in place per order.
[2021-09-07] MEDS: Ensure Clear 120 ML Liquid PO ×4 (04:33→21:16)
[2021-09-07] MEDS: Tamsulosin HCl 0.4 MG Capsule PO (04:33)
[2021-09-07] MEDS: oxyCODONE 5 MG Tablet PO (04:33)
[2021-09-07] MEDS: Menthol/Lanolin/Calamine/Znox 113 GM Tube 1 APPLIC TOPICAL ×3 (04:34→22:10)
[2021-09-07] MEDS: Fluticasone 0.05% 1 SPRAY NASAL.SRY 2 SPRAY NASAL (04:34)
[2021-09-07] MEDS: Lidocaine 5% Patch 1 PATCH TOPICAL (04:35)
[2021-09-07 04:53] VITALS: BP 99/66; PULSE 81; RESP 16; TEMP 36.3; O2SAT 97
[2021-09-07] MEDS: traMADol 50 MG Tablet PO (06:41)
[2021-09-07] MEDS: Hydroxychloroquine 200 MG Tablet PO ×2 (08:12→18:27)
[2021-09-07] MEDS: Potassium Chloride Oral Tablet 20 MEQ PO (08:12)
[2021-09-07] MEDS: Carvedilol 3.125 MG TABLET PO (08:18)
[2021-09-07] MEDS: Povidone-Iodine Swabstick 1 PACKET TOPICAL ×2 (08:18→21:14)
--- NOTE | 2021-09-07 11:30 | CASEMGMT ---
Social Work Insurance issued LCD 09/09, DC 09/10. Updated pt and dtr. The plan is for pt to DC nonskilled to [facility]. Updated [facility] - requesting LOC. DORIS completed PASRR. SW scheduled cot transport through [facility] for 11 am. Dtr completing [facility] rosana. Plan: DC 09/10 to [facility], nonskilled, part B therapies Mirian Juares, DONNA GARZAW
[2021-09-07] MEDS: Ferrous Sulfate 325 MG Tablet PO (12:24)
[2021-09-07 12:26] VITALS: PULSE 84; RESP 20; TEMP 35.9; O2SAT 94
[2021-09-07 13:41] VITALS: BP 114/69
--- NOTE | 2021-09-07 13:42 | WOUNDNOTE ---
wound photo: back
[2021-09-07 18:36] VITALS: BP 98/57; PULSE 99
--- NOTE | 2021-09-07 19:57 | PCM.DC.SUM ---
Providers Date of Admission: 08/22/21 Primary Care Physician: Dr. Stalin Wang MD Reason For Visit: SPINE SURGERY Diagnosis Discharge Diagnosis (1) Debility: Status: Acute Code(s): R53.81 - Other malaise (2) Lumbar spinal stenosis: Status: Acute Code(s): M48.061 - Spinal stenosis, lumbar region without neurogenic claudication (3) Rheumatoid arthritis: Status: Acute Code(s): M06.9 - Rheumatoid arthritis, unspecified (4) Gastroesophageal reflux disease: Status: Acute Code(s): K21.9 - Gastro-esophageal reflux disease without esophagitis (5) Fibromyalgia: Status: Acute Code(s): M79.7 - Fibromyalgia (6) Hyperlipidemia: Status: Acute Code(s): E78.5 - Hyperlipidemia, unspecified (7) Low back pain: Status: Acute Code(s): M54.50 - Low back pain, unspecified (8) Chronic pain: Status: Chronic Code(s): G89.29 - Other chronic pain (9) Hypertension: Status: Chronic Code(s): I10 - Essential (primary) hypertension Medications at Discharge Home Medications ascorbic acid (vitamin C) 500 mg capsule 500 mg PO QDAY ea 04/14/17 gabapentin 300 mg capsule 300 mg PO Q8H 30 Days #90 cap 04/14/17 multivitamin,do-befq-qgscgarl 1 tab PO QDAY 04/14/17 potassium gluconate 595 mg (99 mg) tablet 595 mg PO QDAY tab 04/14/17 selenium 200 mcg capsule 200 mcg PO QDAY 04/14/17 pantoprazole 40 mg tablet,delayed release 40 mg PO DAILY 12/07/17 prednisone 10 mg tablet 10 mg PO DAILY PRN PRN 30 Days tab 03/04/18 hydroxychloroquine 200 mg tablet 200 mg PO BID 01/23/19 levothyroxine 112 mcg tablet 112 mcg PO DAILY 01/23/19 magnesium 200 mg tablet 400 mg PO DAILY tab 01/23/19 mecobalamin (vitamin B12) 1,000 mcg disintegrating tablet,sublingual 1,000 mcg SUBLINGUAL DAILY 01/23/19 meloxicam 7.5 mg PO BID #60 tab 03/28/19 carvedilol 3.125 mg tablet 3.125 mg PO BID #180 tab 10/13/20 acetaminophen 650 mg PO Q4H PRN 08/22/21 adalimumab [Humira] 40 mg SUBCUT QWEEK 08/22/21 alendronate 35 mg PO QWEEK 08/22/21 bisacodyl [Dulcolax (bisacodyl)] 10 mg MS DAILY PRN PRN 08/22/21 docusate sodium [Colace] 100 mg PO BID 08/22/21 ferrous sulfate 325 mg PO DAILY 08/22/21 fluticasone propionate [Flonase] 2 spray INTRANASAL DAILY 08/22/21 heparin (porcine) 5,000 unit SUBCUT Q8H 08/22/21 lidocaine [Lidoderm] 1 patch TOPICAL DAILY 08/22/21 magnesium hydroxide 30 ml PO Q8H PRN 08/22/21 magnesium oxide 400 mg PO BID 08/22/21 oxycodone [OxyIR] 5 mg PO Q6H PRN PRN 08/22/21 sennosides [senna] 8.6 mg PO QHS 08/22/21 tamsulosin [Flomax] 0.4 mg PO DAILY 08/22/21 tizanidine [Zanaflex] 2 mg PO Q8H PRN 08/22/21 Povidone-Iodine Swabstick [Betadine Swabstick] 1 packet TOPICAL 1000,2200 #0 09/07/21 acetaminophen 1,000 mg PO Q6H PRN PRN #0 tab 09/07/21 melatonin 6 mg PO QHS #0 tab 09/07/21 menthol-zinc oxide [Calmoseptine] 1 applic TOPICAL TID #0 g 09/07/21 oxycodone 5 mg PO Q4H PRN PRN 3 Days #18 tab 09/07/21 potassium chloride [Klor-Con M20] 20 meq PO DAILYCM #0 tab 09/07/21 tramadol 50 mg PO Q6H PRN PRN 3 Days #12 tab 09/07/21 Hospital Course Operations - (Back surgery.) Procedures None Summary of Care Provided Minutes Spent on Discharge: 35 Hospital Course: 75 year old female with below past medical history underwent removal of hardware, T10 to pelvis instrumented fusion, L1-L3 decompression, primary repair of durotomy 08/15/2021 per [facility], admitted to TCU with debility, here for rehabilitation, strengthening, prior to discharge home alone. Discharge to [facility] 09/10/2021, non-skilled, part B therapies. Physical Exam Const alert General Appearance: cooperative HEENT normocephalic Eyes PERRL and EOMs intact bilaterally Neck supple, no JVD and no carotid bruits Resp normal respiratory effort, normal air movement and clear to auscultation bilaterally Cardio regular rate and regular rhythm GI normal to inspection, nondistended, normoactive bowel sounds, non-tender and non-distended Extremity normal capillary refill General Extremity: Negative for edema Skin no rashes or lesions noted General Skin Exam: no breakdown Psych affect normal Appearance: appropriate Weight / BMI Weight Weight: 70.307 kg ABG / Lab / Microbiology Data Result Diagrams: 09/06/21 05:21 09/06/21 05:21 Microbiology: Microbiology 09/07/21 08:43 Wound - Back Gram Stain - Final 09/05/21 08:11 Nasal Secretion SARS-CoV-2 Antigen (Rapid) - Final 08/29/21 15:38 Nasal Secretion SARS-CoV-2 Antigen (Rapid) - Final 08/28/21 17:00 Stool C. difficile GDH Antigen & Toxins - Final 08/28/21 17:00 Stool C. difficile DNA Amplification - Final 08/26/21 15:35 Nasal Secretion SARS-CoV-2 Antigen (Rapid) - Final 08/24/21 03:30 Nasal Secretion SARS-CoV-2 Antigen (Rapid) - Final D/C Instructions Discharge Diet: No restrictions Discharge Activity: Return to Normal Activity, May Shower and Use Walker Weight Bearing Status: Weight bearing as tolerated Call your doctor if you observe: Fever of 101 or Higher, Inability to urinate, Inability to have a bowel movement, Shortness of breath, Dizziness, Fainting spells, Swelling in the ankles, Chest pain and Uncontrolled pain Additional Instructions: Discharge to [facility] 09/10/2021, non-skilled, part B therapies. Please Follow Up With: Dr Parham When: As scheduled. Meaningful Use Info Meaningful Use Diagnoses (Choose all that apply): None applicable Discharge Plan Admission Admit Date/Time: 08/22/21 18:07 Primary Reason for Your Visit: Debility. Attending Provider: Yusef Alcantara Chi Primary Care Provider: Stalin Wang Instructions Additional Instructions / Restrictions: Discharge to [facility] 09/10/2021, non-skilled, part B therapies. Discharge Orders/Prescriptions Prescriptions: New acetaminophen 500 mg Tablet 1,000 mg PO Q6H PRN PRN (Reason: Pain Score 1-3) Qty: 0 RF: 0 melatonin 3 mg Tablet 6 mg PO QHS Qty: 0 RF: 0 oxycodone 5 mg Tablet 5 mg PO Q4H PRN PRN (Reason: Pain (Scale Score 6-10)) 3 Days Qty: 18 RF: 0 menthol-zinc oxide [Calmoseptine] 0.44-20.6 % Ointment 1 applic topical TID Qty: 0 RF: 0 tramadol 50 mg Tablet 50 mg PO Q6H PRN PRN (Reason: Pain Score 4-5) 3 Days Qty: 12 RF: 0 potassium chloride [Klor-Con M20] 20 mEq Tablet,Er Particles/Crystals 20 meq PO DAILYCM Qty: 0 RF: 0 Povidone-Iodine Swabstick [Betadine Swabstick] 1 packet topical 1000,2200 Qty: 0 RF: 0 Continued ascorbic acid (vitamin C) 500 mg capsule 500 mg PO QDAY RF: 0 gabapentin 300 mg capsule 300 mg PO Q8H 30 Days Qty: 90 RF: 0 prednisone 10 mg tablet 10 mg PO DAILY PRN PRN (Reason: flare ups RA) 30 Days RF: 0 pantoprazole 40 mg tablet,delayed release (DR/EC) 40 mg PO DAILY RF: 0 levothyroxine 112 mcg tablet 112 mcg PO DAILY RF: 0 hydroxychloroquine 200 mg tablet 200 mg PO BID RF: 0 carvedilol 3.125 mg tablet 3.125 mg PO BID Qty: 180 RF: 3 alendronate 35 mg Tablet 35 mg PO QWEEK RF: 0 tamsulosin [Flomax] 0.4 mg Capsule 0.4 mg PO DAILY RF: 0 bisacodyl [Dulcolax (bisacodyl)] 10 mg Suppository 10 mg MS DAILY PRN PRN (Reason: Constipation) RF: 0 fluticasone propionate [Flonase] 50 mcg/actuation [place],Suspension 2 spray INTRANASAL DAILY RF: 0 ferrous sulfate 325 MG tablet 325 mg PO DAILY RF: 0 tizanidine [Zanaflex] 2 mg Tablet 2 mg PO Q8H PRN (Reason: Pain) RF: 0 lidocaine [Lidoderm] 5 % Adhesive Patch,Medicated 1 patch TOPICAL DAILY RF: 0 magnesium oxide 400 mg magnesium Tablet 400 mg PO BID RF: 0 No Action potassium gluconate 595 mg (99 mg) tablet 595 mg PO QDAY RF: 0 selenium 200 mcg capsule 200 mcg capsule 200 mcg PO QDAY RF: 0 multivitamin,uq-yrfu-tpkqylus tablet tablet 1 tab PO QDAY RF: 0 magnesium 200 mg tablet 400 mg PO DAILY RF: 0 mecobalamin (vitamin B12) 1,000 mcg tablet,disintegrating 1,000 mcg SUBLINGUAL DAILY RF: 0 meloxicam 7.5 MG tablet 7.5 mg PO BID Qty: 60 RF: 0 acetaminophen 650 mg Tablet 650 mg PO Q4H PRN (Reason: Pain) RF: 0 sennosides [senna] 8.6 mg Tablet 8.6 mg PO QHS RF: 0 magnesium hydroxide 400 mg/5 mL Suspension 30 ml PO Q8H PRN (Reason: Constipation) RF: 0 oxycodone [OxyIR] 5 mg Capsule 5 mg PO Q6H PRN PRN (Reason: Pain (Scale Score 6-10)) RF: 0 docusate sodium [Colace] 100 mg Capsule 100 mg PO BID RF: 0 heparin (porcine) 5,000 unit/mL Solution 5,000 unit SUBCUT Q8H RF: 0 Humira 40 mg/0.8 mL Syringe Kit 40 mg SUBCUT QWEEK RF: 0 Referrals / Follow Up: Dr. Parham [Other] - 09/14/21 11:15 am () Stalin Wang MD [Primary Care Provider] - Disposition Disposition (needs filled in before D/C Order can be placed): NonSkilled NH/Intermed Care
--- NOTE | 2021-09-07 20:08 | TREXTCAR_ITS ---
Diet 08/23/21 06:36 Diet: Regular - General Is pt able to select menu?: Yes Diet Comments: small portions per res request and res right Routine Orders/Code [facility]s) left 4th toe abrasion: Wound Type: Abrasion right 4+5th toe abrasion: Wound Type: Abrasion LLE abrasions: Wound Type: Abrasion Midline spinal incision: Wound Type: Surgical Incision Dressing Change: betadine with dry dressing Right mid back surgical site: Wound Type: Surgical Incision Dressing Change: Dry Sterile Dressing Therapies Weight Bearing: Weight bearing as tolerated Extremity Affected:: Bilateral Lower Physical Therapy: Eval and Treat Occupational Therapy: Eval and Treat Problem/Diagnosis (1) Debility: Status: Acute (2) Lumbar spinal stenosis: Status: Acute (3) Rheumatoid arthritis: Status: Acute (4) Gastroesophageal reflux disease: Status: Acute (5) Fibromyalgia: Status: Acute (6) Hyperlipidemia: Status: Acute (7) Low back pain: Status: Acute (8) Chronic pain: Status: Chronic (9) Hypertension: Status: Chronic Allergies/Procedures Done in Hospital Allergies Penicillins [PCN] Allergy (Verified 08/24/21 10:59) Rash Procedures: - (Back surgery.) Type of Care/Length of Stay Estimated LOS: More Than 30 Days Type of Care Needed: Intermediate Rehab Potential: Fair Prognosis: Fair Additional Orders/Day of Discharge Day of Discharge: 09/10/21 Dietary and Speech Recommendations Dietitian Recommendations/Changes: Will continue liberal regular diet as ordered Will continue ensure clear 4 oz 4x/day w/ medpass for increased nutrition if consumed Rec consider Remeron to help encourage increased appetite. Follow Up Care Please Follow Up With: Dr Parham Please Follow Up With: Dr. Parham When: 1 week F/U Discharge Plan Admission Admit Date/Time: 08/22/21 18:07 Primary Reason for Your Visit: Debility. Attending Provider: Yusef Alcantara Chi Primary Care Provider: Stalin Wang Instructions Additional Instructions / Restrictions: Discharge to [facility] 09/10/2021, non-skilled, part B therapies. Discharge Orders/Prescriptions Prescriptions: New acetaminophen 500 mg Tablet 1,000 mg PO Q6H PRN PRN (Reason: Pain Score 1-3) Qty: 0 RF: 0 melatonin 3 mg Tablet 6 mg PO QHS Qty: 0 RF: 0 oxycodone 5 mg Tablet 5 mg PO Q4H PRN PRN (Reason: Pain (Scale Score 6-10)) 3 Days Qty: 18 RF: 0 menthol-zinc oxide [Calmoseptine] 0.44-20.6 % Ointment 1 applic topical TID Qty: 0 RF: 0 tramadol 50 mg Tablet 50 mg PO Q6H PRN PRN (Reason: Pain Score 4-5) 3 Days Qty: 12 RF: 0 potassium chloride [Klor-Con M20] 20 mEq Tablet,Er Particles/Crystals 20 meq PO DAILYCM Qty: 0 RF: 0 Povidone-Iodine Swabstick [Betadine Swabstick] 1 packet topical 1000,2200 Qty: 0 RF: 0 Continued ascorbic acid (vitamin C) 500 mg capsule 500 mg PO QDAY RF: 0 gabapentin 300 mg capsule 300 mg PO Q8H 30 Days Qty: 90 RF: 0 prednisone 10 mg tablet 10 mg PO DAILY PRN PRN (Reason: flare ups RA) 30 Days RF: 0 pantoprazole 40 mg tablet,delayed release (DR/EC) 40 mg PO DAILY RF: 0 levothyroxine 112 mcg tablet 112 mcg PO DAILY RF: 0 hydroxychloroquine 200 mg tablet 200 mg PO BID RF: 0 carvedilol 3.125 mg tablet 3.125 mg PO BID Qty: 180 RF: 3 alendronate 35 mg Tablet 35 mg PO QWEEK RF: 0 tamsulosin [Flomax] 0.4 mg Capsule 0.4 mg PO DAILY RF: 0 bisacodyl [Dulcolax (bisacodyl)] 10 mg Suppository 10 mg PA DAILY PRN PRN (Reason: Constipation) RF: 0 fluticasone propionate [Flonase] 50 mcg/actuation [place],Suspension 2 spray INTRANASAL DAILY RF: 0 ferrous sulfate 325 MG tablet 325 mg PO DAILY RF: 0 tizanidine [Zanaflex] 2 mg Tablet 2 mg PO Q8H PRN (Reason: Pain) RF: 0 lidocaine [Lidoderm] 5 % Adhesive Patch,Medicated 1 patch TOPICAL DAILY RF: 0 magnesium oxide 400 mg magnesium Tablet 400 mg PO BID RF: 0 No Action potassium gluconate 595 mg (99 mg) tablet 595 mg PO QDAY RF: 0 selenium 200 mcg capsule 200 mcg capsule 200 mcg PO QDAY RF: 0 multivitamin,fv-zlbs-zulcormu tablet tablet 1 tab PO QDAY RF: 0 magnesium 200 mg tablet 400 mg PO DAILY RF: 0 mecobalamin (vitamin B12) 1,000 mcg tablet,disintegrating 1,000 mcg SUBLINGUAL DAILY RF: 0 meloxicam 7.5 MG tablet 7.5 mg PO BID Qty: 60 RF: 0 acetaminophen 650 mg Tablet 650 mg PO Q4H PRN (Reason: Pain) RF: 0 sennosides [senna] 8.6 mg Tablet 8.6 mg PO QHS RF: 0 magnesium hydroxide 400 mg/5 mL Suspension 30 ml PO Q8H PRN (Reason: Constipation) RF: 0 oxycodone [OxyIR] 5 mg Capsule 5 mg PO Q6H PRN PRN (Reason: Pain (Scale Score 6-10)) RF: 0 docusate sodium [Colace] 100 mg Capsule 100 mg PO BID RF: 0 heparin (porcine) 5,000 unit/mL Solution 5,000 unit SUBCUT Q8H RF: 0 Humira 40 mg/0.8 mL Syringe Kit 40 mg SUBCUT QWEEK RF: 0 Referrals / Follow Up: Dr. Parham [Other] - 09/14/21 11:15 am () Stalin Wang MD [Primary Care Provider] - Disposition Disposition (needs filled in before D/C Order can be placed): NonSkilled NH/Intermed Care
[2021-09-07] MEDS: MELATONIN 3 MG TABLET 6 MG PO (21:14)
[2021-09-08] MEDS: Vancomycin 125 MG/5 ML Susp PO.SYRINGE PO ×3 (00:35→11:42)
[2021-09-08] MEDS: Acetaminophen 500 MG Tablet 1000 MG PO ×2 (04:01→12:58)
[2021-09-08] MEDS: Gabapentin 300 MG Capsule PO ×3 (05:43→21:53)
[2021-09-08] MEDS: Magnesium Chloride 64 MG Delay Rel.Tablet 128 MG PO ×2 (05:43→17:38)
[2021-09-08] MEDS: Levothyroxine 112 MCG Tablet PO (05:43)
[2021-09-08] MEDS: Pantoprazole Sodium 40 MG Tablet PO (05:43)
[2021-09-08] MEDS: Ascorbic Acid 500 MG Tablet PO (05:43)
[2021-09-08] MEDS: Lidocaine 5% Patch 1 PATCH TOPICAL (05:44)
[2021-09-08] MEDS: Tamsulosin HCl 0.4 MG Capsule PO (05:44)
[2021-09-08] MEDS: Fluticasone 0.05% 1 SPRAY NASAL.SRY 2 SPRAY NASAL (05:51)
[2021-09-08] MEDS: Ensure Clear 120 ML Liquid PO ×4 (05:52→21:52)
[2021-09-08] MEDS: Menthol/Lanolin/Calamine/Znox 113 GM Tube 1 APPLIC TOPICAL ×3 (05:52→21:53)
[2021-09-08] MEDS: Povidone-Iodine Swabstick 1 PACKET TOPICAL (09:24)
[2021-09-08] MEDS: Potassium Chloride Oral Tablet 20 MEQ PO (09:25)
[2021-09-08] MEDS: Carvedilol 3.125 MG TABLET PO ×2 (09:25→17:38)
[2021-09-08] MEDS: Hydroxychloroquine 200 MG Tablet PO ×2 (09:26→17:38)
--- NOTE | 2021-09-08 09:27 | CASEMGMT ---
Social Work Received WESTON rosana. Pt has $127k in an MICHAEL, and $8k in her checking account; receives about $3k/mo in income. Explained to dtr, pt would not currently qualify for [facility]. The MICHAEL will need to be liquidated to spend on the nursing facility and the burial. If pt remains longer than the MICHAEL, pt will need QIT and spend down to her checking account. Updated Shanita at [facility] to contact dtr to discuss pricing/payment. DONNA SanchezW
--- NOTE | 2021-09-08 10:25 | NURSING ---
Resident as well as resident's daughter wali made aware of staff member that tested positive for COVID-19
[2021-09-08] MEDS: Ferrous Sulfate 325 MG Tablet PO (11:42)
[2021-09-08] MEDS: Ondansetron ODT 4 MG Tablet PO (12:53)
[2021-09-08] MEDS: oxyCODONE 5 MG Tablet PO ×3 (12:58→23:53)
[2021-09-08 15:18] VITALS: BP 99/66; PULSE 85; RESP 18; TEMP 36.6; O2SAT 92
[2021-09-08] MEDS: traMADol 50 MG Tablet PO (17:43)
[2021-09-08] MEDS: ALPRAZolam 0.25 MG Tablet PO (19:57)
[2021-09-08 20:03] VITALS: PULSE 78; RESP 18; O2SAT 95
[2021-09-08] MEDS: MELATONIN 3 MG TABLET 6 MG PO (21:53)
[2021-09-08] MEDS: tiZANidine HCl 2 MG Tablet PO (21:53)
--- NOTE | 2021-09-08 22:26 | NURSING ---
Presents in bed, tearful. 1:1 provided, patient states recent news from daughter of her several cats not being cared for by hired animal husbandry worker, states daughter notified her today that my house is destroyed by animal urine/feces and 3 cats are so sick they probably have to be put down now. Feelings validated. Patient states I will probably need another xanax later due to this, patient states daughter addressing issue. Tearfulness subsides, no distress observed or reported. Resps even and unlabored. Denies requests. Call light in reach.
[2021-09-09] MEDS: traMADol 50 MG Tablet PO (03:37)
[2021-09-09] MEDS: ALPRAZolam 0.25 MG Tablet PO (05:04)
[2021-09-09] MEDS: Lidocaine 5% Patch 1 PATCH TOPICAL (05:04)
[2021-09-09] MEDS: Gabapentin 300 MG Capsule PO ×3 (05:04→21:25)
[2021-09-09] MEDS: Magnesium Chloride 64 MG Delay Rel.Tablet 128 MG PO ×2 (05:05→18:04)
[2021-09-09] MEDS: Tamsulosin HCl 0.4 MG Capsule PO (05:05)
[2021-09-09] MEDS: Pantoprazole Sodium 40 MG Tablet PO (05:05)
[2021-09-09] MEDS: Ascorbic Acid 500 MG Tablet PO (05:05)
[2021-09-09] MEDS: Levothyroxine 112 MCG Tablet PO (05:05)
[2021-09-09] MEDS: Ensure Clear 120 ML Liquid PO ×4 (05:05→21:25)
[2021-09-09] MEDS: Menthol/Lanolin/Calamine/Znox 113 GM Tube 1 APPLIC TOPICAL ×3 (05:06→21:26)
[2021-09-09] MEDS: Fluticasone 0.05% 1 SPRAY NASAL.SRY 2 SPRAY NASAL (05:10)
[2021-09-09] MEDS: Acetaminophen 500 MG Tablet 1000 MG PO ×2 (05:13→19:44)
[2021-09-09] MEDS: Carvedilol 3.125 MG TABLET PO ×2 (08:14→18:03)
[2021-09-09] MEDS: Potassium Chloride Oral Tablet 20 MEQ PO (08:14)
[2021-09-09] MEDS: Hydroxychloroquine 200 MG Tablet PO ×2 (08:14→18:03)
[2021-09-09] MEDS: Doxycycline 100 MG CAPSULE PO ×2 (09:04→18:05)
[2021-09-09 11:25] VITALS: PULSE 20; RESP 88; TEMP 35.9; O2SAT 98
[2021-09-09] MEDS: Ferrous Sulfate 325 MG Tablet PO (12:22)
[2021-09-09 13:25] VITALS: BP 99/62
[2021-09-09] MEDS: tiZANidine HCl 2 MG Tablet PO (21:25)
[2021-09-09] MEDS: MELATONIN 3 MG TABLET 6 MG PO (21:25)
[2021-09-10] MEDS: Acetaminophen 500 MG Tablet 1000 MG PO (04:03)
[2021-09-10] MEDS: Alendronate Sodium 70 MG Tablet 35 MG PO (04:46)
[2021-09-10] MEDS: Menthol/Lanolin/Calamine/Znox 113 GM Tube 1 APPLIC TOPICAL (04:47)
[2021-09-10] MEDS: Levothyroxine 112 MCG Tablet PO (06:46)
[2021-09-10] MEDS: Magnesium Chloride 64 MG Delay Rel.Tablet 128 MG PO (06:46)
[2021-09-10] MEDS: Tamsulosin HCl 0.4 MG Capsule PO (06:46)
[2021-09-10] MEDS: traMADol 50 MG Tablet PO (06:46)
[2021-09-10] MEDS: Pantoprazole Sodium 40 MG Tablet PO (06:46)
[2021-09-10] MEDS: Doxycycline 100 MG CAPSULE PO (06:46)
[2021-09-10] MEDS: Lidocaine 5% Patch 1 PATCH TOPICAL (06:46)
[2021-09-10] MEDS: Ascorbic Acid 500 MG Tablet PO (06:46)
[2021-09-10] MEDS: Fluticasone 0.05% 1 SPRAY NASAL.SRY 2 SPRAY NASAL (06:53)
[2021-09-10] MEDS: Gabapentin 300 MG Capsule PO (06:53)
[2021-09-10] MEDS: Ensure Clear 120 ML Liquid PO (06:53)
[2021-09-10 08:06] VITALS: BP 96/61; PULSE 90; RESP 18; TEMP 36.5; O2SAT 96
[2021-09-10] MEDS: Carvedilol 3.125 MG TABLET PO (08:08)
[2021-09-10] MEDS: Hydroxychloroquine 200 MG Tablet PO (08:08)
[2021-09-10] MEDS: Potassium Chloride Oral Tablet 20 MEQ PO (08:08)
[2021-09-10 09:35] VITALS: PULSE 90; RESP 18; O2SAT 96
--- NOTE | 2021-09-10 10:22 | NURSING ---
Report called to Lou Beltrán
[2021-09-10] MEDS: oxyCODONE 5 MG Tablet PO (10:50)
--- NOTE | 2021-09-10 11:01 | NURSING ---
Pharmacy brought up prescriptions fo Oxycodone 5mg 18 tabs and Tramadol 50mg 12 tabs. [facility] Medication to be given to [facility] flatbed company truck driver to be given to [facility] nurse.
--- NOTE | 2021-09-10 11:57 | NURSING ---
Oxycodone and Tramadol prescriptions given to [facility] personal to provide to Rebecca hilton.
== END 2021-09-10 11:58 | DRG 561 ==
PROVIDERS: Admitting Provider Family Medicine Geriatric Medicine; PCP Family Medicine; Visit Provider Family Medicine Geriatric Medicine
DX: Z47.89 Encounter for other orthopedic aftercare (principal); I27.21 Secondary pulmonary arterial hypertension; M06.9 Rheumatoid arthritis, unspecified; D50.9 Iron deficiency anemia, unspecified; M48.061 Spinal stenosis, lumbar region without neurogenic claudication; I10 Essential (primary) hypertension; K21.9 Gastro-esophageal reflux disease without esophagitis; M79.7 Fibromyalgia; E78.5 Hyperlipidemia, unspecified; E87.6 Hypokalemia; E03.9 Hypothyroidism, unspecified; G89.4 Chronic pain syndrome; Z79.899 Other long term (current) drug therapy; Z79.52 Long term (current) use of systemic steroids; Z79.01 Long term (current) use of anticoagulants; R33.9 Retention of urine, unspecified
CPT/HCPCS: 36415; 36430; 80048; 85014; 85018; 85025; 86850; 86900; 86901; 86920; 86922; 87070; 87077; 87186; 87205; 87426; 87493; 87811; 92507; 92523; 97032; 97110; 97116; 97162; 97166; 97530; 97535; 97802; J7030; P9016; A4216; J1940

== ENCOUNTER 2021-08-24 08:59 | Outpatient (CLI) | payer MEDICARE, SELFPAY ==
[2021-08-24] VITALS (8 sets, daily range): BP systolic 81–110; BP diastolic 51–67; PULSE 79–89; RESP 12–16; TEMP 35.8–36.1; O2SAT 91–94; BMI 24.7
[2021-08-24] MEDS: 0.9% NaCl Peripheral Flush Adult/Peds IV ×2 (11:01→14:04)
[2021-08-24] MEDS: Furosemide 20 MG/2 ML VIAL IV (11:39)
== END 2021-08-24 23:59 | disposition home or self-care (01) ==
LOC: MEDOUTP 09:00
PROVIDERS: PCP Family Medicine; Referring Provider Family Medicine Geriatric Medicine; Visit Provider Family Medicine Geriatric Medicine
DX: D62 Acute posthemorrhagic anemia (principal)
CPT/HCPCS: 36430; 86850; 86900; 86901; 86920; 86922; J7030; P9016; A4216; J1940